=== PATIENT | male | born 1950 | race African-American/Black ===

== ENCOUNTER 2016-11-28 13:18 | Inpatient (IN) | payer MEDICARE, OTHER ==
[~2016-11-28] VITALS: Ht 182.9 cm; Wt 75.0 kg
[~2016-11-28 13:18] MED LIST: ALBU1AER INH; ASPI81TA82 PO; CARV3.125 PO; DABI150 PO; FE T325T PO; FLUT1INH INH; HYDR-3129 PO; LASI20TA PO; LEVO.1 PO; NOVOLOGSS SQ; RANI150 PO; SPIR25 PO
[2016-11-28 13:31] VITALS: BP 114/74; PULSE 87; RESP 16; TEMP 98.6; O2SAT 98
[2016-11-28 13:46] LABS: AUTOMATED NEUTROPHIL # 4.7 TH/MM3 (1.8-7.7); BASOPHIL % 0.4 % (0.0-2.0); EOSINOPHIL % 0.5 % (0.0-4.0); HEMATOCRIT 42.6 % (39.0-51.0); HEMO FLAGS DIFF FINAL; LYMPH % 27.4 % (9.0-44.0); LYMPHOCYTE # 2.2 TH/MM3 (1.0-4.8); MEAN CELL VOLUME 101.2 FL (80.0-100.0); MEAN CORPUSCULAR HEMOGLOBIN 34.3 PG (27.0-34.0); MEAN CORPUSCULAR HGB CONC 33.9 % (32.0-36.0); MONO % 12.1 % (0.0-8.0); NEUT % 59.6 % (16.0-70.0); PLATELET COUNT 138 TH/MM3 (150-450); RED BLOOD COUNT 4.21 MIL/MM3 (4.50-5.90); RED CELL DISTRIBUTION WIDTH 13.2 % (11.6-17.2); WHITE BLOOD COUNT 7.9 TH/MM3 (4.0-11.0)
[2016-11-28 13:50] LABS: APTT (PATIENT) 27.1 SEC (24.3-30.1); INTERNATIONAL NORMALIZED RATIO 1.1 RATIO; PROTHROMBIN TIME - PATIENT 12.1 SEC (9.8-11.6)
--- NOTE | 2016-11-28 13:51 | RADRPT ---
EXAM DATE/TIME: 11/28/2016 13:33 [facility] COMPARISON: CT BRAIN W/O CONTRAST, August 05, 2015, 17:03. INDICATIONS : Stroke alert, right upper extremity weakness. RADIATION DOSE: 56.35 CTDIvol (mGy) This report was called by Joseph to Novak at 1: 50 MEDICAL HISTORY : Non-responsive. SURGICAL HISTORY : Non-responsive. ENCOUNTER: Initial ACUITY: 1 day PAIN SCALE: Non-responsive LOCATION: Bilateral head TECHNIQUE: Multiple contiguous axial images were obtained of the head. Using automated exposure control and adj ustment of the mA and/or kV according to patient size, radiation dose was kept as low as reasonably a chievable to obtain optimal diagnostic quality images. FINDINGS: CEREBRUM: Remote occipital infarct on the right. Scattered areas of low attenuation throughout the white matter . The ventricles are normal for age. No evidence of midline shift, mass lesion, hemorrhage or acute infarction. No extra-axial fluid collections are seen. POSTERIOR FOSSA: The cerebellum and brainstem are intact. The 4th ventricle is midline. The cerebellopontine angle i s unremarkable. EXTRACRANIAL: The visualized portion of the orbits is intact. SKULL: The calvaria is intact. No evidence of skull fracture. CONCLUSION: 1. Remote right occipital infarct. 2. Chronic nonspecific white matter changes. Baudilio Ruiz MD on November 28, 2016 at 13:46 Board Certified Radiologist. This report was verified electronically.
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
[2016-11-28 14:07] LABS: BICARBONATE 24.8 MEQ/L (21.0-32.0); I-STAT POTASSIUM 4.2 MMOL/L (3.5-4.9); POTASSIUM 3.9 MEQ/L (3.5-5.1)
[2016-11-28 14:18] VITALS: BP 137/89; PULSE 89; RESP 18; O2SAT 99
[2016-11-28 14:46] LABS: BLOOD, URINE NEG (NEG); COMMENT (UR) CULT NOT INDICATED; CULTURE IF INDICATED CULT NOT INDICATED; GLUCOSE,URINE NEG (NEG); KETONE, URINE NEG (NEG); MUCUS URINE FEW /lpf (OCC); NITRITE,URINE NEG (NEG); PH, URINE 5.5 (5.0-8.5); SQUAMOUS EPITHELIAL CELL URINE <1 /hpf (0-5); URINE COLOR YELLOW (YELLW/STRAW)
[2016-11-28 14:58] LABS: AMPHETAMINE, URINE NEG (NEG); BARBITURATES, URINE NEG (NEG); COCAINE, URINE POS (NEG)
[2016-11-28] MEDS ORDERED: IOHEXOL 350 MG/ML 10 ML VIAL (for RAD DIAG) IV ONE (15:00)
[2016-11-28 15:39] VITALS: BP 147/88; PULSE 97; RESP 18; O2SAT 96
--- NOTE | 2016-11-28 15:55 | RADRPT ---
EXAM DATE/TIME: 11/28/2016 14:45 This report includes an Addendum and supersedes previous reports for this exam. [facility] COMPARISON: CT BRAIN W/O CONTRAST, November 28, 2016, 13:33. INDICATIONS : Stroke alert; right side weakness. IV CONTRAST: 75 cc Omnipaque 350 (iohexol) IV ; Cumulative dose for multiple exams. RADIATION DOSE: 15.85 CTDIvol (mGy) ; Combined studies MEDICAL HISTORY : Cardiovascular disease. Diabetes mellitus type 2. Lymphoma.Hypertension. SURGICAL HISTORY : CABG Coronary artery stent. ENCOUNTER: Initial ACUITY: 1 day PAIN SCALE: Non-responsive LOCATION: cranial TECHNIQUE: Volumetric scanning was performed using a multi-row detector CT scanner. The data was post processed with a variety of visualization algorithms including full volume maximum intensity projection, multi -planar sliding thin slab reformation, curved planar reformation, and surface rendering techniques. Using automated exposure control and adjustment of the mA and/or kV according to patient size, radiat ion dose was kept as low as reasonably achievable to obtain optimal diagnostic quality images. FINDINGS: There is truncation of the left proximal middle cerebral artery. This is likely related to acute thro mbosis. Clinical correlation is recommended. There is no filling of the distal branches of the left m iddle cerebral artery. The right middle cerebral artery is patent. The anterior cerebral arteries are patent bilaterally. The posterior cerebral arteries are patent bilaterally. Note is made of probable basilar tip aneurysm measuring 4 mm also. CONCLUSION: 1. Truncation of the left proximal middle cerebral artery with no filling of the distal branches kelsie cating probable acute thrombosis. Clinical correlation is recommended. 2. 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 Reggie Boykin MD on November 28, 2016 at 15:46 Board Certified Radiologist. This report was verified electronically. ADDENDUM: The finding were called to Dr. Sen at 3:55 PM on 11/28/16. Reggie Boykin MD on November 28, 2016 at 15:57 Board Certified Radiologist. This report was verified electronically.
--- NOTE | 2016-11-28 16:08 | RADRPT ---
EXAM DATE/TIME: 11/28/2016 14:45 [facility] COMPARISON: No previous studies available for comparison. INDICATIONS : Stroke alert; right side weakness. IV CONTRAST: 75 cc Omnipaque 350 (iohexol) IV ; Cumulative dose for multiple exams. RADIATION DOSE: 15.85 CTDIvol (mGy) ; Combined studies MEDICAL HISTORY : Cardiovascular disease. Hypertension. Diabetes mellitus type 2.Lymphoma. SURGICAL HISTORY : CABG Coronary artery stent. ENCOUNTER: Initial ACUITY: 1 day PAIN SCALE: Non-responsive LOCATION: neck Elevated flow velocities and ICA/CCA ratios have been found to correlate with increased degrees of vessel stenosis, calculated as percentage of diameter relative to a normal segment of distal ICA/CCA. TECHNIQUE: Volumetric scanning was performed using a multirow detector CT scanner. The data was post processed with a variety of visualization algorithms including full-volume maximum intensity projection, multip lanar sliding thin-slab reformation, curved-planar reformation, and surface-rendering techniques. Us ing automated exposure control and adjustment of the mA and/or kV according to patient size, radiatio n dose was kept as low as reasonably achievable to obtain optimal diagnostic quality images. FINDINGS: AORTIC ARCH: There is a bovine arch. No evidence of ostial narrowing. RIGHT CAROTID: The common carotid artery is intact. The carotid bulb has a normal configuration without ulceration o r narrowing. Mild calcified atherosclerotic plaque formation is noted within the right proximal inter nal carotid artery the results in no significant stenosis. The right external carotid artery is paten t. LEFT CAROTID: The common carotid artery is intact. The carotid bulb has a normal configuration without ulceration or narrowing. Moderate calcified atherosclerotic plaque formation is noted within the left proximal i nternal carotid artery resulting in approximately 50% stenosis. The left external carotid artery is p atent. VERTEBRALS: The vertebral arteries have a symmetric diameter. No stenotic lesions are seen. CONCLUSION: No significant stenosis of the internal carotid arteries. Approximately 50% stenosis of the left prox imal internal carotid artery. Calcified atherosclerotic plaque within the proximal internal carotid a rteries bilaterally slightly worse on the left. Reggie Boykin MD on November 28, 2016 at 16:00 Board Certified Radiologist. This report was verified electronically.
[2016-11-28 17:05] VITALS: BP 145/90; PULSE 92; RESP 18; O2SAT 95
[2016-11-28] MEDS ORDERED: ONDANSETRON HCL 4 MG/2 ML VIAL IVP PRN (17:30)
[2016-11-28] MEDS ORDERED: NALOXONE HCL 0.4 MG/ML AMP IV PRN (17:30)
[2016-11-28] MEDS ORDERED: SODIUM CHLORIDE 0.9% FLUSH 10 ML FLUSH IV FLUSH PRN ×2 (17:30→18:15)
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
[2016-11-28] MEDS ORDERED: DEXTROSE 50% IN WATER 50 ML VIAL(D50) IV PUSH PRN (18:15)
[2016-11-28] MEDS ORDERED: ENALAPRILAT 1.25 MG/ML VIAL IV PRN (18:15)
[2016-11-28] MEDS ORDERED: GLUCAGON 1 MG/ML VIAL IM/SQ PRN (18:15)
[2016-11-28 18:48] VITALS: BP 153/90; PULSE 78; RESP 20; TEMP 96.5; O2SAT 95
[2016-11-28 20:00] VITALS: BP 147/90; PULSE 97; RESP 22; TEMP 97.4; O2SAT 95
[2016-11-28] MEDS: ATORVASTATIN 10 MG TAB PO SCH (21:00)
[2016-11-28] MEDS: SODIUM CHLORIDE 0.9% FLUSH 10 ML FLUSH IV FLUSH SCH ×2 (21:00→22:53)
[2016-11-28] MEDS: INSULIN ASPART SUPPLEMENTAL SCALE SQ SCH (21:00)
[2016-11-29] VITALS (10 sets, daily range): BP systolic 126–164; BP diastolic 75–95; PULSE 94–101; RESP 18–28; TEMP 96.8–99; O2SAT 94–100
[2016-11-29] MEDS: INSULIN ASPART SUPPLEMENTAL SCALE SQ SCH ×4 (05:39→21:00)
[2016-11-29] MEDS: SODIUM CHLORIDE 0.9% FLUSH 10 ML FLUSH IV FLUSH SCH ×4 (08:03→21:59)
[2016-11-29] MEDS: ASPIRIN 81 MG CHEW TAB PO SCH ×2 (08:03→10:04)
[2016-11-29 08:23] LABS: HDL CHOLESTEROL 45.9 MG/DL (40.0-60.0)
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
--- NOTE | 2016-11-29 11:00 | RADRPT ---
EXAM DATE/TIME: 11/29/2016 10:43 [facility] COMPARISON: CT BRAIN W/O CONTRAST, November 28, 2016, 13:33. INDICATIONS : Follow up CVA RADIATION DOSE: 79.80 CTDIvol (mGy) MEDICAL HISTORY : Cardiovascular disease. Hypertension. Hepatitis C. SURGICAL HISTORY : NA ENCOUNTER: Subsequent ACUITY: 1 day PAIN SCALE: Non-responsive LOCATION: cranial TECHNIQUE: Multiple contiguous axial images were obtained of the head. Using automated exposure control and adj ustment of the mA and/or kV according to patient size, radiation dose was kept as low as reasonably a chievable to obtain optimal diagnostic quality images. FINDINGS: CEREBRUM: Remote infarct right occipital lobe. Scattered areas of low attenuation throughout the white matter. The ventricles are normal for age. No evidence of midline shift, mass lesion, hemorrhage or acute in farction. No extra-axial fluid collections are seen. POSTERIOR FOSSA: The cerebellum and brainstem are intact. The 4th ventricle is midline. The cerebellopontine angle i s unremarkable. EXTRACRANIAL: The visualized portion of the orbits is intact. SKULL: The calvaria is intact. No evidence of skull fracture. CONCLUSION: 1. Chronic ischemic small vessel vasculopathy. 2. Old right occipital infarct. 3. No acute intracranial abnormality. Baudilio Ruiz MD on November 29, 2016 at 10:56 Board Certified Radiologist. This report was verified electronically.
[2016-11-29 11:57] LABS: HEMOGLOBIN A1a 0.9 %; HEMOGLOBIN A1b 1.4 %; HEMOGLOBIN Ao 86.5 %; HEMOGLOBIN LA1C 1.7 %
--- NOTE | 2016-11-29 16:13 | EKG ---
Date Performed: 11/28/2016 Time Performed: 13:59:12 PTAGE: 65 years EKG: Sinus rhythm POSSIBLE LEFT ATRIAL ENLARGEMENT MODERATE INTRAVENTRICULAR CONDUCTION DELAY ST DEVIATION AND MODERAT E T-WAVE ABNORMALITY, CONSIDER LATERAL ISCHEMIA ST DEVIATION AND MODERATE T-WAVE ABNORMALITY, CONSIDE R INFERIOR ISCHEMIA Left vnricular hypertrophy. When compared to previous tracing, the frequent myrna ture Ventricular contractions have resolved. There may be a slight increase in the inferolatral ST Se gment Changes. Clinical corrolation is advised. ABNORMAL ECG PREVIOUS TRACING : 09/09/2015 10.12 DOCTOR: Trupti Mclean Interpretating Date/Time 11/29/2016 16:11:29
[2016-11-29] MEDS: RESP: ALBUTEROL 2.5 MG/IPRATROPIUM 0.5 MG NEB (PRN) NEB ×2 (16:16→21:43)
--- NOTE | 2016-11-29 17:13 | EC ---
Study Study Date:11/29/2016 STUDY CONCLUSIONS SUMMARY - Left ventricle: The cavity size was mildly to moderately dilated. Wall thickness was normal. Systolic function was normal. The estimated ejection fraction was in the range of 10% to 15%. Akinesis and scarring of the inferoposterior myocardium. - Aortic valve: Valve area: 1.64cm^2 (Vmax). - Mitral valve: Mild to moderate regurgitation. - Left atrium: The atrium was mildly to moderately dilated. - Tricuspid valve: Mild-moderate regurgitation. - Pulmonary arteries: PA peak pressure: 43mm Hg (S). If LV function is below 40, please consider prescribing an ACEI or ARB or document rationale for non-use. PROCEDURE DATA STUDY STATUS: Elective. Procedure: Transthoracic echocardiography. Image quality was good. Scanning was performed from the parasternal, apical, and subcostal acoustic windows. Study completion: The patient tolerated the procedure well. Transthoracic echocardiography. M-mode, complete 2D, complete spectral Doppler, and color Doppler. Height: Height: 72in. Weight: Weight: 169.6lb. Body mass index: BMI: 23.1kg/m^2. Body surface area: BSA: 1.99m^2. Patient status: Inpatient. CARDIAC ANATOMY LEFT VENTRICLE: The cavity size was mildly to moderately dilated. Wall thickness was normal. Systolic function was normal. The estimated ejection fraction was in the range of 10% to 15%. Regional wall motion abnormalities: Akinesis and scarring of the inferoposterior myocardium. AORTIC VALVE: Trileaflet; normal thickness leaflets. Doppler: Transvalvular velocity was within the normal range. There was no stenosis. No regurgitation. Valve area: 1.64cm^2 (Vmax). Indexed valve area: 0.82cm^2/m^2 (Vmax). AORTA: Aortic root: The aortic root was normal in size. MITRAL VALVE: Structurally normal valve. Doppler: Transvalvular velocity was within the normal range. There was no evidence for stenosis. Mild to moderate regurgitation. LEFT ATRIUM: The atrium was mildly to moderately dilated. RIGHT VENTRICLE: The cavity size was normal. Wall thickness was normal. PULMONIC VALVE: Doppler: Transvalvular velocity was within the normal range. There was no evidence for stenosis. No regurgitation. TRICUSPID VALVE: Structurally normal valve. Doppler: Transvalvular velocity was within the normal range. Mild-moderate regurgitation. PULMONARY ARTERY: The main pulmonary artery was normal-sized. Systolic pressure was within the normal range. RIGHT ATRIUM: The atrium was normal in size. PERICARDIUM: There was no pericardial effusion. SYSTEMIC VEINS: Inferior vena cava: The vessel was normal in size. Patient weight: 169.6lb _Ejection fraction:_ 65-75% _Fractional shortening:_ 32% up to 5Kg 5-11.5Kg 11.6-22.9Kg 23-45Kg 45-57Kg Aortic Root 7-13 <17 13-22 17-27 17-27 LA diam 6-13 <23 24-38 33-47 37-40 RVID 10-17 7-15 7-15 7-18 8-17 LVIDd 12-22 <32 24-38 33-47 37-40 LVPW 2-4 3-6 5-7 6-8 7-8 IVS 2-4 3-6 5-7 6-8 7-8 BASIC MEASUREMENTS ADULT NORMAL Left ventricle LV internal dimension, ED, chordal *60.4 mm 43-52 level, PLAX LV internal dimension, ES, chordal *58.7 mm 23-38 level, PLAX Fractional shortening, chordal level, *3 % >29 PLAX LV posterior wall thickness, ED 10.5 mm IVS/LVPW ratio, ED 1.01 <1.3 Volume, ED, MOD, 1-plane 135 ml Volume, ES, MOD, 1-plane 122 ml Ejection fraction, MOD, 1-plane 10 % Stroke volume, MOD, 1-plane 13 ml Volume index, ED, MOD, 1-plane 68 ml/m^2 Volume index, ES, MOD, 1-plane 61 ml/m^2 Stroke index, MOD, 1-plane 6.5 ml/m^2 Volume, ED, MOD, 2-plane 131 ml Volume, ES, MOD, 2-plane 120 ml Ejection fraction, MOD, 2-plane 8 % Stroke volume, MOD, 2-plane 11 ml Volume index, ED, MOD, 2-plane 66 ml/m^2 Volume index, ES, MOD, 2-plane 60 ml/m^2 Stroke index, MOD, 2-plane 5.5 ml/m^2 Ventricular septum Septal thickness, ED 10.6 mm Aortic valve Leaflet separation 19 mm 15-26 BASIC MEASUREMENTS ADULT NORMAL Aortic valve Leaflet separation 19 mm 15-26 Aorta Root diameter, ED 36 mm 20-37 Left atrium Anterior-posterior dimension, ES *47 mm 19-40 Anterior-posterior dimension index, ES *2.36 cm/m^2 <2.2 LA/aortic root ratio 1.31 DOPPLER MEASUREMENTS ADULT NORMAL Main pulmonary artery Pressure, S *43 mm Hg =30 Pressure, ED 25 mm Hg Aortic valve Peak velocity, S 90.9 cm/s Valve area, Vmax 1.64 cm^2 Valve area index, Vmax 0.82 cm^2/m^2 Mitral valve Maximal regurgitant velocity 431 cm/s Tricuspid valve Regurgitant peak velocity 282 cm/s Peak RV-RA gradient, S 32 mm Hg Maximal regurgitant velocity 282 cm/s Systemic veins Estimated CVP 10 mm Hg Right ventricle RV pressure, S *45 mm Hg <30 Pulmonic valve Peak velocity, S 69.2 cm/s Regurgitant velocity, ED 195 cm/s LEGEND: Mean values are shown as u=mean value. Asterisk (*) duarte values outside specified normal range. Prepared and signed by Rich Horne [id number]
[2016-11-29] MEDS: ATORVASTATIN 10 MG TAB PO SCH (21:59)
[2016-11-30] VITALS (12 sets, daily range): BP systolic 119–142; BP diastolic 72–92; PULSE 96–115; RESP 20–25; TEMP 97.7–99.7; O2SAT 96–100
[2016-11-30] MEDS: INSULIN ASPART SUPPLEMENTAL SCALE SQ SCH ×4 (05:10→21:49)
[2016-11-30] MEDS: SODIUM CHLORIDE 0.9% FLUSH 10 ML FLUSH IV FLUSH SCH ×4 (08:00→21:49)
[2016-11-30] MEDS: ASPIRIN 81 MG CHEW TAB PO SCH (08:36)
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
[2016-11-30] MEDS ORDERED: CARV3.125 PO (10:16)
[2016-11-30] MEDS ORDERED: TRAZ50TA12 PO (10:16)
[2016-11-30] MEDS ORDERED: RANI150C PO (10:16)
[2016-11-30] MEDS ORDERED: XANA1TAB2 PO (10:16)
[2016-11-30] MEDS ORDERED: FLUT1INH INH (10:16)
[2016-11-30] MEDS ORDERED: ASPI81CH CHEW (10:16)
[2016-11-30] MEDS ORDERED: FURO40TA PO (10:16)
[2016-11-30] MEDS ORDERED: ZOLO100T PO (10:16)
[2016-11-30] MEDS ORDERED: LISI-519 PO (10:16)
[2016-11-30] MEDS ORDERED: LEVO100T5 PO (10:16)
[2016-11-30] MEDS ORDERED: LYRI50CA PO (10:16)
[2016-11-30] MEDS ORDERED: LACT10SO PO (10:16)
[2016-11-30] MEDS ORDERED: POTA10TA8 PO (10:16)
[2016-11-30] MEDS ORDERED: HYDR-3535 PO (10:16)
[2016-11-30] MEDS ORDERED: SPIR25 PO (10:16)
[2016-11-30] MEDS: CARVEDILOL 3.125 MG TAB PO SCH ×2 (11:30→21:45)
--- NOTE | 2016-11-30 11:57 | HHI.PR ---
Subjective Remarks still aphasic Objective Vital Signs Date Time Temp Pulse Resp B/P Pulse Ox O2 Delivery O2 Flow Rate FiO2 11/30/16 08:39 98.4 101 20 140/85 100 11/30/16 08:35 Nasal Cannula 2.00 11/30/16 04:00 98.1 101 20 119/76 98 11/30/16 02:05 96 11/30/16 00:00 99.7 102 20 131/82 96 11/29/16 21:45 95 Nasal Cannula 2.00 11/29/16 20:00 96.8 101 20 126/79 99 11/29/16 16:00 99 Nasal Cannula 2.00 11/29/16 16:00 99.0 96 19 126/78 99 11/29/16 12:00 98.9 94 19 132/95 100 I/O 11/29/16 11/29/16 11/29/16 11/30/16 11/30/16 11/30/16 07:00 15:00 23:00 07:00 15:00 23:00 Intake Total 60 ml Balance 60 ml Intake Oral 60 ml # Voids 2 2 2 # Bowel Movements 0 0 0 Result Diagram: 11/28/16 1320 11/28/16 1320 Objective Remarks awake alert aphasic motor intact sits at edge of bed stilll mild righ side weakness gait defer to PT Medications and IVs a/p left mca stroke restart AC as high risk for more infarcts given his hx. f/u ct 11/29 neg. pt-ot st d/c -Padmini Cook MD November 30, 2016 11:57
[2016-11-30] MEDS: ATORVASTATIN 10 MG TAB PO SCH (21:45)
[2016-11-30] MEDS: FUROSEMIDE 40 MG TAB PO SCH (21:46)
[2016-12-01] VITALS (9 sets, daily range): BP systolic 110–140; BP diastolic 67–82; PULSE 89–107; RESP 18–24; TEMP 96–99.9; O2SAT 97–100
[2016-12-01] MEDS: INSULIN ASPART SUPPLEMENTAL SCALE SQ SCH ×4 (07:00→20:58)
[2016-12-01] MEDS: SODIUM CHLORIDE 0.9% FLUSH 10 ML FLUSH IV FLUSH SCH ×4 (09:00→20:59)
[2016-12-01] MEDS: FLUTICASONE 100 MCG/VILANTEROL 25 MCG INHALER INH SCH (09:00)
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
[2016-12-01] MEDS: LEVOTHYROXINE SODIUM 100 MCG TAB PO SCH (09:51)
[2016-12-01] MEDS: ASPIRIN 81 MG CHEW TAB PO SCH (09:51)
[2016-12-01] MEDS: POTASSIUM CHLORIDE 10 MEQ CONTROLLED RELEASE TAB PO SCH (09:51)
[2016-12-01] MEDS: LISINOPRIL 5 MG TAB PO SCH (09:51)
[2016-12-01] MEDS: CARVEDILOL 3.125 MG TAB PO SCH ×2 (09:51→20:56)
[2016-12-01] MEDS: SPIRONOLACTONE 25 MG TAB PO SCH (09:51)
[2016-12-01] MEDS: FUROSEMIDE 40 MG TAB PO SCH ×2 (09:51→20:56)
--- NOTE | 2016-12-01 14:38 | HM ---
Date Performed: 11/28/2016 Time Performed: 19:50:00 HOOKUP DATE: 11/28/16 07:50:00 PM Sat ANALYSIS START TIME: 11/28/2016 7:55:00 PM ANALYSIS END TIME: 11/29/2016 7:13:00 PM PATIENT AGE: 65 PATIENT HEIGHT PATIENT WEIGHT DRUG LIST PATIENT DIAGNOSIS: cva TEST NARRATIVE: The patient's average heart rate was 99 BPM. Heart rates greater than 120 B PM were noted 1% of the time. No episodes of bradycardia were noted. No pauses exceeding 2.0 sec onds were noted. 2725 ventricular ectopics, which represented 2% of the total beat count, were no [place]. The highest ventricular ectopic frequency occurred from 10:00 AM to 11:00 AM Sun. During this time 183 VE(s) occurred. Ventricular ectopics were observed as 1917 isolated beat(s), as 353 couplet (s) and as 30 run(s). Some of the ventricular beats occurred in bigeminal cycles. 5 supraventric ular ectopics, which represented < 1% of the total beat count, were noted. The highest supraventricu lar ectopic frequency occurred from 11:00 PM to 12:00 AM Sun. During this time 3 SVE(s) occurred. Multiple episodes of ST depression (defined as -1.0 mm or more) were noted in channel 1. The maxi mum depression of -3.8 mm occurred at 07:07:30 PM Sun. Multiple episodes of ST depression (defined a s -1.0 mm or more) were noted in channel 2. The maximum depression of -4.1 mm occurred at 07:54:04 AM Sun. Multiple episodes of ST depression (defined as -1.0 mm or more) were noted in channel 3. T he maximum depression of -3.9 mm occurred at 01:43:54 PM Sun. TEST INTERPRETATION: The patient is monitored for 24 hours 18 minutes. The average heart rate wa s 99, minimum heart rate 65, maximum heart rate of 128. A number of nonsustained ventricular tachycar tammy runs are seen up to 10 beats at about 169 bpm. CONCLUSIONS: 1. Abnormal Holter monitor most note able for multiple runs of nonsustained ventricular tachycardia up to about 10 beats generally in the range of 150-175 bpm. Clinical correlation is required. There is no sustained atrial fibrillation. Signed by : Sina Castellon
[2016-12-01] MEDS: ATORVASTATIN 10 MG TAB PO SCH (20:56)
[2016-12-02] VITALS (8 sets, daily range): BP systolic 105–133; BP diastolic 64–78; PULSE 76–90; RESP 18–22; TEMP 97.4–98.9; O2SAT 93–98
[2016-12-02] MEDS: INSULIN ASPART SUPPLEMENTAL SCALE SQ SCH ×4 (07:00→21:58)
[2016-12-02] MEDS: FLUTICASONE 100 MCG/VILANTEROL 25 MCG INHALER INH SCH (09:00)
[2016-12-02] MEDS: SODIUM CHLORIDE 0.9% FLUSH 10 ML FLUSH IV FLUSH SCH ×4 (09:00→22:37)
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
[2016-12-02] MEDS: ASPIRIN 81 MG CHEW TAB PO SCH (09:43)
[2016-12-02] MEDS: LEVOTHYROXINE SODIUM 100 MCG TAB PO SCH (09:43)
[2016-12-02] MEDS: SPIRONOLACTONE 25 MG TAB PO SCH (09:44)
[2016-12-02] MEDS: CARVEDILOL 3.125 MG TAB PO SCH ×2 (09:44→22:38)
[2016-12-02] MEDS: POTASSIUM CHLORIDE 10 MEQ CONTROLLED RELEASE TAB PO SCH (09:44)
[2016-12-02] MEDS: FUROSEMIDE 40 MG TAB PO SCH ×2 (09:44→22:38)
[2016-12-02] MEDS: LISINOPRIL 5 MG TAB PO SCH (09:44)
[2016-12-02] MEDS ORDERED: BISACODYL 10 MG SUPP RECTAL PRN (10:45)
[2016-12-02] MEDS ORDERED: MAGNESIUM CITRATE SOLN 300 ML BTL PO ONE (12:45)
[2016-12-02 17:31] LABS: BICARBONATE 23.3 MEQ/L (21.0-32.0)
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
[2016-12-02] MEDS: DABIGATRAN ETEXILATE 150 MG CAP PO SCH (22:38)
[2016-12-02] MEDS: ATORVASTATIN 10 MG TAB PO SCH (22:38)
[2016-12-03] VITALS (7 sets, daily range): BP systolic 125–140; BP diastolic 62–83; PULSE 72–92; RESP 18–20; TEMP 97–97.9; O2SAT 94–99
[2016-12-03] MEDS: INSULIN ASPART SUPPLEMENTAL SCALE SQ SCH ×2 (06:45→11:00)
[2016-12-03] MEDS: FLUTICASONE 100 MCG/VILANTEROL 25 MCG INHALER INH SCH (09:00)
[2016-12-03] MEDS: SODIUM CHLORIDE 0.9% FLUSH 10 ML FLUSH IV FLUSH SCH ×2 (09:00→09:18)
[2016-12-03] MEDS: DABIGATRAN ETEXILATE 150 MG CAP PO SCH (09:14)
[2016-12-03] MEDS: LEVOTHYROXINE SODIUM 100 MCG TAB PO SCH (09:14)
[2016-12-03] MEDS: SPIRONOLACTONE 25 MG TAB PO SCH (09:14)
[2016-12-03] MEDS: FUROSEMIDE 40 MG TAB PO SCH (09:14)
[2016-12-03] MEDS: ASPIRIN 81 MG CHEW TAB PO SCH (09:15)
[2016-12-03] MEDS: POTASSIUM CHLORIDE 10 MEQ CONTROLLED RELEASE TAB PO SCH (09:15)
[2016-12-03] MEDS: CARVEDILOL 3.125 MG TAB PO SCH (09:15)
[2016-12-03] MEDS: LISINOPRIL 5 MG TAB PO SCH (09:18)
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
[2016-12-03] MEDS ORDERED: PRAD150C PO (12:04)
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
== END 2016-12-03 18:35 | DRG 65 ==
LOC: NEPE 13:18 → NEDA 17:32 → N05B 18:22
PROVIDERS: ADMIT Hospitalist; ATTEND Hospitalist
DX: I63.312 Cerebral infarction due to thrombosis of left middle cerebral artery (principal); G81.91 Hemiplegia, unspecified affecting right dominant side; I47.2 Ventricular tachycardia; C85.90 Non-Hodgkin lymphoma, unspecified, unspecified site; I11.0 Hypertensive heart disease with heart failure; I50.9 Heart failure, unspecified; R47.01 Aphasia; R29.810 Facial weakness; E11.9 Type 2 diabetes mellitus without complications; R47.1 Dysarthria and anarthria; I65.22 Occlusion and stenosis of left carotid artery; E03.9 Hypothyroidism, unspecified; I25.10 Atherosclerotic heart disease of native coronary artery without angina pectoris; K21.9 Gastro-esophageal reflux disease without esophagitis; I25.2 Old myocardial infarction; F10.10 Alcohol abuse, uncomplicated; F12.10 Cannabis abuse, uncomplicated; F14.10 Cocaine abuse, uncomplicated; F17.210 Nicotine dependence, cigarettes, uncomplicated; Z79.01 Long term (current) use of anticoagulants; Z86.718 Personal history of other venous thrombosis and embolism; Z92.21 Personal history of antineoplastic chemotherapy; Z95.1 Presence of aortocoronary bypass graft; Z95.5 Presence of coronary angioplasty implant and graft
CPT/HCPCS: 70450; 70496; 70498; 76937; 80048; 80061; 80307; 81001; 82140; 82435; 82550; 82565; 82947; 82948; 83036; 83605; 83735; 84132; 84295; 84484; 84520; 85025; 85384; 85610; 85730; 86850; 86900; 86901; 93005; 93225; 93226; 93306; 94640; 94664; 99292; Q9967

== ENCOUNTER 2017-04-25 14:01 | Inpatient (IN) | payer MEDICARE, OTHER ==
[2017-04-25] VITALS (7 sets, daily range): BP systolic 99–114; BP diastolic 60–75; PULSE 70–142; RESP 19–32; TEMP 97.2–99.2; O2SAT 96–100
[~2017-04-25] VITALS: Ht 172.7 cm; Wt 67.0 kg
[~2017-04-25 14:01] MED LIST changes: -ALBU1AER INH; +ASPI81CH CHEW; -ASPI81TA82 PO; -DABI150 PO; -FE T325T PO; +FURO40TA PO; -HYDR-3129 PO; -LASI20TA PO; -LEVO.1 PO; +LEVO100T5 PO; +LISI-519 PO; +LYRI50CA PO; -NOVOLOGSS SQ; +POTA10TA8 PO; +PRAD150C PO; -RANI150 PO; +RANI150C PO; +ZOLO100T PO
[2017-04-25 14:50] LABS: BLOOD GAS BASE EXCESS -1.5 mmol/L (-2-2); BLOOD GAS CARBOXYHEMOGLOBIN 1.1 % (0-4); BLOOD GAS HCO3 22 mmol/L (22-26); BLOOD GAS METHEMOGLOBIN 0.5 % (0-2); BLOOD GAS O2 HGB SATURATION 93 % (90-100); BLOOD GAS OXYGEN CONTENT 21.1 Vol % (12.0-20.0); BLOOD GAS PCO2 30 mmHg (38-42); BLOOD GAS PO2 79 mmHG (61-120); BLOOD GAS TOTAL HGB 16.1 G/DL (12.0-16.0); CRITICAL VALUE NO; DRAW SITE RT FEMORAL; LITER FLOW 4 L/M; NUMBER OF ARTERIAL PUNCTURES 1; OXYGEN DEVICE NASAL CANNULA; STAT YES; TEMP CORR TO 98.6
[2017-04-25 14:50] LABS: AUTOMATED NEUTROPHIL # 6.3 TH/MM3 (1.8-7.7); BASOPHIL % 0.2 % (0.0-2.0); EOSINOPHIL % 0.1 % (0.0-4.0); HEMATOCRIT 53.6 % (39.0-51.0); HEMO FLAGS DIFF FINAL; LYMPH % 13.3 % (9.0-44.0); LYMPHOCYTE # 1.1 TH/MM3 (1.0-4.8); MEAN CELL VOLUME 99.6 FL (80.0-100.0); MEAN CORPUSCULAR HEMOGLOBIN 33.4 PG (27.0-34.0); MEAN CORPUSCULAR HGB CONC 33.6 % (32.0-36.0); MONO % 13.4 % (0.0-8.0); PLATELET COUNT 166 TH/MM3 (150-450); RED BLOOD COUNT 5.38 MIL/MM3 (4.50-5.90); RED CELL DISTRIBUTION WIDTH 14.7 % (11.6-17.2); WHITE BLOOD COUNT 8.6 TH/MM3 (4.0-11.0)
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
[2017-04-25 14:58] LABS: APTT (PATIENT) 34.8 SEC (24.3-30.1); INTERNATIONAL NORMALIZED RATIO 1.8 RATIO; PROTHROMBIN TIME - PATIENT 20.1 SEC (9.8-11.6)
[2017-04-25 15:03] LABS: ANION GAP 14 MEQ/L (5-15); BICARBONATE 20.8 MEQ/L (21.0-32.0); BLOOD UREA NITROGEN 105 MG/DL (7-18); CHLORIDE 106 MEQ/L (98-107); GLOMERULAR FILTRATION RATE 46 ML/MIN (>89); POTASSIUM 3.6 MEQ/L (3.5-5.1); SODIUM (NA) 141 MEQ/L (136-145)
[2017-04-25 15:03] LABS: BLOOD, URINE MOD (NEG); COMMENT (UR) CULT NOT INDICATED; CULTURE IF INDICATED CULT NOT INDICATED; GLUCOSE,URINE NEG (NEG); KETONE, URINE NEG (NEG); NITRITE,URINE NEG (NEG); PH, URINE 5.5 (5.0-8.5); SQUAMOUS EPITHELIAL CELL URINE 1 /hpf (0-5); URINE COLOR YELLOW (YELLW/STRAW)
--- NOTE | 2017-04-25 15:09 | RADRPT ---
EXAM DATE/TIME: 04/25/2017 14:43 [facility] COMPARISON: CHEST SINGLE AP, September 09, 2015, 10:38. INDICATIONS : Short of Breath MEDICAL HISTORY : Cardiovascular disease. Hypertension. Hepatitis C. SURGICAL HISTORY : CABG. ENCOUNTER: Initial ACUITY: 1 day PAIN SCORE: Non-responsive. LOCATION: Bilateral chest FINDINGS: There is advanced cardiomegaly. There is no overt congestive failure. The lungs are clear. The patient is post median sternotomy. The osseous structures are intact. CONCLUSION: 1. Cardiomegaly without overt congestive failure. 2. Stable compared to previous study dated 09/09/15. Get Desir MD on April 25, 2017 at 15:07 Board Certified Radiologist. This report was verified electronically.
[2017-04-25] MEDS ORDERED: SODIUM CHLOR 0.9% 1000 ML INJ 1,000 ML IV ONE (15:15)
[2017-04-25 15:17] LABS: ALKALINE PHOSPHATASE 93 U/L (45-117); ALT (GPT) 1153 U/L (12-78); AST (GOT) 1285 U/L (15-37); CREATINE KINASE 2242 U/L (39-308)
--- NOTE | 2017-04-25 15:44 | RADRPT ---
EXAM DATE/TIME: 04/25/2017 15:26 [facility] COMPARISON: CT BRAIN W/O CONTRAST, November 29, 2016, 10:43. INDICATIONS : Altered mental status. RADIATION DOSE: 29.15 CTDIvol (mGy) MEDICAL HISTORY : Cardiovascular disease. Stroke Hepatitis C. SURGICAL HISTORY : CABG ENCOUNTER: Initial ACUITY: 1 day PAIN SCALE: Non-responsive LOCATION: cranial TECHNIQUE: Multiple contiguous axial images were obtained of the head. Using automated exposure control and adj ustment of the mA and/or kV according to patient size, radiation dose was kept as low as reasonably a chievable to obtain optimal diagnostic quality images. DICOM format image data is available electro nically for review and comparison. FINDINGS: There are stable areas of encephalomalacia in the left basal ganglia in the low convexity right parie darrin region. A small area of encephalomalacia in the anterior left temporal region was likely acute or subacute at the time of the prior scan and now appears remote. There is patchy moderate diminished a ttenuation in deep white matter structures elsewhere consistent with microvascular ischemic change. T here is no evidence of intracranial hemorrhage or mass. There is nothing to specifically suggest acut e infarction. The extracranial structures are benign and intact. CONCLUSION: Old strokes and chronic white matter changes. Martir Gauthier MD on April 25, 2017 at 15:40 Board Certified Radiologist. This report was verified electronically.
[2017-04-25 15:55] LABS: CKMB 12.4 NG/ML (0.5-3.6)
--- NOTE | 2017-04-25 16:10 | RADRPT ---
EXAM DATE/TIME: 04/25/2017 15:34 [facility] COMPARISON: No previous studies available for comparison. INDICATIONS : Abdominal pain. ORAL CONTRAST: No oral contrast ingested. RADIATION DOSE: 9.96 CTDIvol (mGy) MEDICAL HISTORY : Stroke. Hepatitis C. Congestive heart failure. SURGICAL HISTORY : CABG ENCOUNTER: Initial ACUITY: 1 day PAIN SCALE: Non-responsive LOCATION: Bilateral abdomen TECHNIQUE: Volumetric scanning of the abdomen and pelvis was performed. Using automated exposure control and ad justment of the mA and/or kV according to patient size, radiation dose was kept as low as reasonably achievable to obtain optimal diagnostic quality images. DICOM format image data is available electro nically for review and comparison. FINDINGS: Cardiomegaly. Median sternotomy. Coronary calcification. Lung bases are clear. There are degenerative changes of the spine noted. Metallic foreign body is noted to the left of L5-S1 and L4 vertebral bod ies. Liver, spleen, left kidney, pancreas, adrenal glands unremarkable. There is high attenuation wit hin the gallbladder possibly representing sludge or vicarious excretion of contrast from previous con trasted study. There is a cyst at the midpole of the right kidney, simple in appearance measuring 5.8 cm. There is a 2 mm nonobstructing right lower pole calculus. Atherosclerotic calcification of the a leesa and iliac vessels. Dasilva catheter is noted within the urinary bladder which contains a small monty unt of air. No evidence of bowel obstruction. No adenopathy or aneurysm.. CONCLUSION: 1. Atherosclerosis. 2. Right renal cyst and right lower pole nonobstructing renal calculus. 3. No inflammatory changes are seen. Archie Oshea MD on April 25, 2017 at 16:06 Board Certified Radiologist. This report was verified electronically.
[2017-04-25] MEDS ORDERED: SODIUM CHLORID 0.9% 500 ML INJ 500 ML IV ONE (16:15)
[2017-04-25] MEDS ORDERED: metroNIDAZOLE 500 MG INJ 100 ML IV ONE (16:15)
[2017-04-25] MEDS ORDERED: PIPERACIL-TAZO 2.25 GM PREMIX 50 ML IV ONE (16:15)
[2017-04-25] MEDS ORDERED: DILTIAZEM HCL 25 MG/5 ML VIAL IV ONE ×2 (16:30→17:45)
[2017-04-25 16:41] LABS: LACTIC ACID GHOST NOT REPORTABLE
[2017-04-25 17:21] LABS: ACETAMINOPHEN LESS THAN 2.0 MCG/ML (10.0-30.0); ALCOHOL LESS THAN 3 MG/DL (0-5)
[2017-04-25] MEDS ORDERED: POTA10TA15 PO (18:40)
[2017-04-25] MEDS ORDERED: NITR0.4S SL (18:40)
[2017-04-25] MEDS ORDERED: PRAD150C PO (18:40)
[2017-04-25] MEDS ORDERED: LEVO125T4 PO (18:40)
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
[2017-04-25] MEDS ORDERED: CHLORHEXIDINE GLUCONATE 2 % 1 PACK (2 CLOTHS)(extra cloths) TOPICAL PRN (22:30)
[2017-04-25] MEDS ORDERED: MISCELLANEOUS NURSING INFORMATION XX SCH (22:45)
[2017-04-25] MEDS ORDERED: ONDANSETRON HCL 4 MG/2 ML VIAL IV PUSH PRN (22:45)
[2017-04-25] MEDS ORDERED: SODIUM CHLORIDE 0.9% FLUSH 10 ML FLUSH IV FLUSH PRN (22:45)
[2017-04-25] MEDS ORDERED: MAGNESIUM HYDROXIDE SUSP 30 ML CUP PO PRN (22:45)
[2017-04-25] MEDS ORDERED: DILTIAZEM HCL 25 MG/5 ML VIAL IV PUSH ONE (22:45)
[2017-04-25] MEDS ORDERED: RESP: ALBUTEROL 2.5 MG/3 ML NEB (PRN) INH (22:45)
[2017-04-25] MEDS ORDERED: SENNOSIDES 8.6 MG TAB PO PRN (22:45)
[2017-04-25] MEDS ORDERED: CHLORHEXIDINE GLUCONATE 2 % 1 PACK (2 CLOTHS) TOP PRN (22:45)
[2017-04-25] MEDS ORDERED: LACTULOSE SYRUP 20 GM/30 ML CUP PO PRN (22:45)
[2017-04-25] MEDS ORDERED: DILTIAZEM INJ 125 MG in SODIUM CHLORIDE 0.9% INJ 100 ML IV PRN (22:45)
[2017-04-25] MEDS ORDERED: BISACODYL 10 MG SUPP RECTAL PRN (22:45)
[2017-04-25] MEDS ORDERED: ASPIRIN 81 MG CHEW TAB CHEW ONE (23:30)
[2017-04-26] VITALS (13 sets, daily range): BP systolic 84–107; BP diastolic 59–67; PULSE 67–122; RESP 22–32; TEMP 97.2–97.8; O2SAT 96–100
[2017-04-26] MEDS: CEFEPIME INJ 2,000 MG in SODIUM CHLORIDE 0.9% INJ 100 ML IV SCH ×2 (00:29→14:29)
[2017-04-26] MEDS: DABIGATRAN ETEXILATE 150 MG CAP PO SCH ×3 (00:30→21:30)
[2017-04-26] MEDS ORDERED: DIGOXIN 0.5 MG/2 ML VIAL IV PUSH ONE (03:00)
[2017-04-26] MEDS: CHLORHEXIDINE GLUCONATE 2 % 1 PACK (2 CLOTHS) TOP SCH (03:12)
[2017-04-26] MEDS: CHLORHEXIDINE GLUCONATE 2 % 1 PACK (2 CLOTHS)(taper/protocol) TOPICAL SCH (03:12)
[2017-04-26] MEDS: RESP: ALBUTEROL 2.5 MG/IPRATROPIUM 0.5 MG NEB (SCH) INH ×4 (04:17→20:27)
[2017-04-26 05:01] LABS: AUTOMATED NEUTROPHIL # 5.1 TH/MM3 (1.8-7.7); BASOPHIL % 0.1 % (0.0-2.0); EOSINOPHIL % 0.3 % (0.0-4.0); HEMATOCRIT 52.5 % (39.0-51.0); HEMO FLAGS DIFF FINAL; LYMPH % 12.4 % (9.0-44.0); LYMPHOCYTE # 0.9 TH/MM3 (1.0-4.8); MEAN CELL VOLUME 100.9 FL (80.0-100.0); MEAN CORPUSCULAR HEMOGLOBIN 32.9 PG (27.0-34.0); MEAN CORPUSCULAR HGB CONC 32.6 % (32.0-36.0); MONO % 14.4 % (0.0-8.0); NEUT % 72.8 % (16.0-70.0); PLATELET COUNT 149 TH/MM3 (150-450); RED CELL DISTRIBUTION WIDTH 14.9 % (11.6-17.2)
[2017-04-26 05:06] LABS: ANION GAP 11 MEQ/L (5-15); AST (GOT) 937 U/L (15-37); BICARBONATE 21.6 MEQ/L (21.0-32.0); BLOOD UREA NITROGEN 98 MG/DL (7-18); CHLORIDE 112 MEQ/L (98-107); GLOMERULAR FILTRATION RATE 47 ML/MIN (>89); MAGNESIUM 3.6 MG/DL (1.5-2.5); POTASSIUM 3.9 MEQ/L (3.5-5.1); SODIUM (NA) 145 MEQ/L (136-145)
[2017-04-26 05:17] LABS: ALKALINE PHOSPHATASE 87 U/L (45-117); ALT (GPT) 1011 U/L (12-78); TOTAL BILIRUBIN ADULT 5.1 MG/DL (0.2-1.0)
--- NOTE | 2017-04-26 05:52 | RADRPT ---
EXAM DATE/TIME: 04/26/2017 03:43 [facility] COMPARISON: CHEST SINGLE AP, April 25, 2017, 14:43. INDICATIONS : Shortness of breath, possible pulmonary disease. MEDICAL HISTORY : Cardiovascular disease. Hepatitis C. Hypertension. SURGICAL HISTORY : CABG. ENCOUNTER: Subsequent ACUITY: 2 days PAIN SCORE: Non-responsive. LOCATION: Bilateral chest FINDINGS: Lungs are focally clear. No pleural effusion evident. Cardiac contours are stable with mild cardiac e nlargement. Sternotomy wires noted.. CONCLUSION: Stable chest Martir Gauthier MD on April 26, 2017 at 5:51 Board Certified Radiologist. This report was verified electronically.
[2017-04-26] MEDS: LEVOTHYROXINE SODIUM 125 MCG TAB PO SCH (06:00)
[2017-04-26] MEDS: PANTOPRAZOLE SODIUM 40 MG VIAL IV PUSH SCH (09:00)
[2017-04-26] MEDS: DOCUSATE SODIUM 50 MG/SENNA 8.6 MG TAB PO SCH ×2 (09:00→21:30)
[2017-04-26] MEDS: ASPIRIN 81 MG CHEW TAB CHEW SCH (09:00)
[2017-04-26] MEDS: SODIUM CHLORIDE 0.9% FLUSH 10 ML FLUSH IV FLUSH SCH ×2 (09:00→21:30)
[2017-04-26] MEDS: FLUTICASONE 100 MCG/VILANTEROL 25 MCG INHALER INH SCH (09:00)
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
[2017-04-26] MEDS ORDERED: DIGOXIN 0.5 MG/2 ML VIAL IV PUSH SCH (11:00)
--- NOTE | 2017-04-26 12:08 | EKG ---
Date Performed: 04/26/2017 Time Performed: 04:56:46 PTAGE: 66 years EKG: Atrial flutter with 4:1 A-V block Right bundle branch block Possible anteroseptal infarct - age undetermined LVH with secondary repolarization abnormality Inferior/lateral ST-T changes may be due to hypertrophy and/or ischemia Compared to previous tracing rate has slowed significantly Abnorma l ECG PREVIOUS TRACING : 04/25/2017 23.38 DOCTOR: Gene Lima Interpretating Date/Time 04/26/2017 12:07:40
--- NOTE | 2017-04-26 12:48 | EKG ---
Date Performed: 04/25/2017 Time Performed: 23:38:10 PTAGE: 66 years EKG: Atrial flutter with rapid ventricular response Cannot rule out anteroseptal infarct - age u ndetermined LVH with secondary repolarization abnormality Inferior/lateral ST-T changes may be due to hypertrophy and/or ischemia Abnormal ECG Compared to prior tracing no significant change PREVIOUS TRACING : 04/25/2017 14.07 DOCTOR: Gene Lima Interpretating Date/Time 04/26/2017 12:46:47
--- NOTE | 2017-04-26 13:44 | PD.WCN.NOT ---
Wound Consult Description: Received consult from Doctor Topete for wound management of R buttock wound Communicated with: MINOO Patel 5th floor [facility] and Doctor Isidra Davis Recommendation: Please cleanse buttock wound with normal saline or wound cleanser and pat dry. [place] periwound with skin prep and cover with ABD pad and paper tape. Change dressing as needed. Additional Information: Patient seen earlier around 1230 on the 5th floor [facility], for evaluation of wound to R buttock. Patient had been laying in recliner chair for 30 hours per history and physical, before coming to the hospital. Patient noted laying on [facility] Aparna low airloss bed. Turned patient to L side with moderate assistance of proposal manager writer for wound assessment. Patient noted with large open wound to R buttock . Wound measures 15cm x 10cm. Wound appears to have been a deep tissue injury which is still opening at 12 o'clock. Wound has minimal sanguinous drainage without odor. Wound bed presents with ~70% red non granulation tissue, ~20% soft thin black tissue, and ~10% yellow tissue at edges.Wound has large oval shape with defined wound margins.Cleansed wound with normal saline and sprayed periwound with skin prep before applying two ABD pads over wound bed in a staggered fashion. Secured dressing with ABD pad and tape. [employer] emergency department manager was turned on and bed was set for the correct weight.Removed thick cloth under pad and soiled ultra sorb pad under patient. Also removed saturated towel placed over patient's catheter. Applied new ultra sorb pad under patient.Pillow placed under R buttock to Offload pressure. Leona Sinclair [facility] Apr 26, 2017 13:44
--- NOTE | 2017-04-26 15:00 | PD.CONS ---
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 staff as well as the review of records all occurred today. I also attest that the listed assessment and stated plan reflect my best clinical judgment today based on the combination of historical information, prior notes, and today's exam/ interactions. When time spent is documented, it refers only to time spent today by the signer, or if indicated, combined time spent today by collaborating physician/nurse practitioner. Soheila Brewer Apr 26, 2017 15:00
--- NOTE | 2017-04-26 16:11 | EKG ---
Date Performed: 04/25/2017 Time Performed: 14:07:44 PTAGE: 66 years EKG: Atrial flutter with 2:1 block MODERATE INTRAVENTRICULAR CONDUCTION DELAY ST DEVIATION AND M ODERATE T-WAVE ABNORMALITY, CONSIDER ANTEROLATERAL ISCHEMIA ST DEVIATION AND MODERATE T-WAVE ABNORMAL ITY, CONSIDER INFERIOR ISCHEMIA Compared to previous tracing, atrial flutter has replaced Sinus rhyth m . ABNORMAL ECG PREVIOUS TRACING : 11/28/2016 13.59 DOCTOR: Gene Lima Interpretating Date/Time 04/26/2017 16:09:21
[2017-04-26] MEDS: DIGOXIN 0.5 MG/2 ML VIAL IV PUSH SCH (21:29)
[2017-04-27] VITALS (18 sets, daily range): BP systolic 96–144; BP diastolic 64–83; PULSE 82–132; RESP 19–31; TEMP 97.5–98; O2SAT 78–100
[2017-04-27] MEDS: CHLORHEXIDINE GLUCONATE 2 % 1 PACK (2 CLOTHS) TOP SCH (00:40)
[2017-04-27] MEDS: CHLORHEXIDINE GLUCONATE 2 % 1 PACK (2 CLOTHS)(taper/protocol) TOPICAL SCH (00:40)
[2017-04-27] MEDS: CEFEPIME INJ 2,000 MG in SODIUM CHLORIDE 0.9% INJ 100 ML IV SCH ×2 (00:40→15:18)
[2017-04-27] MEDS: RESP: ALBUTEROL 2.5 MG/IPRATROPIUM 0.5 MG NEB (SCH) INH ×4 (04:08→19:38)
[2017-04-27] MEDS: LEVOTHYROXINE SODIUM 125 MCG TAB PO SCH (05:24)
[2017-04-27 05:54] LABS: AUTOMATED NEUTROPHIL # 4.7 TH/MM3 (1.8-7.7); BASOPHIL % 0.2 % (0.0-2.0); EOSINOPHIL # 0.1 TH/MM3 (0-0.4); EOSINOPHIL % 0.9 % (0.0-4.0); HEMATOCRIT 51.6 % (39.0-51.0); HEMO FLAGS DIFF FINAL; LYMPHOCYTE # 0.9 TH/MM3 (1.0-4.8); MEAN CELL VOLUME 101.3 FL (80.0-100.0); MEAN CORPUSCULAR HEMOGLOBIN 33.3 PG (27.0-34.0); MEAN CORPUSCULAR HGB CONC 32.9 % (32.0-36.0); MONO % 13.2 % (0.0-8.0); NEUT % 71.7 % (16.0-70.0); PLATELET COUNT 134 TH/MM3 (150-450); RED BLOOD COUNT 5.09 MIL/MM3 (4.50-5.90); RED CELL DISTRIBUTION WIDTH 15.1 % (11.6-17.2); WHITE BLOOD COUNT 6.5 TH/MM3 (4.0-11.0)
[2017-04-27 06:23] LABS: ALKALINE PHOSPHATASE 73 U/L (45-117); ALT (GPT) 694 U/L (12-78); ANION GAP 9 MEQ/L (5-15); AST (GOT) 494 U/L (15-37); BICARBONATE 26.4 MEQ/L (21.0-32.0); BLOOD UREA NITROGEN 85 MG/DL (7-18); CHLORIDE 117 MEQ/L (98-107); DIGOXIN 1.5 NG/ML (0.8-2.0); GLOMERULAR FILTRATION RATE 62 ML/MIN (>89); POTASSIUM 3.8 MEQ/L (3.5-5.1); SODIUM (NA) 152 MEQ/L (136-145); TOTAL BILIRUBIN ADULT 3.6 MG/DL (0.2-1.0)
[2017-04-27] MEDS: DOCUSATE SODIUM 50 MG/SENNA 8.6 MG TAB PO SCH ×2 (09:00→20:25)
[2017-04-27] MEDS: PANTOPRAZOLE SODIUM 40 MG VIAL IV PUSH SCH (09:00)
[2017-04-27] MEDS: ASPIRIN 81 MG CHEW TAB CHEW SCH (09:00)
[2017-04-27] MEDS: DABIGATRAN ETEXILATE 150 MG CAP PO SCH ×2 (09:00→20:25)
[2017-04-27] MEDS: FLUTICASONE 100 MCG/VILANTEROL 25 MCG INHALER INH SCH (09:00)
[2017-04-27] MEDS: SODIUM CHLORIDE 0.9% FLUSH 10 ML FLUSH IV FLUSH SCH ×2 (09:00→20:25)
[2017-04-27] MEDS: DIGOXIN 0.5 MG/2 ML VIAL IV PUSH SCH (09:23)
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
--- NOTE | 2017-04-27 11:42 | HHI.HCPN ---
Reason for visit a. To assist with evaluation and management of symptoms including:chest pain , dyspnea, weakness, malnutrition b. To assist medical decision maker(s) with: better understanding of current medical conditions; weighing benefits/burdens of medical treatment options; making medical treatment decisions. Subjective/Interval History Pt seen today to follow up on comfort, goals. Pt stable in ICU, transfer to med/surg unit pending. Platelets downtrending 16- -> 149--> 134 today. BUN and creatinine 85/1.39 slightly improved. Total bilirubin trending down 3.6. Urine output adequate. LFTs trending down. Blood cultures from 04/25 no growth to date. Patient seen in room no visitors present. He is sleeping though arouses to my exam. Voice is still very hoarse, weak. Difficult to understand. He is oriented to self, hospital. Names the month as the 12th. When exploring why he is in the hospital he indicates because of his heart. He indicates that he wants to get out of here, and that he wants food. He endorses he continues to have intermittent chest pain, he feels like he is "going to ". When asked about dyspnea he neither denies nor endorses. Gently explore that he does have end-stage heart disease of which there are no further interventions available and that we are currently treating his cardiac condition with medications; that there are limitations in his advanced disease state. Other explore that he is expected to from his conditions he acknowledges this. Gently explore CPR and life support and that there is a possibility he could end up requiring those things--he indicates that if that happened he would want to "let me pass" . I explore that we would have the option in his condition to allow him to be comfortable and go home with his disease process and hospice services and to not continue to have hospitalizations, and that as his condition progressed he would be allowed to out of the hospital setting with comfort care in place. He tells me he wants some food and to go home. When I explore where home is he is not able to tell me where he was recently living but indicates it was not with his sister. Given his fluctuating mental status and not completely oriented and difficult to fully assess insight I would want to verify these/ any wishes with his designated healthcare surrogate sister whom I could not reach yesterday. --following exam attempted to reach sister Ms Givens unable to leave VM. Also tried to reach listed daughter, unable to leave voicemail on her cell number, otherwise her number is the same as Ms. Givens's number. Also attempted to reach listed son Karel no answer, voicemail left. Of note this patient was previously seen by palliative care July 2015-- during his third acute care hospitalization and a one-month time at that time. He was noted then to have significant ischemic cardiomyopathy with EF of 10%, and had a CODE BLUE event during that hospitalization he was eventually discharged to [facility] for further evaluation for LVAD and/or transplant however he was deemed not a candidate. He was then returned to [facility] at which point palliative care was consulted. At that time palliative provider notes he seemed to understand he had end-stage cardiac disease however was hopeful that he still had time remaining and was not interested in hospice services at that time. Advance Directives Living Will: Never completed Health Care Surrogate: Copy in medical record Advance Directive Specifics Date completed: July 2014 Health Care Surrogate(s): Sister Lashay Givens Objective Vital Signs Date Time Temp Pulse Resp B/P (MAP) Pulse Ox O2 Delivery O2 Flow Rate FiO2 04/27/17 10:30 123 24 99 04/27/17 10:00 116 04/27/17 10:00 127 26 104/70 (81) 99 04/27/17 09:30 132 29 04/27/17 09:00 132 31 99/73 (82) 100 04/27/17 08:30 132 28 78 04/27/17 08:20 98 Nasal Cannula 2.00 04/27/17 08:00 116 04/27/17 08:00 97.3 127 29 105/81 (89) 100 04/27/17 08:00 97.8 122 20 97 04/27/17 06:00 116 04/27/17 04:00 86 04/27/17 04:00 97.0 86 21 96/64 (75) 100 04/27/17 02:00 125 04/27/17 00:00 97.3 112 23 144/77 (99) 97 04/27/17 00:00 112 04/26/17 22:00 118 04/26/17 20:26 98 Nasal Cannula 2.00 04/26/17 20:00 96.6 70 22 101/65 (77) 100 04/26/17 20:00 70 04/26/17 16:00 97.8 68 24 107/63 (78) 98 04/26/17 16:00 69 04/26/17 14:00 69 04/26/17 12:00 68 04/26/17 12:00 97.5 67 24 97/67 (77) 98 Intake & Output 04/27/17 04/27/17 07:00 19:00 Intake Total 580 ml Output Total 300 ml Balance 280 ml Intake Oral 480 ml IV Total 100 ml Output Urine Total 300 ml # Bowel Movements 0 Physical Exam CONSTITUTIONAL/GENERAL: This is a frail, chronically ill appearing pt TUBES/LINES/DRAINS:PIV bilateral hands, NC O2, quezada catheter CARDIOVASCULAR:regular, atrial flutter observed on bedside monitor. Rate 120s No JVD. Peripheral pulses symmetric- pedal faint, feet cool RESPIRATORY/CHEST: Symmetric, unlabored respirations. ON 2 L NC . Clear to auscultation. Breath sounds equal bilaterally. GASTROINTESTINAL: Abdomen soft,flat , mildly tender mid upper, nondistended. No palpable masses. No guarding. Bowel sounds present. GENITOURINARY: Without palpable bladder distension. Quezada catheter in place. clear light yellow urine, some pink tinging today MUSCULOSKELETAL: Extremities without clubbing, cyanosis, or edema. No joint effusion noted. No calf tenderness. No mottling or clubbing. extremities very thin LYMPHATICS: No palpable cervical or supraclavicular adenopathy. NEUROLOGICAL: Awake and alert. oriented x2. Speech soft, very difficult to understand . Limited insight. Moves all 4 extremities-- follows commands. PSYCHIATRIC: No obvious anxiety/depression. . Diagnostic Tests Laboratory Laboratory Tests Test 04/25/17 14:20 04/25/17 14:25 04/25/17 14:35 04/25/17 18:55 White Blood Count 8.6 TH/MM3 (4.0-11.0) Red Blood Count 5.38 MIL/MM3 (4.50-5.90) Hemoglobin 18.0 GM/DL (13.0-17.0) Hematocrit 53.6 % (39.0-51.0) Mean Corpuscular Volume 99.6 FL (80.0-100.0) Mean Corpuscular Hemoglobin 33.4 PG (27.0-34.0) Mean Corpuscular Hemoglobin Concent 33.6 % (32.0-36.0) Red Cell Distribution Width 14.7 % (11.6-17.2) Platelet Count 166 TH/MM3 (150-450) Mean Platelet Volume 8.7 FL (7.0-11.0) Neutrophils (%) (Auto) 73.0 % (16.0-70.0) Lymphocytes (%) (Auto) 13.3 % (9.0-44.0) Monocytes (%) (Auto) 13.4 % (0.0-8.0) Eosinophils (%) (Auto) 0.1 % (0.0-4.0) Basophils (%) (Auto) 0.2 % (0.0-2.0) Neutrophils # (Auto) 6.3 TH/MM3 (1.8-7.7) Lymphocytes # (Auto) 1.1 TH/MM3 (1.0-4.8) Monocytes # (Auto) 1.2 TH/MM3 (0-0.9) Eosinophils # (Auto) 0.0 TH/MM3 (0-0.4) Basophils # (Auto) 0.0 TH/MM3 (0-0.2) CBC Comment DIFF FINAL Differential Comment Prothrombin Time 20.1 SEC (9.8-11.6) Prothromb Time International Ratio 1.8 RATIO Activated Partial Thromboplast Time 34.8 SEC (24.3-30.1) Blood Urea Nitrogen 105 MG/DL (7-18) Creatinine 1.81 MG/DL (0.60-1.30) Random Glucose 126 MG/DL (74-106) Total Protein 8.3 GM/DL (6.4-8.2) Albumin 3.4 GM/DL (3.4-5.0) Calcium Level 9.2 MG/DL (8.5-10.1) Alkaline Phosphatase 93 U/L (45-117) Aspartate Amino Transf (AST/SGOT) 1285 U/L (15-37) Alanine Aminotransferase (ALT/SGPT) 1153 U/L (12-78) Total Bilirubin 5.0 MG/DL (0.2-1.0) Sodium Level 141 MEQ/L (136-145) Potassium Level 3.6 MEQ/L (3.5-5.1) Chloride Level 106 MEQ/L (98-107) Carbon Dioxide Level 20.8 MEQ/L (21.0-32.0) Anion Gap 14 MEQ/L (5-15) Estimat Glomerular Filtration Rate 46 ML/MIN (>89) Serum Osmolality 324 MOSM/KG (275-295) Lactic Acid Level 2.3 mmol/L (0.4-2.0) 3.0 mmol/L (0.4-2.0) Total Creatine Kinase 2242 U/L (39-308) Creatine Kinase MB 12.4 NG/ML (0.5-3.6) Creatine Kinase MB % 0.6 % (0.0-4.0) Troponin I 0.72 NG/ML (0.02-0.05) B-Type Natriuretic Peptide GREATER THAN 5000 PG/ML Lipase 974 U/L (73-393) Salicylates Level LESS THAN 1.7 MG/DL Urine Opiates Screen NEG (NEG) Acetaminophen Level LESS THAN 2.0 MCG/ML Urine Barbiturates Screen NEG (NEG) Urine Amphetamines Screen NEG (NEG) Urine Benzodiazepines Screen NEG (NEG) Urine Cocaine Screen POS (NEG) Urine Cannabinoids Screen NEG (NEG) Ethyl Alcohol Level LESS THAN 3 MG/DL (0-5) Urine Color YELLOW (YELLW/STRAW) Urine Turbidity HAZY (CLEAR) Urine pH 5.5 (5.0-8.5) Urine Specific [place] 1.017 (1.002-1.035) Urine Protein 30 mg/dL (NEG-TRACE) Urine Glucose (UA) NEG mg/dL (NEG) Urine Ketones NEG mg/dL (NEG) Urine Occult Blood MOD (NEG) Urine Nitrite NEG (NEG) Urine Bilirubin NEG (NEG) Urine Urobilinogen LESS THAN 2.0 MG/DL (LESS Urine Leukocyte Esterase NEG (NEG) Urine RBC 1 /hpf (0-3) Urine WBC 2 /hpf (0-5) Urine Squamous Epithelial Cells 1 /hpf (0-5) Microscopic Urinalysis Comment CULT NOT INDICATED Blood Gas Puncture Site RT FEMORAL Blood Gas Patient Temperature 98.6 Blood Gas HCO3 22 mmol/L (22-26) Blood Gas Base Excess -1.5 mmol/L (-2-2) Blood Gas Oxygen Saturation 93 % (90-100) Arterial Blood pH 7.47 (7.380-7.420) Arterial Blood Partial Pressure CO2 30 mmHg (38-42) Arterial Blood Partial Pressure O2 79 mmHG (61-120) Arterial Blood Oxygen Content 21.1 Vol % (12.0-20.0) Arterial Blood Carboxyhemoglobin 1.1 % (0-4) Arterial Blood Methemoglobin 0.5 % (0-2) Blood Gas Hemoglobin 16.1 G/DL (12.0-16.0) Oxygen Delivery Device NASAL CANNULA Blood Gas Liter Flow 4 L/M Test 04/25/17 22:00 04/26/17 04:27 04/26/17 04:28 04/26/17 04:55 Nasal Screen MRSA (PCR) MRSA NOT DETECTED (NOT Ammonia LESS THAN 10 MCMOL/L Blood Urea Nitrogen 98 MG/DL (7-18) Creatinine 1.76 MG/DL (0.60-1.30) Random Glucose 118 MG/DL (74-106) Total Protein 8.4 GM/DL (6.4-8.2) Albumin 3.1 GM/DL (3.4-5.0) Calcium Level 8.2 MG/DL (8.5-10.1) Phosphorus Level 2.9 MG/DL (2.5-4.9) Magnesium Level 3.6 MG/DL (1.5-2.5) Alkaline Phosphatase 87 U/L (45-117) Aspartate Amino Transf (AST/SGOT) 937 U/L (15-37) Alanine Aminotransferase (ALT/SGPT) 1011 U/L (12-78) Total Bilirubin 5.1 MG/DL (0.2-1.0) Sodium Level 145 MEQ/L (136-145) Potassium Level 3.9 MEQ/L (3.5-5.1) Chloride Level 112 MEQ/L (98-107) Carbon Dioxide Level 21.6 MEQ/L (21.0-32.0) Anion Gap 11 MEQ/L (5-15) Estimat Glomerular Filtration Rate 47 ML/MIN (>89) Troponin I 0.66 NG/ML (0.02-0.05) Lipase 1398 U/L (73-393) Thyroid Stimulating Hormone 3rd Gen 6.450 uIU/ML (0.358-3.740) Hepatitis A IgM Antibody NEGATIVE (NEGATIVE) Hepatitis B Surface Antigen NEGATIVE (NEGATIVE) Hepatitis B Core IgM Antibody NEGATIVE (NEGATIVE) Hepatitis C Antibody REACTIVE (NEGATIVE) White Blood Count 7.0 TH/MM3 (4.0-11.0) Red Blood Count 5.20 MIL/MM3 (4.50-5.90) Hemoglobin 17.1 GM/DL (13.0-17.0) Hematocrit 52.5 % (39.0-51.0) Mean Corpuscular Volume 100.9 FL (80.0-100.0) Mean Corpuscular Hemoglobin 32.9 PG (27.0-34.0) Mean Corpuscular Hemoglobin Concent 32.6 % (32.0-36.0) Red Cell Distribution Width 14.9 % (11.6-17.2) Platelet Count 149 TH/MM3 (150-450) Mean Platelet Volume 8.6 FL (7.0-11.0) Neutrophils (%) (Auto) 72.8 % (16.0-70.0) Lymphocytes (%) (Auto) 12.4 % (9.0-44.0) Monocytes (%) (Auto) 14.4 % (0.0-8.0) Eosinophils (%) (Auto) 0.3 % (0.0-4.0) Basophils (%) (Auto) 0.1 % (0.0-2.0) Neutrophils # (Auto) 5.1 TH/MM3 (1.8-7.7) Lymphocytes # (Auto) 0.9 TH/MM3 (1.0-4.8) Monocytes # (Auto) 1.0 TH/MM3 (0-0.9) Eosinophils # (Auto) 0.0 TH/MM3 (0-0.4) Basophils # (Auto) 0.0 TH/MM3 (0-0.2) CBC Comment DIFF FINAL Differential Comment Lactic Acid Level 2.2 mmol/L (0.4-2.0) Test 04/27/17 04:22 White Blood Count 6.5 TH/MM3 (4.0-11.0) Red Blood Count 5.09 MIL/MM3 (4.50-5.90) Hemoglobin 17.0 GM/DL (13.0-17.0) Hematocrit 51.6 % (39.0-51.0) Mean Corpuscular Volume 101.3 FL (80.0-100.0) Mean Corpuscular Hemoglobin 33.3 PG (27.0-34.0) Mean Corpuscular Hemoglobin Concent 32.9 % (32.0-36.0) Red Cell Distribution Width 15.1 % (11.6-17.2) Platelet Count 134 TH/MM3 (150-450) Mean Platelet Volume 8.7 FL (7.0-11.0) Neutrophils (%) (Auto) 71.7 % (16.0-70.0) Lymphocytes (%) (Auto) 14.0 % (9.0-44.0) Monocytes (%) (Auto) 13.2 % (0.0-8.0) Eosinophils (%) (Auto) 0.9 % (0.0-4.0) Basophils (%) (Auto) 0.2 % (0.0-2.0) Neutrophils # (Auto) 4.7 TH/MM3 (1.8-7.7) Lymphocytes # (Auto) 0.9 TH/MM3 (1.0-4.8) Monocytes # (Auto) 0.9 TH/MM3 (0-0.9) Eosinophils # (Auto) 0.1 TH/MM3 (0-0.4) Basophils # (Auto) 0.0 TH/MM3 (0-0.2) CBC Comment DIFF FINAL Differential Comment Blood Urea Nitrogen 85 MG/DL (7-18) Creatinine 1.39 MG/DL (0.60-1.30) Random Glucose 83 MG/DL (74-106) Total Protein 7.2 GM/DL (6.4-8.2) Albumin 2.7 GM/DL (3.4-5.0) Calcium Level 8.6 MG/DL (8.5-10.1) Alkaline Phosphatase 73 U/L (45-117) Aspartate Amino Transf (AST/SGOT) 494 U/L (15-37) Alanine Aminotransferase (ALT/SGPT) 694 U/L (12-78) Total Bilirubin 3.6 MG/DL (0.2-1.0) Sodium Level 152 MEQ/L (136-145) Potassium Level 3.8 MEQ/L (3.5-5.1) Chloride Level 117 MEQ/L (98-107) Carbon Dioxide Level 26.4 MEQ/L (21.0-32.0) Anion Gap 9 MEQ/L (5-15) Estimat Glomerular Filtration Rate 62 ML/MIN (>89) Lipase 1331 U/L (73-393) Digoxin Level 1.5 NG/ML (0.8-2.0) Result Diagram: 04/27/1742104/27/17421 Microbiology Microbiology Date/Time Source Procedure Growth Status 04/25/17 14:25 Blood Peripheral Aerobic Blood Culture - Preliminary NO GROWTH IN 2 DAYS Resulted 04/25/17 14:25 Blood Peripheral Anaerobic Blood Culture - Preliminary NO GROWTH IN 2 DAYS Resulted 04/25/17 14:20 Blood Peripheral Aerobic Blood Culture - Preliminary NO GROWTH IN 2 DAYS Resulted 04/25/17 14:20 Blood Peripheral Anaerobic Blood Culture - Preliminary NO GROWTH IN 2 DAYS Resulted Imaging Last Impressions Lower Extremity Ultrasound 04/26/17 Signed Impressions: Service Date/Time: Wednesday, April 26, 2017 08:27 - CONCLUSION: Venous Doppler positive both legs. Frank Desir MD FACR Liver Ultrasound 04/26/17 Signed Impressions: Service Date/Time: Wednesday, April 26, 2017 08:07 - CONCLUSION: 1. Minimally enlarged mildly hyperechoic liver consistent with hepatic steatosis or medical liver disease. 2. Trace gallbladder sludge. Otherwise, no sonographic evidence for acute cholecystitis. 3. Stable 6.5 cm simple appearing cyst in the inferior pole of the right kidney. However, there is a 1.2 cm hyperechoic lesion adjacent to this cyst which is disparate in size in comparison to 2 mm calcified calculus noted on recent CT exam. Suspect this reflects a portion of the renal sinus fat. However, differential considerations include small cyst wall nodule versus small angiomyolipoma. Further characterization may be performed on an outpatient basis with renal mass CT or MRI examination if there is continued clinical concern. Afshin Freeman MD Chest X-Ray 04/26/17 Signed Impressions: Service Date/Time: Wednesday, April 26, 2017 03:43 - CONCLUSION: Stable chest Martir Gauthier MD Head CT 04/25/17 1415 Signed Impressions: Service Date/Time: Tuesday, April 25, 2017 15:26 - CONCLUSION: Old strokes and chronic white matter changes. Martir Gauthier MD Abdomen/Pelvis CT 04/25/17 Signed Impressions: Service Date/Time: Tuesday, April 25, 2017 15:34 - CONCLUSION: 1. Atherosclerosis. 2. Right renal cyst and right lower pole nonobstructing renal calculus. 3. No inflammatory changes are seen. Archie Oshea MD Assessment and Plan Disease Oriented Problem List: (1) CHF (congestive heart failure) Comment: Chronic systolic, EF 10-15 % (2) Atrial flutter with rapid ventricular response (3) CVA (cerebrovascular accident) (4) S/P CABG x 3 (5) MATTHEW (acute kidney injury) (6) Transaminitis (7) CAD (coronary artery disease) (8) History of cocaine abuse (9) Ischemic cardiomyopathy (10) Seizure disorder (11) Hypertension (12) Hypothyroidism (13) GERD (gastroesophageal reflux disease) (14) Hepatitis C (15) Non-Hodgkin lymphoma Symptom Scale: (1) Dyspnea (2) Chest pain (3) Weakness (4) Malnutrition Pertinent Non-Medical Issues Psychosocial:Per prior palliative care H&P: Is originally from [place]. Moved to [facility] around the age of 12. 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 On disability as of 2016 palliative consult. . Previously was living with a girlfriend who assisted to care for him. Has 1 son , 1 daughter. His sister is healthcare surrogate. Spiritual:Member of [employer] Legal:Patient does not currently appear capacitated to make his medical decisions. He may possibly regain capacity. He does have healthcare surrogate designating his sister. Ethical issues impacting care: no ethical issues identified at this time Important Contacts Lashay Givens (sister and health care surrogate) [phone] Alisha Cruz, daughter: [phone] Karel, son: [phone] . Prognosis This patient has end-stage ischemic cardiomyopathy. He has had multiple hospitalizations secondary to this. He is not a candidate for LVAD or transplant, has been previously evaluated at [facility]. Cardiology has previously recommended hospice. He will continue to experience complications secondary to his disease process, and recurrent hospitalizations. He is appropriate for hospice if goals compatible . Code Status: Full Code Plan * Legal decision maker:Patient does not currently appear capacitated to make his medical decisions. He may possibly regain capacity. He does have healthcare surrogate designating his sister. * Goals: limited discussion w / pt, he has limited/poor insight, partially oriented. Voice is weak/hoarse and is difficult to understand. He mainly c/o wanting to eat. He does today verbalize that he would not want CPR and would want us to "let me pass"; however given his fluctuating mental status/limited insight I would want to verify this and any other decisions with appropriate designated surrogate. Attempted to reach his sister Lashay, the VM was full I was unable to leave message. Attempted to reach daughter I was unable to leave message. Attempted to reach a listed son I did leave a voicemail. * CODE STATUS: full * SYMPTOMS: --dyspnea- h/o COPD, tachypnea during current admission- subjectively denies dyspnea today. risk for 2/2 ES heart failure . breathing comfortably on NC. on scheduled albuterol nebulizers --chest pain - intermittent CP. Hx ES systolic heart failure, + cocaine use . has morphine 2mg IV prn, has not required, will cont to evaluate -- weakness - very weak, deconditioned. 2/2 ES heart disease, deconditioning. -- malnutrition- albumin 3.1. current weight 64.5kg . prior admissions in the past few years weights 72-75kg. +/- 10 kg weight loss in couple years. unable to describe his appetite or intake. may benefit from nutritional supplement. He primarily complains of being hungry; he is ordered for a heart healthy diet. * Palliative care will continue to follow during hospital course as condition evolves, to assist patient/decision-maker with understanding of medical conditions, weighing benefits/burdens of treatment options, for clarification of goals of treatment. Additionally will assist with any symptoms of palliative concern . Attestation To help prompt me to consider important information that might be impacting today's encounter and assessment, information from prior notes written by myself or my colleagues may have been "brought forward" into today's note. My signature on this note, however, is an attestation that I personally performed the exam, history, and/or decision-making noted today, and, unless otherwise indicated, the interactions with patient, family, and staff as well as the review of records all occurred today. I also attest that the listed assessment and stated plan reflect my best clinical judgment today based on the combination of historical information, prior notes, and today's exam/ interactions. When time spent is documented, it refers only to time spent today by the signer, or if indicated, combined time spent today by collaborating physician/nurse practitioner. Soheila Brewer Apr 27, 2017 11:42
[2017-04-27] MEDS: CARVEDILOL 3.125 MG TAB PO SCH ×2 (14:00→20:25)
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
[2017-04-28] VITALS (16 sets, daily range): BP systolic 89–105; BP diastolic 55–66; PULSE 66–111; RESP 9–31; TEMP 97.5–98; O2SAT 94–100
[2017-04-28] MEDS: CEFEPIME INJ 2,000 MG in SODIUM CHLORIDE 0.9% INJ 100 ML IV SCH (01:03)
[2017-04-28] MEDS: CHLORHEXIDINE GLUCONATE 2 % 1 PACK (2 CLOTHS) TOP SCH (01:03)
[2017-04-28] MEDS: CHLORHEXIDINE GLUCONATE 2 % 1 PACK (2 CLOTHS)(taper/protocol) TOPICAL SCH (02:43)
[2017-04-28] MEDS: RESP: ALBUTEROL 2.5 MG/IPRATROPIUM 0.5 MG NEB (SCH) INH ×4 (03:22→21:04)
[2017-04-28] MEDS: LEVOTHYROXINE SODIUM 125 MCG TAB PO SCH (05:02)
[2017-04-28] MEDS: FLUTICASONE 100 MCG/VILANTEROL 25 MCG INHALER INH SCH (09:00)
[2017-04-28] MEDS: ASPIRIN 81 MG CHEW TAB CHEW SCH (09:09)
[2017-04-28] MEDS: SODIUM CHLORIDE 0.9% FLUSH 10 ML FLUSH IV FLUSH SCH ×2 (09:10→20:30)
[2017-04-28] MEDS: CARVEDILOL 3.125 MG TAB PO SCH ×2 (09:10→21:22)
[2017-04-28] MEDS: DOCUSATE SODIUM 50 MG/SENNA 8.6 MG TAB PO SCH ×2 (09:10→20:32)
[2017-04-28] MEDS: PANTOPRAZOLE SODIUM 40 MG VIAL IV PUSH SCH (09:10)
[2017-04-28] MEDS: DABIGATRAN ETEXILATE 150 MG CAP PO SCH ×2 (09:10→20:30)
[2017-04-28] MEDS: DIGOXIN 0.5 MG/2 ML VIAL IV PUSH SCH (09:10)
[2017-04-28] MEDS: MORPHINE SULFATE 4 MG/ML INJ IV PUSH PRN (09:15)
--- NOTE | 2017-04-28 10:37 | HHI.HCPN ---
Reason for visit a. To assist with evaluation and management of symptoms including:chest pain , dyspnea, weakness, malnutrition b. To assist medical decision maker(s) with: better understanding of current medical conditions; weighing benefits/burdens of medical treatment options; making medical treatment decisions. Subjective/Interval History Patient seen today for follow up regarding goals of care. Patient was stable to transfer out of the ICU yesterday morning, however he experienced 2 episodes of wide complex tachycardia, cardiology was consulted to evaluate the patient, medications were reviewed and adjusted. Due to the complex nature of Mr. Walker's comorbidities as well as his long standing crack cocaine use there are limited treatment options available. Patient evaluated in room, no family or visitors at bedside. Patient is drowsy, oriented to person and to place, he is unable to recount the reason for this hospitalization. He is able to confirm that he is aware of his heart failure, his evaluation at [facility] in the previous year, and that there are limited treatment options available. Discussed with patient the risks, benefits and limitations of CPR, when discussing his code status patient became guarded, closed his eyes, and minimally engaged in conversation, he did endorse that he would like to remain a full code, and he would want CPR if necessary as well as mechanical ventilation. The patient has a delay in his response to questions and seems slow to process information. He appears to lack insight into the severity of his end stage heart disease. He does not appear to be fully capable of making independent decisions informatively/safely on his own at this time. Ongoing efforts to contact his sister Lashay (ALPHONSO) are underway, suggest supported decision making at this time. Of note this patient was previously seen by palliative care July 2015-- during his third acute care hospitalization and a one-month time at that time. He was noted then to have significant ischemic cardiomyopathy with EF of 10%, and had a CODE BLUE event during that hospitalization he was eventually discharged to [facility] for further evaluation for LVAD and/or transplant however he was deemed not a candidate. He was then returned to [place] at which point palliative care was consulted. At that time palliative provider notes he seemed to understand he had end-stage cardiac disease however was hopeful that he still had time remaining and was not interested in hospice services at that time. Family/friend interactions Called patient's sister Lashay Givens, phone went straight to voicemail and voicemail is full, unable to leave message. Phone number for patient's daughter Alisha Cruz rings and does not have the availability to leave a message. Phone number for patient's son Karel [phone], is no longer his number and he can not be reached via this number. 04/28 @ 1106: Located contact information for patient's sister Cortney Travis, updated on patient's current clinical status. Awaiting return phone call to confirm meeting face to face with her and patient's fiance present. Advance Directives Living Will: Never completed Health Care Surrogate: Copy in medical record Advance Directive Specifics Date completed: July 2014 Health Care Surrogate(s): Sister Lashay Givens Objective Vital Signs Date Time Temp Pulse Resp B/P (MAP) Pulse Ox O2 Delivery O2 Flow Rate FiO2 04/28/17 09:20 18 04/28/17 07:38 100 Nasal Cannula 2.00 04/28/17 06:00 67 04/28/17 04:00 97.5 83 22 104/66 (79) 100 04/28/17 04:00 83 04/28/17 02:00 76 04/28/17 00:00 97.7 85 28 90/57 (68) 100 04/28/17 00:00 85 04/27/17 22:00 82 04/27/17 20:00 131 04/27/17 20:00 97.5 131 19 108/83 (91) 100 04/27/17 19:36 100 Nasal Cannula 2.00 04/27/17 18:00 116 04/27/17 16:00 98.0 118 24 115/64 (81) 99 04/27/17 16:00 116 04/27/17 14:00 116 04/27/17 12:00 97.8 112 24 130/78 (95) 99 04/27/17 12:00 116 04/27/17 10:30 123 24 99 Intake & Output 04/28/17 04/28/17 06:59 18:59 Intake Total 920 ml Output Total 325 ml Balance 595 ml Intake Oral 720 ml IV Total 200 ml Output Urine Total 325 ml # Bowel Movements 0 . Physical Exam CONSTITUTIONAL/GENERAL: This is a frail, chronically ill appearing patient TUBES/LINES/DRAINS:PIV bilateral hands, NC O2, quezada catheter CARDIOVASCULAR: Regular, atrial flutter observed on bedside monitor. No JVD. Peripheral pulses symmetric- pedal faint, feet cool RESPIRATORY/CHEST: Symmetric, unlabored respirations. ON 2 L NC . Clear to auscultation. Breath sounds equal bilaterally. GASTROINTESTINAL: Abdomen soft, flat, mildly tender mid upper, nondistended. No palpable masses. No guarding. Bowel sounds present. GENITOURINARY: Without palpable bladder distension. Quezada catheter in place. MUSCULOSKELETAL: Extremities without clubbing, cyanosis, or edema. No mottling or clubbing. extremities very thin NEUROLOGICAL: Awake and alert. oriented x2. Speech soft, very difficult to understand, slow to find words/respond. Limited insight. Moves all 4 extremities-- follows commands. PSYCHIATRIC: No obvious anxiety/depression. . Diagnostic Tests Laboratory Laboratory Tests Test 04/25/17 14:20 04/25/17 14:25 04/25/17 14:35 04/25/17 18:55 White Blood Count 8.6 TH/MM3 (4.0-11.0) Red Blood Count 5.38 MIL/MM3 (4.50-5.90) Hemoglobin 18.0 GM/DL (13.0-17.0) Hematocrit 53.6 % (39.0-51.0) Mean Corpuscular Volume 99.6 FL (80.0-100.0) Mean Corpuscular Hemoglobin 33.4 PG (27.0-34.0) Mean Corpuscular Hemoglobin Concent 33.6 % (32.0-36.0) Red Cell Distribution Width 14.7 % (11.6-17.2) Platelet Count 166 TH/MM3 (150-450) Mean Platelet Volume 8.7 FL (7.0-11.0) Neutrophils (%) (Auto) 73.0 % (16.0-70.0) Lymphocytes (%) (Auto) 13.3 % (9.0-44.0) Monocytes (%) (Auto) 13.4 % (0.0-8.0) Eosinophils (%) (Auto) 0.1 % (0.0-4.0) Basophils (%) (Auto) 0.2 % (0.0-2.0) Neutrophils # (Auto) 6.3 TH/MM3 (1.8-7.7) Lymphocytes # (Auto) 1.1 TH/MM3 (1.0-4.8) Monocytes # (Auto) 1.2 TH/MM3 (0-0.9) Eosinophils # (Auto) 0.0 TH/MM3 (0-0.4) Basophils # (Auto) 0.0 TH/MM3 (0-0.2) CBC Comment DIFF FINAL Differential Comment Prothrombin Time 20.1 SEC (9.8-11.6) Prothromb Time International Ratio 1.8 RATIO Activated Partial Thromboplast Time 34.8 SEC (24.3-30.1) Blood Urea Nitrogen 105 MG/DL (7-18) Creatinine 1.81 MG/DL (0.60-1.30) Random Glucose 126 MG/DL (74-106) Total Protein 8.3 GM/DL (6.4-8.2) Albumin 3.4 GM/DL (3.4-5.0) Calcium Level 9.2 MG/DL (8.5-10.1) Alkaline Phosphatase 93 U/L (45-117) Aspartate Amino Transf (AST/SGOT) 1285 U/L (15-37) Alanine Aminotransferase (ALT/SGPT) 1153 U/L (12-78) Total Bilirubin 5.0 MG/DL (0.2-1.0) Sodium Level 141 MEQ/L (136-145) Potassium Level 3.6 MEQ/L (3.5-5.1) Chloride Level 106 MEQ/L (98-107) Carbon Dioxide Level 20.8 MEQ/L (21.0-32.0) Anion Gap 14 MEQ/L (5-15) Estimat Glomerular Filtration Rate 46 ML/MIN (>89) Serum Osmolality 324 MOSM/KG (275-295) Lactic Acid Level 2.3 mmol/L (0.4-2.0) 3.0 mmol/L (0.4-2.0) Total Creatine Kinase 2242 U/L (39-308) Creatine Kinase MB 12.4 NG/ML (0.5-3.6) Creatine Kinase MB % 0.6 % (0.0-4.0) Troponin I 0.72 NG/ML (0.02-0.05) B-Type Natriuretic Peptide GREATER THAN 5000 PG/ML Lipase 974 U/L (73-393) Salicylates Level LESS THAN 1.7 MG/DL Urine Opiates Screen NEG (NEG) Acetaminophen Level LESS THAN 2.0 MCG/ML Urine Barbiturates Screen NEG (NEG) Urine Amphetamines Screen NEG (NEG) Urine Benzodiazepines Screen NEG (NEG) Urine Cocaine Screen POS (NEG) Urine Cannabinoids Screen NEG (NEG) Ethyl Alcohol Level LESS THAN 3 MG/DL (0-5) Urine Color YELLOW (YELLW/STRAW) Urine Turbidity HAZY (CLEAR) Urine pH 5.5 (5.0-8.5) Urine Specific [place] 1.017 (1.002-1.035) Urine Protein 30 mg/dL (NEG-TRACE) Urine Glucose (UA) NEG mg/dL (NEG) Urine Ketones NEG mg/dL (NEG) Urine Occult Blood MOD (NEG) Urine Nitrite NEG (NEG) Urine Bilirubin NEG (NEG) Urine Urobilinogen LESS THAN 2.0 MG/DL (LESS Urine Leukocyte Esterase NEG (NEG) Urine RBC 1 /hpf (0-3) Urine WBC 2 /hpf (0-5) Urine Squamous Epithelial Cells 1 /hpf (0-5) Microscopic Urinalysis Comment CULT NOT INDICATED Blood Gas Puncture Site RT FEMORAL Blood Gas Patient Temperature 98.6 Blood Gas HCO3 22 mmol/L (22-26) Blood Gas Base Excess -1.5 mmol/L (-2-2) Blood Gas Oxygen Saturation 93 % (90-100) Arterial Blood pH 7.47 (7.380-7.420) Arterial Blood Partial Pressure CO2 30 mmHg (38-42) Arterial Blood Partial Pressure O2 79 mmHG (61-120) Arterial Blood Oxygen Content 21.1 Vol % (12.0-20.0) Arterial Blood Carboxyhemoglobin 1.1 % (0-4) Arterial Blood Methemoglobin 0.5 % (0-2) Blood Gas Hemoglobin 16.1 G/DL (12.0-16.0) Oxygen Delivery Device NASAL CANNULA Blood Gas Liter Flow 4 L/M Test 04/25/17 22:00 04/26/17 04:27 04/26/17 04:28 04/26/17 04:55 Nasal Screen MRSA (PCR) MRSA NOT DETECTED (NOT Ammonia LESS THAN 10 MCMOL/L Blood Urea Nitrogen 98 MG/DL (7-18) Creatinine 1.76 MG/DL (0.60-1.30) Random Glucose 118 MG/DL (74-106) Total Protein 8.4 GM/DL (6.4-8.2) Albumin 3.1 GM/DL (3.4-5.0) Calcium Level 8.2 MG/DL (8.5-10.1) Phosphorus Level 2.9 MG/DL (2.5-4.9) Magnesium Level 3.6 MG/DL (1.5-2.5) Alkaline Phosphatase 87 U/L (45-117) Aspartate Amino Transf (AST/SGOT) 937 U/L (15-37) Alanine Aminotransferase (ALT/SGPT) 1011 U/L (12-78) Total Bilirubin 5.1 MG/DL (0.2-1.0) Sodium Level 145 MEQ/L (136-145) Potassium Level 3.9 MEQ/L (3.5-5.1) Chloride Level 112 MEQ/L (98-107) Carbon Dioxide Level 21.6 MEQ/L (21.0-32.0) Anion Gap 11 MEQ/L (5-15) Estimat Glomerular Filtration Rate 47 ML/MIN (>89) Troponin I 0.66 NG/ML (0.02-0.05) Lipase 1398 U/L (73-393) Thyroid Stimulating Hormone 3rd Gen 6.450 uIU/ML (0.358-3.740) Hepatitis A IgM Antibody NEGATIVE (NEGATIVE) Hepatitis B Surface Antigen NEGATIVE (NEGATIVE) Hepatitis B Core IgM Antibody NEGATIVE (NEGATIVE) Hepatitis C Antibody REACTIVE (NEGATIVE) White Blood Count 7.0 TH/MM3 (4.0-11.0) Red Blood Count 5.20 MIL/MM3 (4.50-5.90) Hemoglobin 17.1 GM/DL (13.0-17.0) Hematocrit 52.5 % (39.0-51.0) Mean Corpuscular Volume 100.9 FL (80.0-100.0) Mean Corpuscular Hemoglobin 32.9 PG (27.0-34.0) Mean Corpuscular Hemoglobin Concent 32.6 % (32.0-36.0) Red Cell Distribution Width 14.9 % (11.6-17.2) Platelet Count 149 TH/MM3 (150-450) Mean Platelet Volume 8.6 FL (7.0-11.0) Neutrophils (%) (Auto) 72.8 % (16.0-70.0) Lymphocytes (%) (Auto) 12.4 % (9.0-44.0) Monocytes (%) (Auto) 14.4 % (0.0-8.0) Eosinophils (%) (Auto) 0.3 % (0.0-4.0) Basophils (%) (Auto) 0.1 % (0.0-2.0) Neutrophils # (Auto) 5.1 TH/MM3 (1.8-7.7) Lymphocytes # (Auto) 0.9 TH/MM3 (1.0-4.8) Monocytes # (Auto) 1.0 TH/MM3 (0-0.9) Eosinophils # (Auto) 0.0 TH/MM3 (0-0.4) Basophils # (Auto) 0.0 TH/MM3 (0-0.2) CBC Comment DIFF FINAL Differential Comment Lactic Acid Level 2.2 mmol/L (0.4-2.0) Test 04/27/17 04:22 White Blood Count 6.5 TH/MM3 (4.0-11.0) Red Blood Count 5.09 MIL/MM3 (4.50-5.90) Hemoglobin 17.0 GM/DL (13.0-17.0) Hematocrit 51.6 % (39.0-51.0) Mean Corpuscular Volume 101.3 FL (80.0-100.0) Mean Corpuscular Hemoglobin 33.3 PG (27.0-34.0) Mean Corpuscular Hemoglobin Concent 32.9 % (32.0-36.0) Red Cell Distribution Width 15.1 % (11.6-17.2) Platelet Count 134 TH/MM3 (150-450) Mean Platelet Volume 8.7 FL (7.0-11.0) Neutrophils (%) (Auto) 71.7 % (16.0-70.0) Lymphocytes (%) (Auto) 14.0 % (9.0-44.0) Monocytes (%) (Auto) 13.2 % (0.0-8.0) Eosinophils (%) (Auto) 0.9 % (0.0-4.0) Basophils (%) (Auto) 0.2 % (0.0-2.0) Neutrophils # (Auto) 4.7 TH/MM3 (1.8-7.7) Lymphocytes # (Auto) 0.9 TH/MM3 (1.0-4.8) Monocytes # (Auto) 0.9 TH/MM3 (0-0.9) Eosinophils # (Auto) 0.1 TH/MM3 (0-0.4) Basophils # (Auto) 0.0 TH/MM3 (0-0.2) CBC Comment DIFF FINAL Differential Comment Blood Urea Nitrogen 85 MG/DL (7-18) Creatinine 1.39 MG/DL (0.60-1.30) Random Glucose 83 MG/DL (74-106) Total Protein 7.2 GM/DL (6.4-8.2) Albumin 2.7 GM/DL (3.4-5.0) Calcium Level 8.6 MG/DL (8.5-10.1) Alkaline Phosphatase 73 U/L (45-117) Aspartate Amino Transf (AST/SGOT) 494 U/L (15-37) Alanine Aminotransferase (ALT/SGPT) 694 U/L (12-78) Total Bilirubin 3.6 MG/DL (0.2-1.0) Sodium Level 152 MEQ/L (136-145) Potassium Level 3.8 MEQ/L (3.5-5.1) Chloride Level 117 MEQ/L (98-107) Carbon Dioxide Level 26.4 MEQ/L (21.0-32.0) Anion Gap 9 MEQ/L (5-15) Estimat Glomerular Filtration Rate 62 ML/MIN (>89) Lipase 1331 U/L (73-393) Digoxin Level 1.5 NG/ML (0.8-2.0) . Result Diagram: 04/27/1742104/27/17421 Microbiology Microbiology Date/Time Source Procedure Growth Status 04/25/17 14:25 Blood Peripheral Aerobic Blood Culture - Preliminary NO GROWTH IN 2 DAYS Resulted 04/25/17 14:25 Blood Peripheral Anaerobic Blood Culture - Preliminary NO GROWTH IN 2 DAYS Resulted 04/25/17 14:20 Blood Peripheral Aerobic Blood Culture - Preliminary NO GROWTH IN 2 DAYS Resulted 04/25/17 14:20 Blood Peripheral Anaerobic Blood Culture - Preliminary NO GROWTH IN 2 DAYS Resulted Imaging Last 72 hours Impressions Lower Extremity Ultrasound 04/26/17 Signed Impressions: Service Date/Time: Wednesday, April 26, 2017 08:27 - CONCLUSION: Venous Doppler positive both legs. Frank Desir MD FACR Liver Ultrasound 04/26/17 Signed Impressions: Service Date/Time: Wednesday, April 26, 2017 08:07 - CONCLUSION: 1. Minimally enlarged mildly hyperechoic liver consistent with hepatic steatosis or medical liver disease. 2. Trace gallbladder sludge. Otherwise, no sonographic evidence for acute cholecystitis. 3. Stable 6.5 cm simple appearing cyst in the inferior pole of the right kidney. However, there is a 1.2 cm hyperechoic lesion adjacent to this cyst which is disparate in size in comparison to 2 mm calcified calculus noted on recent CT exam. Suspect this reflects a portion of the renal sinus fat. However, differential considerations include small cyst wall nodule versus small angiomyolipoma. Further characterization may be performed on an outpatient basis with renal mass CT or MRI examination if there is continued clinical concern. Afshin Freeman MD Chest X-Ray 04/26/17 0000 Signed Impressions: Service Date/Time: Wednesday, April 26, 2017 03:43 - CONCLUSION: Stable chest Martir Gauthier MD Head CT 04/25/17 1415 Signed Impressions: Service Date/Time: Tuesday, April 25, 2017 15:26 - CONCLUSION: Old strokes and chronic white matter changes. Martir Gauthier MD Chest X-Ray 04/25/17 1415 Signed Impressions: Service Date/Time: Tuesday, April 25, 2017 14:43 - CONCLUSION: 1. Cardiomegaly without overt congestive failure. 2. Stable compared to previous study dated 09/09/15. Get Desir MD Assessment and Plan Disease Oriented Problem List: (1) CHF (congestive heart failure) Comment: Chronic systolic, EF 10-15 % (2) Atrial flutter with rapid ventricular response (3) CVA (cerebrovascular accident) (4) S/P CABG x 3 (5) MATTHEW (acute kidney injury) (6) Transaminitis (7) History of cocaine abuse (8) Ischemic cardiomyopathy (9) Seizure disorder (10) Hypertension (11) Hypothyroidism (12) GERD (gastroesophageal reflux disease) (13) Hepatitis C (14) Non-Hodgkin lymphoma Symptom Scale: (1) Dyspnea (2) Chest pain (3) Weakness (4) Malnutrition Pertinent Non-Medical Issues Psychosocial:Per prior palliative care H&P: Is originally from [place]. Moved to [facility] around the age of 12. 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 On disability as of 2016 palliative consult. . Previously was living with a girlfriend who assisted to care for him. Has 1 son , 1 daughter. His sister is healthcare surrogate. Spiritual:Member of [employer] Legal:Patient does not currently appear capacitated to make his medical decisions. He may possibly regain capacity. He does have healthcare surrogate designating his sister. Ethical issues impacting care: no ethical issues identified at this time Important Contacts Lashay Givens (sister and health care surrogate): [phone] (non- working number) :[phone] Cortney Travis (sister): [phone] Alisha Cruz, daughter: [phone] Karel, son: [phone] (not a working number, no longer his number) . Prognosis This patient has end-stage ischemic cardiomyopathy. He has had multiple hospitalizations secondary to this. He is not a candidate for LVAD or transplant, has been previously evaluated at [facility]. Cardiology has previously recommended hospice. He will continue to experience complications secondary to his disease process, and recurrent hospitalizations. He is appropriate for hospice if goals compatible . Code Status: Full Code Plan * Legal decision maker:Patient does not currently appear capacitated to make his medical decisions. He may possibly regain capacity. He does have healthcare surrogate designating his sister. * Goals: Again today discussion with patient was limited due to limited/poor insight, partially oriented. * Palliative care team is ensuring ongoing efforts are in place to speak with patient's sister Lashay who is also his health surrogate. Called patient's sister Lashay Givens, phone went straight to voicemail and voicemail is full, unable to leave message. Phone number for patient's daughter Alisha Cruz rings and does not have the availability to leave a message. Phone number for patient' s son Karel [phone], is no longer his number and he can not be reached via this number. * 04/28 @ 1106: Located contact information for patient's sister Cortney Travis, discussed and updated on patient's current clinical status. Cortney Travis indicates an understanding of Mr. Walker's end stage heart disease and is amenable to Hospice. Cortney Travis reported patient's other sister Lashay (his designated HCS) recently suffered from a fall, was recently hospitalized, and is unable to physically come to the hospital to meet. Attempted to call updated phone number provided for dalia Metz and palliative contact information provided. * Meeting set for Wednesday05/03/17 @ 1000 to discuss GOC and possible transition to comfort focused goals/Hospice. * CODE STATUS: FULL CODE. Discussed with patient the risks, benefits and limitations of CPR, when discussing his code status patient became guarded, closed his eyes, and minimally engaged in conversation, he did endorse that he would like to remain a full code, and he would want CPR if necessary as well as mechanical ventilation. Although he indicated yesterday to my colleague he would not want CPR. Again patient has limited insight and lacks the capacity to make informed decisions independently at this time. * SYMPTOMS: --dyspnea- h/o COPD, tachypnea during current admission- subjectively denies dyspnea today. Risk for 2/2 ES heart failure, breathing comfortably on NC. On scheduled albuterol nebulizers. --chest pain - intermittent CP. Hx ES systolic heart failure, + cocaine use. Patient has morphine 2mg IV PRN, he has not required. No recommendations at this time. -- weakness - Secondary to multiple comorbidities, deconditioning. Patient could benefit from PT/OT if goals remain aggressive. -- malnutrition- albumin 3.1. current weight 64.5kg . prior admissions in the past few years weights 72-75kg. +/- 10 kg weight loss in couple years. Unable to describe his appetite or intake. May benefit from nutritional supplement. * Palliative care will continue to follow during hospital course as condition evolves, to assist patient/decision-maker with understanding of medical conditions, weighing benefits/burdens of treatment options, for clarification of goals of treatment. Additionally will assist with any symptoms of palliative concern . Attestation To help prompt me to consider important information that might be impacting today's encounter and assessment, information from prior notes written by myself or my colleagues may have been "brought forward" into today's note. My signature on this note, however, is an attestation that I personally performed the exam, history, and/or decision-making noted today, and, unless otherwise indicated, the interactions with patient, family, and staff as well as the review of records all occurred today. I also attest that the listed assessment and stated plan reflect my best clinical judgment today based on the combination of historical information, prior notes, and today's exam/ interactions. When time spent is documented, it refers only to time spent today by the signer, or if indicated, combined time spent today by collaborating physician/nurse practitioner. Barbi Barkley Apr 28, 2017 10:37
--- NOTE | 2017-04-28 14:23 | PD.CARD.PN ---
Subjective Subjective Remarks No events overnight Overall patient states he has not complaints Telemetry showing aflutter with controlled ventricular response, 1 episode of wide complex tachycardia for ~8 beats, patient asymptomatic during the episode Objective Medications Current Medications Medications (Trade) Dose Ordered Sig/Alfredito Route Start Time Stop Time Status Last Admin (Chlorhexidine 2% Cloth) 3 pack DAILY@04 TOPICAL 04/26/17 04:00 04/30/17 04:01 Diltiazem HCl 125 mg/Sodium Chloride 125 ml @ 5 mls/hr TITRATE PRN IV 04/25/17 22:45 04/25/17 23:44 (NS Flush) 2 ml UNSCH PRN IV FLUSH 04/25/17 22:45 (NS Flush) 2 ml BID IV FLUSH 04/26/17 09:00 04/28/17 09:10 (Morphine Inj) 2 mg Q2H PRN IV PUSH 04/25/17 22:45 04/28/17 09:15 (Protonix Inj) 40 mg DAILY IV PUSH 04/26/17 09:00 04/28/17 09:10 (Zofran Inj) 4 mg Q6H PRN IV PUSH 04/25/17 22:45 (Duoneb Neb) 1 ampule Q6HR NEB INH 04/26/17 04:00 04/28/17 09:15 (Albuterol Neb) 2.5 mg Q2HR NEB PRN INH 04/25/17 22:45 Miscellaneous Information 1 Q361D XX 04/25/17 22:45 04/25/17 22:45 (Chlorhexidine 2% Cloth) 3 pack Taper DAILY@04 TOP 04/26/17 04:00 04/22/18 03:59 04/28/17 01:03 (Chlorhexidine 2% Cloth) 3 pack UNSCH PRN TOP 04/25/17 22:45 (Emilie-Colace) 1 tab BID PO 04/26/17 09:00 04/28/17 09:10 (Milk Of Magnesia Liq) 30 ml Q12H PRN PO 04/25/17 22:45 (Senokot) 17.2 mg Q12H PRN PO 04/25/17 22:45 (Dulcolax Supp) 10 mg DAILY PRN RECTAL 04/25/17 22:45 (Lactulose Liq) 30 ml DAILY PRN PO 04/25/17 22:45 (Pradaxa) 150 mg BID PO 04/25/17 23:15 04/28/17 09:10 Cefepime HCl 2000 mg/Sodium Chloride 100 ml @ 200 mls/hr Q12H IV 04/26/17 00:01 04/28/17 01:03 (Aspirin Chew) 81 mg DAILY CHEW 04/26/17 09:00 04/28/17 09:09 (Breo Ellipta 100-25 Inh) 1 puff DAILY INH 04/26/17 09:00 04/28/17 09:00 (Lanoxin Inj) 0.125 mg DAILY IV PUSH 04/26/17 19:00 04/28/17 09:10 (Synthroid) 125 mcg DAILY@0600 PO 04/26/17 06:00 04/28/17 05:02 (Coreg) 3.125 mg Q12HR PO 04/27/17 14:00 04/28/17 09:10 Vital Signs / I&O Vital Signs Date Time Temp Pulse Resp B/P (MAP) Pulse Ox O2 Delivery O2 Flow Rate FiO2 04/28/17 13:00 75 31 92/63 (73) 100 04/28/17 12:00 111 04/28/17 12:00 98.0 67 30 89/55 (66) 04/28/17 10:00 67 04/28/17 09:20 18 04/28/17 08:00 111 04/28/17 07:38 100 Nasal Cannula 2.00 04/28/17 06:00 67 04/28/17 04:00 97.5 83 22 104/66 (79) 100 04/28/17 04:00 83 04/28/17 02:00 76 04/28/17 00:00 97.7 85 28 90/57 (68) 100 04/28/17 00:00 85 04/27/17 22:00 82 04/27/17 20:00 131 04/27/17 20:00 97.5 131 19 108/83 (91) 100 04/27/17 19:36 100 Nasal Cannula 2.00 04/27/17 18:00 116 04/27/17 16:00 98.0 118 24 115/64 (81) 99 04/27/17 16:00 116 I/O 10/10/17 10/05/0404/27/17 04/28/17 04/28/17 04/28/17 07:00 15:00 23:00 07:00 15:00 23:00 Intake Total 580 ml 520 ml 820 ml Output Total 300 ml 450 ml 325 ml Balance 280 ml 70 ml 495 ml Intake Oral 480 ml 420 ml 720 ml IV Total 100 ml 100 ml 100 ml Output Urine Total 300 ml 450 ml 325 ml # Bowel Movements 0 0 Physical Exam GENERAL: NAD, alert and awake SKIN: Warm and dry. HEAD: Atraumatic. Normocephalic. EYES: Pupils equal and round. No scleral icterus. No injection or drainage. ENT: No nasal bleeding or discharge. Mucous membranes pink and moist. NECK: Trachea midline. No JVD. CARDIOVASCULAR: Irregularly irregular RESPIRATORY: No accessory muscle use. Decreased breath sounds bilaterally GASTROINTESTINAL: Abdomen soft, non-tender, nondistended. Hepatic and splenic margins not palpable. MUSCULOSKELETAL: Extremities without clubbing, cyanosis, or edema. No obvious deformities. NEUROLOGICAL: Awake and alert. No obvious cranial nerve deficits. Motor grossly within normal limits. Five out of 5 muscle strength in the arms and legs. Normal speech. PSYCHIATRIC: Appropriate mood and affect; insight and judgment normal. Laboratory Laboratory Tests Test 04/25/17 14:20 04/25/17 14:25 04/25/17 14:35 04/25/17 18:55 White Blood Count 8.6 TH/MM3 (4.0-11.0) Red Blood Count 5.38 MIL/MM3 (4.50-5.90) Hemoglobin 18.0 GM/DL (13.0-17.0) Hematocrit 53.6 % (39.0-51.0) Mean Corpuscular Volume 99.6 FL (80.0-100.0) Mean Corpuscular Hemoglobin 33.4 PG (27.0-34.0) Mean Corpuscular Hemoglobin Concent 33.6 % (32.0-36.0) Red Cell Distribution Width 14.7 % (11.6-17.2) Platelet Count 166 TH/MM3 (150-450) Mean Platelet Volume 8.7 FL (7.0-11.0) Neutrophils (%) (Auto) 73.0 % (16.0-70.0) Lymphocytes (%) (Auto) 13.3 % (9.0-44.0) Monocytes (%) (Auto) 13.4 % (0.0-8.0) Eosinophils (%) (Auto) 0.1 % (0.0-4.0) Basophils (%) (Auto) 0.2 % (0.0-2.0) Neutrophils # (Auto) 6.3 TH/MM3 (1.8-7.7) Lymphocytes # (Auto) 1.1 TH/MM3 (1.0-4.8) Monocytes # (Auto) 1.2 TH/MM3 (0-0.9) Eosinophils # (Auto) 0.0 TH/MM3 (0-0.4) Basophils # (Auto) 0.0 TH/MM3 (0-0.2) CBC Comment DIFF FINAL Differential Comment Prothrombin Time 20.1 SEC (9.8-11.6) Prothromb Time International Ratio 1.8 RATIO Activated Partial Thromboplast Time 34.8 SEC (24.3-30.1) Blood Urea Nitrogen 105 MG/DL (7-18) Creatinine 1.81 MG/DL (0.60-1.30) Random Glucose 126 MG/DL (74-106) Total Protein 8.3 GM/DL (6.4-8.2) Albumin 3.4 GM/DL (3.4-5.0) Calcium Level 9.2 MG/DL (8.5-10.1) Alkaline Phosphatase 93 U/L (45-117) Aspartate Amino Transf (AST/SGOT) 1285 U/L (15-37) Alanine Aminotransferase (ALT/SGPT) 1153 U/L (12-78) Total Bilirubin 5.0 MG/DL (0.2-1.0) Sodium Level 141 MEQ/L (136-145) Potassium Level 3.6 MEQ/L (3.5-5.1) Chloride Level 106 MEQ/L (98-107) Carbon Dioxide Level 20.8 MEQ/L (21.0-32.0) Anion Gap 14 MEQ/L (5-15) Estimat Glomerular Filtration Rate 46 ML/MIN (>89) Serum Osmolality 324 MOSM/KG (275-295) Lactic Acid Level 2.3 mmol/L (0.4-2.0) 3.0 mmol/L (0.4-2.0) Total Creatine Kinase 2242 U/L (39-308) Creatine Kinase MB 12.4 NG/ML (0.5-3.6) Creatine Kinase MB % 0.6 % (0.0-4.0) Troponin I 0.72 NG/ML (0.02-0.05) B-Type Natriuretic Peptide GREATER THAN 5000 PG/ML Lipase 974 U/L (73-393) Salicylates Level LESS THAN 1.7 MG/DL Urine Opiates Screen NEG (NEG) Acetaminophen Level LESS THAN 2.0 MCG/ML Urine Barbiturates Screen NEG (NEG) Urine Amphetamines Screen NEG (NEG) Urine Benzodiazepines Screen NEG (NEG) Urine Cocaine Screen POS (NEG) Urine Cannabinoids Screen NEG (NEG) Ethyl Alcohol Level LESS THAN 3 MG/DL (0-5) Urine Color YELLOW (YELLW/STRAW) Urine Turbidity HAZY (CLEAR) Urine pH 5.5 (5.0-8.5) Urine Specific Advance 1.017 (1.002-1.035) Urine Protein 30 mg/dL (NEG-TRACE) Urine Glucose (UA) NEG mg/dL (NEG) Urine Ketones NEG mg/dL (NEG) Urine Occult Blood MOD (NEG) Urine Nitrite NEG (NEG) Urine Bilirubin NEG (NEG) Urine Urobilinogen LESS THAN 2.0 MG/DL (LESS Urine Leukocyte Esterase NEG (NEG) Urine RBC 1 /hpf (0-3) Urine WBC 2 /hpf (0-5) Urine Squamous Epithelial Cells 1 /hpf (0-5) Microscopic Urinalysis Comment CULT NOT INDICATED Blood Gas Puncture Site RT FEMORAL Blood Gas Patient Temperature 98.6 Blood Gas HCO3 22 mmol/L (22-26) Blood Gas Base Excess -1.5 mmol/L (-2-2) Blood Gas Oxygen Saturation 93 % (90-100) Arterial Blood pH 7.47 (7.380-7.420) Arterial Blood Partial Pressure CO2 30 mmHg (38-42) Arterial Blood Partial Pressure O2 79 mmHG (61-120) Arterial Blood Oxygen Content 21.1 Vol % (12.0-20.0) Arterial Blood Carboxyhemoglobin 1.1 % (0-4) Arterial Blood Methemoglobin 0.5 % (0-2) Blood Gas Hemoglobin 16.1 G/DL (12.0-16.0) Oxygen Delivery Device NASAL CANNULA Blood Gas Liter Flow 4 L/M Test 04/25/17 22:00 04/26/17 04:27 04/26/17 04:28 04/26/17 04:55 Nasal Screen MRSA (PCR) MRSA NOT DETECTED (NOT Ammonia LESS THAN 10 MCMOL/L Blood Urea Nitrogen 98 MG/DL (7-18) Creatinine 1.76 MG/DL (0.60-1.30) Random Glucose 118 MG/DL (74-106) Total Protein 8.4 GM/DL (6.4-8.2) Albumin 3.1 GM/DL (3.4-5.0) Calcium Level 8.2 MG/DL (8.5-10.1) Phosphorus Level 2.9 MG/DL (2.5-4.9) Magnesium Level 3.6 MG/DL (1.5-2.5) Alkaline Phosphatase 87 U/L (45-117) Aspartate Amino Transf (AST/SGOT) 937 U/L (15-37) Alanine Aminotransferase (ALT/SGPT) 1011 U/L (12-78) Total Bilirubin 5.1 MG/DL (0.2-1.0) Sodium Level 145 MEQ/L (136-145) Potassium Level 3.9 MEQ/L (3.5-5.1) Chloride Level 112 MEQ/L (98-107) Carbon Dioxide Level 21.6 MEQ/L (21.0-32.0) Anion Gap 11 MEQ/L (5-15) Estimat Glomerular Filtration Rate 47 ML/MIN (>89) Troponin I 0.66 NG/ML (0.02-0.05) Lipase 1398 U/L (73-393) Thyroid Stimulating Hormone 3rd Gen 6.450 uIU/ML (0.358-3.740) Hepatitis A IgM Antibody NEGATIVE (NEGATIVE) Hepatitis B Surface Antigen NEGATIVE (NEGATIVE) Hepatitis B Core IgM Antibody NEGATIVE (NEGATIVE) Hepatitis C Antibody REACTIVE (NEGATIVE) White Blood Count 7.0 TH/MM3 (4.0-11.0) Red Blood Count 5.20 MIL/MM3 (4.50-5.90) Hemoglobin 17.1 GM/DL (13.0-17.0) Hematocrit 52.5 % (39.0-51.0) Mean Corpuscular Volume 100.9 FL (80.0-100.0) Mean Corpuscular Hemoglobin 32.9 PG (27.0-34.0) Mean Corpuscular Hemoglobin Concent 32.6 % (32.0-36.0) Red Cell Distribution Width 14.9 % (11.6-17.2) Platelet Count 149 TH/MM3 (150-450) Mean Platelet Volume 8.6 FL (7.0-11.0) Neutrophils (%) (Auto) 72.8 % (16.0-70.0) Lymphocytes (%) (Auto) 12.4 % (9.0-44.0) Monocytes (%) (Auto) 14.4 % (0.0-8.0) Eosinophils (%) (Auto) 0.3 % (0.0-4.0) Basophils (%) (Auto) 0.1 % (0.0-2.0) Neutrophils # (Auto) 5.1 TH/MM3 (1.8-7.7) Lymphocytes # (Auto) 0.9 TH/MM3 (1.0-4.8) Monocytes # (Auto) 1.0 TH/MM3 (0-0.9) Eosinophils # (Auto) 0.0 TH/MM3 (0-0.4) Basophils # (Auto) 0.0 TH/MM3 (0-0.2) CBC Comment DIFF FINAL Differential Comment Lactic Acid Level 2.2 mmol/L (0.4-2.0) Test 04/27/17 04:22 White Blood Count 6.5 TH/MM3 (4.0-11.0) Red Blood Count 5.09 MIL/MM3 (4.50-5.90) Hemoglobin 17.0 GM/DL (13.0-17.0) Hematocrit 51.6 % (39.0-51.0) Mean Corpuscular Volume 101.3 FL (80.0-100.0) Mean Corpuscular Hemoglobin 33.3 PG (27.0-34.0) Mean Corpuscular Hemoglobin Concent 32.9 % (32.0-36.0) Red Cell Distribution Width 15.1 % (11.6-17.2) Platelet Count 134 TH/MM3 (150-450) Mean Platelet Volume 8.7 FL (7.0-11.0) Neutrophils (%) (Auto) 71.7 % (16.0-70.0) Lymphocytes (%) (Auto) 14.0 % (9.0-44.0) Monocytes (%) (Auto) 13.2 % (0.0-8.0) Eosinophils (%) (Auto) 0.9 % (0.0-4.0) Basophils (%) (Auto) 0.2 % (0.0-2.0) Neutrophils # (Auto) 4.7 TH/MM3 (1.8-7.7) Lymphocytes # (Auto) 0.9 TH/MM3 (1.0-4.8) Monocytes # (Auto) 0.9 TH/MM3 (0-0.9) Eosinophils # (Auto) 0.1 TH/MM3 (0-0.4) Basophils # (Auto) 0.0 TH/MM3 (0-0.2) CBC Comment DIFF FINAL Differential Comment Blood Urea Nitrogen 85 MG/DL (7-18) Creatinine 1.39 MG/DL (0.60-1.30) Random Glucose 83 MG/DL (74-106) Total Protein 7.2 GM/DL (6.4-8.2) Albumin 2.7 GM/DL (3.4-5.0) Calcium Level 8.6 MG/DL (8.5-10.1) Alkaline Phosphatase 73 U/L (45-117) Aspartate Amino Transf (AST/SGOT) 494 U/L (15-37) Alanine Aminotransferase (ALT/SGPT) 694 U/L (12-78) Total Bilirubin 3.6 MG/DL (0.2-1.0) Sodium Level 152 MEQ/L (136-145) Potassium Level 3.8 MEQ/L (3.5-5.1) Chloride Level 117 MEQ/L (98-107) Carbon Dioxide Level 26.4 MEQ/L (21.0-32.0) Anion Gap 9 MEQ/L (5-15) Estimat Glomerular Filtration Rate 62 ML/MIN (>89) Lipase 1331 U/L (73-393) Digoxin Level 1.5 NG/ML (0.8-2.0) Assessment and Plan Problem List: (1) Ischemic cardiomyopathy ICD Codes: I25.5 - Generalized ischemic myocardial dysfunction Status: Chronic (2) Cocaine abuse ICD Codes: F14.10 - Cocaine abuse Status: Acute (3) Right leg DVT ICD Codes: I82.401 - Right leg DVT Status: Acute (4) CAD (coronary artery disease) ICD Codes: I25.10 - Atherosclerosis of coronary artery Status: Chronic (5) Hypertension ICD Codes: I10 - Hypertension Status: Chronic (6) CHF (congestive heart failure) ICD Codes: I50.9 - Congestive heart failure Status: Acute (7) Diabetes ICD Codes: E11.9 - Diabetes mellitus Status: Chronic (8) Atrial flutter with rapid ventricular response ICD Codes: I48.92 - Unspecified atrial flutter (9) Transaminitis ICD Codes: R74.0 - Nonspecific elevation of levels of transaminase and lactic acid dehydrogenase [LDH] (10) CVA (cerebrovascular accident) ICD Codes: I63.9 - Cerebral infarction, unspecified Assessment and Plan 1) Atrial flutter controlled on Coreg/Digoxin Will continue current medications 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 concern for cardiac depression Coreg not ideal, but has alpha-blocking 2) Crack cocaine abuse 3) Tobacco abuse 4) Elevated troponin Most likely type 2 with elevated CKs, and sitting in a chair for 30 hours without moving 5) CHADSVASc = 5, con't Dabigatran 6) Lower extremity DVT Currently on Dabigatran for Afib 7) Wide complex tachycardia Mostly appear to be aflutter with aberrancy, but possible NSVT Con't BB Has cardiomyopathy, not a candidate for Lifevest/ICD at this time as has not had follow up, as well as con't crack cocaine abuse 8) Await palliative care meeting with the family Previously recommended hospice by Dr. Sanabria due to end stage heart disease Evaluated at [facility] for LVAD/transplant, but not a candidate Manpreet Blanca DO Apr 28, 2017 14:23
[2017-04-29] VITALS (12 sets, daily range): BP systolic 89–111; BP diastolic 59–72; PULSE 66–84; RESP 5–34; TEMP 97–97.5; O2SAT 95–100
[2017-04-29] MEDS: CHLORHEXIDINE GLUCONATE 2 % 1 PACK (2 CLOTHS)(taper/protocol) TOPICAL SCH (04:00)
[2017-04-29] MEDS: CHLORHEXIDINE GLUCONATE 2 % 1 PACK (2 CLOTHS) TOP SCH (04:00)
[2017-04-29] MEDS: RESP: ALBUTEROL 2.5 MG/IPRATROPIUM 0.5 MG NEB (SCH) INH ×4 (04:15→21:10)
[2017-04-29] MEDS: LEVOTHYROXINE SODIUM 125 MCG TAB PO SCH (04:30)
[2017-04-29] MEDS: CEFEPIME INJ 2,000 MG in SODIUM CHLORIDE 0.9% INJ 100 ML IV SCH ×3 (04:31→14:49)
[2017-04-29] MEDS: DOCUSATE SODIUM 50 MG/SENNA 8.6 MG TAB PO SCH ×2 (08:20→20:53)
[2017-04-29] MEDS: DABIGATRAN ETEXILATE 150 MG CAP PO SCH ×2 (08:20→20:53)
[2017-04-29] MEDS: ASPIRIN 81 MG CHEW TAB CHEW SCH (08:20)
[2017-04-29] MEDS: CARVEDILOL 3.125 MG TAB PO SCH ×2 (08:20→20:53)
[2017-04-29] MEDS: DIGOXIN 0.5 MG/2 ML VIAL IV PUSH SCH (08:21)
[2017-04-29] MEDS: PANTOPRAZOLE SODIUM 40 MG VIAL IV PUSH SCH (08:21)
[2017-04-29] MEDS: SODIUM CHLORIDE 0.9% FLUSH 10 ML FLUSH IV FLUSH SCH ×2 (08:21→20:53)
[2017-04-29] MEDS: FLUTICASONE 100 MCG/VILANTEROL 25 MCG INHALER INH SCH (08:21)
--- NOTE | 2017-04-29 10:22 | PD.CARD.PN ---
Subjective Subjective Remarks No events overnight Overall patient states he has not complaints Telemetry showing aflutter with controlled ventricular response, 2 episode of wide complex tachycardia for ~8 beats, patient asymptomatic during the episode Objective Medications Current Medications Medications (Trade) Dose Ordered Sig/Alfredito Route Start Time Stop Time Status Last Admin (Chlorhexidine 2% Cloth) 3 pack DAILY@04 TOPICAL 04/26/17 04:00 04/30/17 04:01 Diltiazem HCl 125 mg/Sodium Chloride 125 ml @ 5 mls/hr TITRATE PRN IV 04/25/17 22:45 04/25/17 23:44 (NS Flush) 2 ml UNSCH PRN IV FLUSH 04/25/17 22:45 (NS Flush) 2 ml BID IV FLUSH 04/26/17 09:00 04/29/17 08:21 (Morphine Inj) 2 mg Q2H PRN IV PUSH 04/25/17 22:45 04/28/17 09:15 (Protonix Inj) 40 mg DAILY IV PUSH 04/26/17 09:00 04/29/17 08:21 (Zofran Inj) 4 mg Q6H PRN IV PUSH 04/25/17 22:45 (Duoneb Neb) 1 ampule Q6HR NEB INH 04/26/17 04:00 04/29/17 09:29 (Albuterol Neb) 2.5 mg Q2HR NEB PRN INH 04/25/17 22:45 Miscellaneous Information 1 Q361D XX 04/25/17 22:45 04/25/17 22:45 (Chlorhexidine 2% Cloth) 3 pack Taper DAILY@04 TOP 04/26/17 04:00 04/22/18 03:59 04/29/17 04:00 (Chlorhexidine 2% Cloth) 3 pack UNSCH PRN TOP 04/25/17 22:45 (Emilie-Colace) 1 tab BID PO 04/26/17 09:00 04/29/17 08:20 (Milk Of Magnesia Liq) 30 ml Q12H PRN PO 04/25/17 22:45 (Senokot) 17.2 mg Q12H PRN PO 04/25/17 22:45 (Dulcolax Supp) 10 mg DAILY PRN RECTAL 04/25/17 22:45 (Lactulose Liq) 30 ml DAILY PRN PO 04/25/17 22:45 (Pradaxa) 150 mg BID PO 04/25/17 23:15 04/29/17 08:20 Cefepime HCl 2000 mg/Sodium Chloride 100 ml @ 200 mls/hr Q12H IV 04/26/17 00:01 04/29/17 04:32 (Aspirin Chew) 81 mg DAILY CHEW 04/26/17 09:00 04/29/17 08:20 (Breo Ellipta 100-25 Inh) 1 puff DAILY INH 04/26/17 09:00 04/29/17 08:21 (Lanoxin Inj) 0.125 mg DAILY IV PUSH 04/26/17 19:00 04/29/17 08:21 (Synthroid) 125 mcg DAILY@0600 PO 04/26/17 06:00 04/29/17 04:30 (Coreg) 3.125 mg Q12HR PO 04/27/17 14:00 04/29/17 08:20 Vital Signs / I&O Vital Signs Date Time Temp Pulse Resp B/P (MAP) Pulse Ox O2 Delivery O2 Flow Rate FiO2 04/29/17 08:13 95 Nasal Cannula 2.00 04/29/17 06:00 75 04/29/17 04:00 97.0 78 5 89/61 (70) 100 04/29/17 04:00 78 04/29/17 02:00 84 04/29/17 00:00 97.0 83 7 97/59 (72) 100 04/29/17 00:00 83 04/28/17 22:00 84 04/28/17 20:12 97 Nasal Cannula 2.00 04/28/17 20:00 70 04/28/17 20:00 97.5 70 30 105/66 (79) 96 04/28/17 18:00 111 04/28/17 16:28 94 Nasal Cannula 2.00 04/28/17 16:00 66 9 93/60 (71) 04/28/17 16:00 111 04/28/17 14:00 111 04/28/17 14:00 111 04/28/17 13:00 75 31 92/63 (73) 100 04/28/17 12:00 111 04/28/17 12:00 98.0 67 30 89/55 (66) I/O 10/11/17 1004/28/17 04/29/17 04/29/17 04/29/17 07:00 15:00 23:00 07:00 15:00 23:00 Intake Total 820 ml 600 ml 600 ml Output Total 325 ml 500 ml 375 ml Balance 495 ml 100 ml 225 ml Intake Oral 720 ml 600 ml 500 ml IV Total 100 ml 100 ml Output Urine Total 325 ml 500 ml 375 ml # Bowel Movements 0 0 0 Physical Exam GENERAL: NAD, alert and awake SKIN: Warm and dry. HEAD: Atraumatic. Normocephalic. EYES: Pupils equal and round. No scleral icterus. No injection or drainage. ENT: No nasal bleeding or discharge. Mucous membranes pink and moist. NECK: Trachea midline. No JVD. CARDIOVASCULAR: Irregularly irregular RESPIRATORY: No accessory muscle use. Decreased breath sounds bilaterally GASTROINTESTINAL: Abdomen soft, non-tender, nondistended. Hepatic and splenic margins not palpable. MUSCULOSKELETAL: Extremities without clubbing, cyanosis, or edema. No obvious deformities. NEUROLOGICAL: Awake and alert. No obvious cranial nerve deficits. Motor grossly within normal limits. Five out of 5 muscle strength in the arms and legs. Normal speech. PSYCHIATRIC: Appropriate mood and affect; insight and judgment normal. Laboratory Laboratory Tests Test 04/27/17 04:22 White Blood Count 6.5 TH/MM3 (4.0-11.0) Red Blood Count 5.09 MIL/MM3 (4.50-5.90) Hemoglobin 17.0 GM/DL (13.0-17.0) Hematocrit 51.6 % (39.0-51.0) Mean Corpuscular Volume 101.3 FL (80.0-100.0) Mean Corpuscular Hemoglobin 33.3 PG (27.0-34.0) Mean Corpuscular Hemoglobin Concent 32.9 % (32.0-36.0) Red Cell Distribution Width 15.1 % (11.6-17.2) Platelet Count 134 TH/MM3 (150-450) Mean Platelet Volume 8.7 FL (7.0-11.0) Neutrophils (%) (Auto) 71.7 % (16.0-70.0) Lymphocytes (%) (Auto) 14.0 % (9.0-44.0) Monocytes (%) (Auto) 13.2 % (0.0-8.0) Eosinophils (%) (Auto) 0.9 % (0.0-4.0) Basophils (%) (Auto) 0.2 % (0.0-2.0) Neutrophils # (Auto) 4.7 TH/MM3 (1.8-7.7) Lymphocytes # (Auto) 0.9 TH/MM3 (1.0-4.8) Monocytes # (Auto) 0.9 TH/MM3 (0-0.9) Eosinophils # (Auto) 0.1 TH/MM3 (0-0.4) Basophils # (Auto) 0.0 TH/MM3 (0-0.2) CBC Comment DIFF FINAL Differential Comment Blood Urea Nitrogen 85 MG/DL (7-18) Creatinine 1.39 MG/DL (0.60-1.30) Random Glucose 83 MG/DL (74-106) Total Protein 7.2 GM/DL (6.4-8.2) Albumin 2.7 GM/DL (3.4-5.0) Calcium Level 8.6 MG/DL (8.5-10.1) Alkaline Phosphatase 73 U/L (45-117) Aspartate Amino Transf (AST/SGOT) 494 U/L (15-37) Alanine Aminotransferase (ALT/SGPT) 694 U/L (12-78) Total Bilirubin 3.6 MG/DL (0.2-1.0) Sodium Level 152 MEQ/L (136-145) Potassium Level 3.8 MEQ/L (3.5-5.1) Chloride Level 117 MEQ/L (98-107) Carbon Dioxide Level 26.4 MEQ/L (21.0-32.0) Anion Gap 9 MEQ/L (5-15) Estimat Glomerular Filtration Rate 62 ML/MIN (>89) Lipase 1331 U/L (73-393) Digoxin Level 1.5 NG/ML (0.8-2.0) Assessment and Plan Problem List: (1) Ischemic cardiomyopathy ICD Codes: I25.5 - Generalized ischemic myocardial dysfunction Status: Chronic (2) Cocaine abuse ICD Codes: F14.10 - Cocaine abuse Status: Acute (3) Right leg DVT ICD Codes: I82.401 - Right leg DVT Status: Acute (4) CAD (coronary artery disease) ICD Codes: I25.10 - Atherosclerosis of coronary artery Status: Chronic (5) Hypertension ICD Codes: I10 - Hypertension Status: Chronic (6) CHF (congestive heart failure) ICD Codes: I50.9 - Congestive heart failure Status: Acute (7) Diabetes ICD Codes: E11.9 - Diabetes mellitus Status: Chronic (8) Atrial flutter with rapid ventricular response ICD Codes: I48.92 - Unspecified atrial flutter (9) Transaminitis ICD Codes: R74.0 - Nonspecific elevation of levels of transaminase and lactic acid dehydrogenase [LDH] (10) CVA (cerebrovascular accident) ICD Codes: I63.9 - Cerebral infarction, unspecified Assessment and Plan 1) Atrial flutter controlled on Coreg/Digoxin Will continue current medications 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 and concern for cardiac depression Coreg not ideal, but has alpha-blocking 2) Crack cocaine abuse 3) Tobacco abuse 4) Elevated troponin Most likely type 2 with elevated CKs, and sitting in a chair for 30 hours without moving 5) CHADSVASc = 5, con't Dabigatran 6) Lower extremity DVT Currently on Dabigatran for Afib 7) Wide complex tachycardia Mostly appear to be aflutter with aberrancy, but possible NSVT Con't BB Has cardiomyopathy, not a candidate for Lifevest/ICD at this time as has not had follow up, compliance with medications, as well as con't crack cocaine abuse 8) Await palliative care meeting with the family Previously recommended hospice by Dr. Sanabria due to end stage heart disease Evaluated at [facility] for LV[facility]/transplant, but not a candidate Once decision on management, will further decide on how aggressive patient and family want to be Manpreet Blanca DO Apr 29, 2017 10:22
--- NOTE | 2017-04-29 11:19 | HHI.HCPN ---
Reason for visit a. To assist with evaluation and management of symptoms including:chest pain , dyspnea, weakness, malnutrition b. To assist medical decision maker(s) with: better understanding of current medical conditions; weighing benefits/burdens of medical treatment options; making medical treatment decisions. Subjective/Interval History Patient seen today for follow up regarding goals of care. Patient was stable to transfer out of the ICU yesterday morning, however he experienced 2 episodes of wide complex tachycardia, cardiology was consulted to evaluate the patient, - pt asymptomatic, no further interventions. Pt has remained stable. Eating some. No new labs. Mostly oriented per nursing. Cooperative. No new labs or imaging. Pt seen in room Niece at bedside visiting. He is alert, oriented x2-3 with some limited insight to conditions. Denies CP or dyspnea. Niece asked what is going on with his illness and conditions, he gives permission to speak with her RE- review w her dx, prognosis, no further aggressive tx options, pt approp for hospice/end of life comfort focus tx. Advise we have family meeting planned for around 10am Wednesday, she will notify other family members. She shares that Sister Lashay is actually currently hospitalized for fall and scheduled for neck surgery, will not be be able to participate due to her own conditions. Explore w pt designation of new HCS-- he is not sure who he would name as next , wants to think about it more . HCS form left w nursing if pt later wishes to complete it. Exploration of code status/CPR, pt is not sure what he would want, does not appear to have insight fully understand risk/benefits/limitations. Of note this patient was previously seen by palliative care July 2015-- during his third acute care hospitalization and a one-month time at that time. He was noted then to have significant ischemic cardiomyopathy with EF of 10%, and had a CODE BLUE event during that hospitalization he was eventually discharged to [facility] for further evaluation for LVAD and/or transplant however he was deemed not a candidate. He was then returned to [place] at which point palliative care was consulted. At that time palliative provider notes he seemed to understand he had end-stage cardiac disease however was hopeful that he still had time remaining and was not interested in hospice services at that time. Family/friend interactions Following exam call to sister Cortney Diaz -- updated on condition, assessment, affirm Mtg for Wednesday around 04/1030. . Advance Directives Living Will: Never completed Health Care Surrogate: Copy in medical record Advance Directive Specifics Date completed: July 2014 Health Care Surrogate(s): Sister Lashay Givens Objective Vital Signs Date Time Temp Pulse Resp B/P (MAP) Pulse Ox O2 Delivery O2 Flow Rate FiO2 04/29/17 10:00 74 04/29/17 08:13 95 Nasal Cannula 2.00 04/29/17 08:00 83 04/29/17 08:00 97.0 83 12 102/72 (82) 100 04/29/17 06:00 75 04/29/17 04:00 97.0 78 5 89/61 (70) 100 04/29/17 04:00 78 04/29/17 02:00 84 04/29/17 00:00 97.0 83 7 97/59 (72) 100 04/29/17 00:00 83 04/28/17 22:00 84 04/28/17 20:12 97 Nasal Cannula 2.00 04/28/17 20:00 70 04/28/17 20:00 97.5 70 30 105/66 (79) 96 04/28/17 18:00 111 04/28/17 16:28 94 Nasal Cannula 2.00 04/28/17 16:00 66 9 93/60 (71) 04/28/17 16:00 111 04/28/17 14:00 111 04/28/17 14:00 111 04/28/17 13:00 75 31 92/63 (73) 100 04/28/17 12:00 111 04/28/17 12:00 98.0 67 30 89/55 (66) Intake & Output 04/29/17 04/29/17 06:59 18:59 Intake Total 600 ml Output Total 375 ml Balance 225 ml Intake Oral 500 ml IV Total 100 ml Output Urine Total 375 ml # Bowel Movements 0 Physical Exam CONSTITUTIONAL/GENERAL: This is a frail, chronically ill appearing patient TUBES/LINES/DRAINS: PIV UE, NC O2, quezada catheter CARDIOVASCULAR: Regular, atrial flutter observed on bedside monitor. Peripheral pulses symmetric- pedal faint, feet cool RESPIRATORY/CHEST: Symmetric, unlabored respirations. ON 2 L NC . Clear to auscultation. Breath sounds equal bilaterally. GASTROINTESTINAL: Abdomen soft, nontender , nondistended. No palpable masses. No guarding. Bowel sounds present. GENITOURINARY: Without palpable bladder distension. Quezada catheter in place. MUSCULOSKELETAL: Extremities without clubbing, cyanosis, or edema. No mottling or clubbing. extremities very thin NEUROLOGICAL: Awake and alert. oriented x2-3. Speech soft, very difficult to understand, slow to find words/respond. Limited insight. Moves all 4 extremities-- follows commands. PSYCHIATRIC: No obvious anxiety/depression. . Diagnostic Tests Laboratory Laboratory Tests Test 04/27/17 04:22 White Blood Count 6.5 TH/MM3 (4.0-11.0) Red Blood Count 5.09 MIL/MM3 (4.50-5.90) Hemoglobin 17.0 GM/DL (13.0-17.0) Hematocrit 51.6 % (39.0-51.0) Mean Corpuscular Volume 101.3 FL (80.0-100.0) Mean Corpuscular Hemoglobin 33.3 PG (27.0-34.0) Mean Corpuscular Hemoglobin Concent 32.9 % (32.0-36.0) Red Cell Distribution Width 15.1 % (11.6-17.2) Platelet Count 134 TH/MM3 (150-450) Mean Platelet Volume 8.7 FL (7.0-11.0) Neutrophils (%) (Auto) 71.7 % (16.0-70.0) Lymphocytes (%) (Auto) 14.0 % (9.0-44.0) Monocytes (%) (Auto) 13.2 % (0.0-8.0) Eosinophils (%) (Auto) 0.9 % (0.0-4.0) Basophils (%) (Auto) 0.2 % (0.0-2.0) Neutrophils # (Auto) 4.7 TH/MM3 (1.8-7.7) Lymphocytes # (Auto) 0.9 TH/MM3 (1.0-4.8) Monocytes # (Auto) 0.9 TH/MM3 (0-0.9) Eosinophils # (Auto) 0.1 TH/MM3 (0-0.4) Basophils # (Auto) 0.0 TH/MM3 (0-0.2) CBC Comment DIFF FINAL Differential Comment Blood Urea Nitrogen 85 MG/DL (7-18) Creatinine 1.39 MG/DL (0.60-1.30) Random Glucose 83 MG/DL (74-106) Total Protein 7.2 GM/DL (6.4-8.2) Albumin 2.7 GM/DL (3.4-5.0) Calcium Level 8.6 MG/DL (8.5-10.1) Alkaline Phosphatase 73 U/L (45-117) Aspartate Amino Transf (AST/SGOT) 494 U/L (15-37) Alanine Aminotransferase (ALT/SGPT) 694 U/L (12-78) Total Bilirubin 3.6 MG/DL (0.2-1.0) Sodium Level 152 MEQ/L (136-145) Potassium Level 3.8 MEQ/L (3.5-5.1) Chloride Level 117 MEQ/L (98-107) Carbon Dioxide Level 26.4 MEQ/L (21.0-32.0) Anion Gap 9 MEQ/L (5-15) Estimat Glomerular Filtration Rate 62 ML/MIN (>89) Lipase 1331 U/L (73-393) Digoxin Level 1.5 NG/ML (0.8-2.0) Result Diagram: 04/27/1742104/27/17421 Imaging Last Impressions Lower Extremity Ultrasound 04/26/17 Signed Impressions: Service Date/Time: Wednesday, April 26, 2017 08:27 - CONCLUSION: Venous Doppler positive both legs. Frank Desir MD FACR Liver Ultrasound 04/26/17 Signed Impressions: Service Date/Time: Wednesday, April 26, 2017 08:07 - CONCLUSION: 1. Minimally enlarged mildly hyperechoic liver consistent with hepatic steatosis or medical liver disease. 2. Trace gallbladder sludge. Otherwise, no sonographic evidence for acute cholecystitis. 3. Stable 6.5 cm simple appearing cyst in the inferior pole of the right kidney. However, there is a 1.2 cm hyperechoic lesion adjacent to this cyst which is disparate in size in comparison to 2 mm calcified calculus noted on recent CT exam. Suspect this reflects a portion of the renal sinus fat. However, differential considerations include small cyst wall nodule versus small angiomyolipoma. Further characterization may be performed on an outpatient basis with renal mass CT or MRI examination if there is continued clinical concern. Afshin Freeman MD Chest X-Ray 04/26/17 Signed Impressions: Service Date/Time: Wednesday, April 26, 2017 03:43 - CONCLUSION: Stable chest Martir Gauthier MD Head CT 04/25/17 5525 Signed Impressions: Service Date/Time: Tuesday, April 25, 2017 15:26 - CONCLUSION: Old strokes and chronic white matter changes. Martir Gauthier MD Abdomen/Pelvis CT 04/25/17 0000 Signed Impressions: Service Date/Time: Tuesday, April 25, 2017 15:34 - CONCLUSION: 1. Atherosclerosis. 2. Right renal cyst and right lower pole nonobstructing renal calculus. 3. No inflammatory changes are seen. Archie Oshea MD Assessment and Plan Disease Oriented Problem List: (1) CHF (congestive heart failure) Comment: Chronic systolic, EF 10-15 % (2) Atrial flutter with rapid ventricular response (3) CVA (cerebrovascular accident) (4) S/P CABG x 3 (5) MATTHEW (acute kidney injury) (6) Transaminitis (7) History of cocaine abuse (8) Ischemic cardiomyopathy (9) Seizure disorder (10) Hypertension (11) Hypothyroidism (12) GERD (gastroesophageal reflux disease) (13) Hepatitis C (14) Non-Hodgkin lymphoma Symptom Scale: (1) Dyspnea (2) Chest pain (3) Weakness (4) Malnutrition Pertinent Non-Medical Issues Psychosocial:Per prior palliative care H&P: Is originally from [place]. Moved to [facility] around the age of 12. 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 On disability as of 2016 palliative consult. . Previously was living with a girlfriend who assisted to care for him. Has 1 son , 1 daughter. His sister is healthcare surrogate. Spiritual:[employer] of [employer] Legal:Patient does not currently appear capacitated to make his medical decisions. He may possibly regain capacity. He does have healthcare surrogate designating his sister. Ethical issues impacting care: no ethical issues identified at this time Important Contacts [place] (sister and health care surrogate): [phone] (non- working number) :[phone] Cortney Travis (sister): [phone] Alisha Cruz, daughter: [phone] Karel, son: [phone] (not a working number, no longer his number) . Prognosis This patient has end-stage ischemic cardiomyopathy. He has had multiple hospitalizations secondary to this. He is not a candidate for LVAD or transplant, has been previously evaluated at [facility]. Cardiology has previously recommended hospice. He will continue to experience complications secondary to his disease process, and recurrent hospitalizations. He is appropriate for hospice if goals compatible . Code Status: Full Code Plan * Legal decision maker:Patient does not currently appear capacitated to make his medical decisions. He may possibly regain capacity. He does have healthcare surrogate designating his sister. * Goals: Again today discussion with patient was limited due to limited/poor insight, partially oriented. * Palliative care team is ensuring ongoing efforts are in place to speak with patient's sister Lashay who is also his health surrogate. Called patient's sister Lashay Givens, phone went straight to voicemail and voicemail is full, unable to leave message. Phone number for patient's daughter Alisha Cruz rings and does not have the availability to leave a message. Phone number for patient' s son Karel [phone], is no longer his number and he can not be reached via this number. * 04/28 @ 1106: Located contact information for patient's sister Cortney Travis, discussed and updated on patient's current clinical status. Cortney Travis indicates an understanding of Mr. Walker's end stage heart disease and is amenable to Hospice. Cortney Travis reported patient's other sister Lashay (his designated HCS) recently suffered from a fall, was recently hospitalized, and is unable to physically come to the hospital to meet. Attempted to call updated phone number provided for Lashay, voicemail left and palliative contact information provided. * Meeting set for Wednesday05/03/17 @ 1000 to discuss GOC and possible transition to comfort focused goals/Hospice. * CODE STATUS: FULL CODE. Discussed with patient the risks, benefits and limitations of CPR, when discussing his code status patient became guarded, closed his eyes, and minimally engaged in conversation, he did endorse that he would like to remain a full code, and he would want CPR if necessary as well as mechanical ventilation. Although he indicated yesterday to my colleague he would not want CPR. Again patient has limited insight and lacks the capacity to make informed decisions independently at this time. * SYMPTOMS: --dyspnea- h/o COPD, tachypnea during current admission- subjectively denies dyspnea today. Risk for 2/2 ES heart failure, breathing comfortably on NC. On scheduled albuterol nebulizers. --chest pain - intermittent CP. Hx ES systolic heart failure, + cocaine use. Patient has morphine 2mg IV PRN, he has not required. No recommendations at this time. -- weakness - Secondary to multiple comorbidities, deconditioning. Patient could benefit from PT/OT if goals remain aggressive. -- malnutrition- albumin 3.1. current weight 64.5kg . prior admissions in the past few years weights 72-75kg. +/- 10 kg weight loss in couple years. Unable to describe his appetite or intake. May benefit from nutritional supplement. * Palliative care will continue to follow during hospital course as condition evolves, to assist patient/decision-maker with understanding of medical conditions, weighing benefits/burdens of treatment options, for clarification of goals of treatment. Additionally will assist with any symptoms of palliative concern . Attestation To help prompt me to consider important information that might be impacting today's encounter and assessment, information from prior notes written by myself or my colleagues may have been "brought forward" into today's note. My signature on this note, however, is an attestation that I personally performed the exam, history, and/or decision-making noted today, and, unless otherwise indicated, the interactions with patient, family, and staff as well as the review of records all occurred today. I also attest that the listed assessment and stated plan reflect my best clinical judgment today based on the combination of historical information, prior notes, and today's exam/ interactions. When time spent is documented, it refers only to time spent today by the signer, or if indicated, combined time spent today by collaborating physician/nurse practitioner. Soheila Brewer Apr 29, 2017 11:19
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
[2017-04-29 15:06] LABS: BICARBONATE 21.2 MEQ/L (21.0-32.0); INDIRECT BILIRUBIN 0.9 MG/DL (0.0-0.8); MAGNESIUM 2.6 MG/DL (1.5-2.5); TOTAL BILIRUBIN ADULT 2.2 MG/DL (0.2-1.0)
[2017-04-29 15:13] LABS: POTASSIUM 4.9 MEQ/L (3.5-5.1)
[2017-04-30] VITALS (13 sets, daily range): BP systolic 92–113; BP diastolic 62–72; PULSE 64–95; RESP 17–48; TEMP 96–98; O2SAT 97–100
[2017-04-30] MEDS: CEFEPIME INJ 2,000 MG in SODIUM CHLORIDE 0.9% INJ 100 ML IV SCH ×2 (00:01→12:16)
[2017-04-30] MEDS: LEVOTHYROXINE SODIUM 125 MCG TAB PO SCH (03:21)
[2017-04-30] MEDS: CHLORHEXIDINE GLUCONATE 2 % 1 PACK (2 CLOTHS)(taper/protocol) TOPICAL SCH (03:21)
[2017-04-30] MEDS: CHLORHEXIDINE GLUCONATE 2 % 1 PACK (2 CLOTHS) TOP SCH (03:21)
[2017-04-30] MEDS: CARVEDILOL 3.125 MG TAB PO SCH ×2 (09:00→21:00)
[2017-04-30] MEDS: DOCUSATE SODIUM 50 MG/SENNA 8.6 MG TAB PO SCH ×2 (09:00→21:41)
[2017-04-30] MEDS: ASPIRIN 81 MG CHEW TAB CHEW SCH (09:00)
[2017-04-30] MEDS: DABIGATRAN ETEXILATE 150 MG CAP PO SCH ×2 (09:00→21:41)
[2017-04-30] MEDS: FLUTICASONE 100 MCG/VILANTEROL 25 MCG INHALER INH SCH (09:18)
[2017-04-30] MEDS: SODIUM CHLORIDE 0.9% FLUSH 10 ML FLUSH IV FLUSH SCH ×2 (09:18→21:41)
[2017-04-30] MEDS: PANTOPRAZOLE SODIUM 40 MG VIAL IV PUSH SCH (09:19)
[2017-04-30] MEDS: DIGOXIN 0.5 MG/2 ML VIAL IV PUSH SCH (09:19)
--- NOTE | 2017-04-30 09:25 | PD.CARD.PN ---
Subjective Subjective Remarks No events overnight Overall patient states he has not complaints, but somewhat confused Telemetry showing aflutter with controlled ventricular response converting to normal sinus rhythm, few episodes of wide complex tachycardia for ~8 beats, patient asymptomatic during the episode Objective Medications Current Medications Medications (Trade) Dose Ordered Sig/Alfredito Route Start Time Stop Time Status Last Admin Diltiazem HCl 125 mg/Sodium Chloride 125 ml @ 5 mls/hr TITRATE PRN IV 04/25/17 22:45 04/25/17 23:44 (NS Flush) 2 ml UNSCH PRN IV FLUSH 04/25/17 22:45 (NS Flush) 2 ml BID IV FLUSH 04/26/17 09:00 04/30/17 09:18 (Morphine Inj) 2 mg Q2H PRN IV PUSH 04/25/17 22:45 04/28/17 09:15 (Protonix Inj) 40 mg DAILY IV PUSH 04/26/17 09:00 04/30/17 09:19 (Zofran Inj) 4 mg Q6H PRN IV PUSH 04/25/17 22:45 (Albuterol Neb) 2.5 mg Q2HR NEB PRN INH 04/25/17 22:45 Miscellaneous Information 1 Q361D XX 04/25/17 22:45 04/25/17 22:45 (Chlorhexidine 2% Cloth) 3 pack Taper DAILY@04 TOP 04/26/17 04:00 04/22/18 03:59 04/30/17 03:21 (Chlorhexidine 2% Cloth) 3 pack UNSCH PRN TOP 04/25/17 22:45 (Emilie-Colace) 1 tab BID PO 04/26/17 09:00 04/29/17 08:20 (Milk Of Magnesia Liq) 30 ml Q12H PRN PO 04/25/17 22:45 (Senokot) 17.2 mg Q12H PRN PO 04/25/17 22:45 (Dulcolax Supp) 10 mg DAILY PRN RECTAL 04/25/17 22:45 (Lactulose Liq) 30 ml DAILY PRN PO 04/25/17 22:45 (Pradaxa) 150 mg BID PO 04/25/17 23:15 04/29/17 20:53 Cefepime HCl 2000 mg/Sodium Chloride 100 ml @ 200 mls/hr Q12H IV 04/26/17 00:01 04/30/17 00:01 (Aspirin Chew) 81 mg DAILY CHEW 04/26/17 09:00 04/29/17 08:20 (Breo Ellipta 100-25 Inh) 1 puff DAILY INH 04/26/17 09:00 04/30/17 09:18 (Lanoxin Inj) 0.125 mg DAILY IV PUSH 04/26/17 19:00 04/30/17 09:19 (Synthroid) 125 mcg DAILY@0600 PO 04/26/17 06:00 04/30/17 03:21 (Coreg) 3.125 mg Q12HR PO 04/27/17 14:00 04/29/17 20:53 Vital Signs / I&O Vital Signs Date Time Temp Pulse Resp B/P (MAP) Pulse Ox O2 Delivery O2 Flow Rate FiO2 04/30/17 07:54 100 Nasal Cannula 04/30/17 06:00 71 04/30/17 04:00 97.2 75 35 97/68 (78) 98 04/30/17 04:00 75 04/30/17 02:00 77 04/30/17 00:00 97.0 83 48 113/62 (79) 100 04/30/17 00:00 83 04/29/17 22:00 81 04/29/17 20:00 97.0 73 30 98/70 (79) 96 04/29/17 20:00 73 04/29/17 19:02 95 Nasal Cannula 2.00 04/29/17 16:00 66 04/29/17 16:00 97.2 66 14 111/71 (84) 04/29/17 12:00 71 04/29/17 12:00 97.5 71 34 95/61 (72) 04/29/17 10:00 74 I/O 04/29/17 04/29/17 04/29/17 04/30/17 04/30/17 04/30/17 07:00 15:00 23:00 07:00 15:00 23:00 Intake Total 600 ml 720 ml 600 ml Output Total 375 ml 350 ml 390 ml Balance 225 ml 370 ml 210 ml Intake Oral 500 ml 720 ml 500 ml IV Total 100 ml 100 ml Output Urine Total 375 ml 350 ml 390 ml # Voids 2 # Bowel Movements 0 2 2 Physical Exam GENERAL: NAD, alert and awake, not really oriented SKIN: Warm and dry. HEAD: Atraumatic. Normocephalic. EYES: Pupils equal and round. No scleral icterus. No injection or drainage. ENT: No nasal bleeding or discharge. Mucous membranes pink and moist. NECK: Trachea midline. No JVD. CARDIOVASCULAR: Regular rate and rhythm RESPIRATORY: No accessory muscle use. Decreased breath sounds bilaterally GASTROINTESTINAL: Abdomen soft, non-tender, nondistended. Hepatic and splenic margins not palpable. MUSCULOSKELETAL: Extremities without clubbing, cyanosis, or edema. No obvious deformities. NEUROLOGICAL: Awake and alert. No obvious cranial nerve deficits. Motor grossly within normal limits. Five out of 5 muscle strength in the arms and legs. Normal speech. PSYCHIATRIC: Appropriate mood and affect; insight and judgment normal. Laboratory Laboratory Tests Test 04/29/17 13:44 Blood Urea Nitrogen 60 MG/DL Creatinine 1.25 MG/DL Random Glucose 117 MG/DL Total Protein 6.8 GM/DL Albumin 2.3 GM/DL Calcium Level 8.9 MG/DL Phosphorus Level 2.5 MG/DL Magnesium Level 2.6 MG/DL Alkaline Phosphatase 78 U/L Aspartate Amino Transf (AST/SGOT) 191 U/L Alanine Aminotransferase (ALT/SGPT) 352 U/L Total Bilirubin 2.2 MG/DL Direct Bilirubin 1.3 MG/DL Sodium Level 141 MEQ/L Potassium Level 4.9 MEQ/L Chloride Level 112 MEQ/L Carbon Dioxide Level 21.2 MEQ/L Anion Gap 8 MEQ/L Estimat Glomerular Filtration Rate 70 ML/MIN Indirect Bilirubin 0.9 MG/DL Lipase 1605 U/L Assessment and Plan Problem List: (1) Ischemic cardiomyopathy ICD Codes: I25.5 - Generalized ischemic myocardial dysfunction Status: Chronic (2) Cocaine abuse ICD Codes: F14.10 - Cocaine abuse Status: Acute (3) Right leg DVT ICD Codes: I82.401 - Right leg DVT Status: Acute (4) CAD (coronary artery disease) ICD Codes: I25.10 - Atherosclerosis of coronary artery Status: Chronic (5) Hypertension ICD Codes: I10 - Hypertension Status: Chronic (6) CHF (congestive heart failure) ICD Codes: I50.9 - Congestive heart failure Status: Acute (7) Diabetes ICD Codes: E11.9 - Diabetes mellitus Status: Chronic (8) Atrial flutter with rapid ventricular response ICD Codes: I48.92 - Unspecified atrial flutter Status: Acute (9) Transaminitis ICD Codes: R74.0 - Nonspecific elevation of levels of transaminase and lactic acid dehydrogenase [LDH] Status: Acute (10) CVA (cerebrovascular accident) ICD Codes: I63.9 - Cerebral infarction, unspecified Assessment and Plan 1) Atrial flutter controlled on Coreg/Digoxin Will continue current medications Avoid Cardizem/CCB if possible long term care phlebotomist due to low EF and concern for cardiac depression Coreg not ideal, but has alpha-blocking 2) Crack cocaine abuse 3) Tobacco abuse 4) Elevated troponin Most likely type 2 with elevated CKs, and sitting in a chair for 30 hours without moving 5) CHADSVASc = 5, con't Dabigatran 6) Lower extremity DVT Currently on Dabigatran for Afib 7) Wide complex tachycardia Mostly appear to be aflutter with aberrancy, but possible NSVT Con't BB Has cardiomyopathy, not a candidate for Lifevest/ICD at this time as has not had follow up, not compliant with medications, as well as con't crack cocaine abuse 8) Await palliative care meeting with the family Previously recommended hospice by Dr. Sanabria due to end stage heart disease Evaluated at [facility] for LVAD/transplant, but not a candidate Once decision on management, will further decide on how aggressive patient and family want to be Problem Qualifiers (1) CHF (congestive heart failure): Qualified Codes: I50.22 - Chronic systolic (congestive) heart failure Manpreet Blanca DO Apr 30, 2017 09:25
[2017-04-30] MEDS: MORPHINE SULFATE 4 MG/ML INJ IV PUSH PRN ×2 (12:43→15:19)
--- NOTE | 2017-04-30 13:07 | HHI.HCPN ---
Reason for visit a. To assist with evaluation and management of symptoms including:chest pain , dyspnea, weakness, malnutrition b. To assist medical decision maker(s) with: better understanding of current medical conditions; weighing benefits/burdens of medical treatment options; making medical treatment decisions. Subjective/Interval History Patient seen today for follow up regarding goals of care. Patient was stable to transfer out of the ICU yesterday morning, however he experienced 2 episodes of wide complex tachycardia, cardiology was consulted to evaluate the patient, - pt asymptomatic, no further interventions. Pt has remains in ICU. stable. Poor appetite today. No new labs. Cooperative. + BM, some GI complaints per nursing, stool HEMOCCULT POSITIVE- may repeat CBC today. Pt seen in room with nurse at bedside. He is alert, oriented x2-3 with some insight to conditions. + CP and shortness of breath, nursing getting prn morphine and reapplying NC O2. Explore with him designation of HCS. He does not wish to designate a sibling.Review statutes RE decision making if he is incapacitated. He does not wish to pick one child-- he says that he trusts all of his family to make the right decisions for him if they needed to. Explore with him his heart conditions, he indicates understanding that his conditions are not treatable and that he will from his heart condition at some point. Explore cardiac resuscitation status-- and what CPR entails, limitations in advanced cardiac disease . He indicates he would not want CPR and would want to be allowed to naturally. This conversation witnessed by RN. He appears to have reasonable understanding of resuscitation status. I will have another provider follow up with him RE code status before changing to DNR given his fluctuating mental status/insight. Advise I would enter DNR orders based on his wishes. Will continue to follow up RE possible designation of HCS. Of note this patient was previously seen by palliative care July 2015-- during his third acute care hospitalization and a one-month time at that time. He was noted then to have significant ischemic cardiomyopathy with EF of 10%, and had a CODE BLUE event during that hospitalization he was eventually discharged to [facility] for further evaluation for LVAD and/or transplant however he was deemed not a candidate. He was then returned to [facility] at which point palliative care was consulted. At that time palliative provider notes he seemed to understand he had end-stage cardiac disease however was hopeful that he still had time remaining and was not interested in hospice services at that time. Family/friend interactions Call to sister Cortney Diaz provided update she indicates she will not be able to begin to see patient before Wednesday. Review with her the patient did not wish to complete HCS. She thought she was designated as secondary though I review she is not listed a secondary paperwork. She indicates patient has always said he would want her and she is confident he will complete paperwork designating such when she is here. 1230========Update, spoke again w pt at bedside, his daughter Alisha arrived-- he wishes to designated her as HCS, w sister Cortney Diaz as secondary. He says they will work together. update Alisha on condition, limited options, overall prognosis-- she indicates she and the pt discussed DNR status earlier and that she is supportive of NO CPR/DNR status. Plan for meeting 1030 am wednesday w dtr, sister to further review hospice, limited options going forward. d/w RN , medical attending. . Advance Directives Living Will: Never completed Health Care Surrogate: Copy in medical record Advance Directive Specifics Date completed: July 2014 Health Care Surrogate(s): Sister Lashay Givens Significant change in goals: 04/30/17 pt requests DNR status; also completed NEW HCS naming dtr Alisha, and sister Cortney Diaz as secondary. Objective Vital Signs Date Time Temp Pulse Resp B/P (MAP) Pulse Ox O2 Delivery O2 Flow Rate FiO2 04/30/17 10:00 95 04/30/17 08:00 72 04/30/17 08:00 98.0 72 29 92/65 (74) 100 04/30/17 07:54 100 Nasal Cannula 04/30/17 06:00 71 04/30/17 04:00 97.2 75 35 97/68 (78) 98 04/30/17 04:00 75 04/30/17 02:00 77 04/30/17 00:00 97.0 83 48 113/62 (79) 100 04/30/17 00:00 83 04/29/17 22:00 81 04/29/17 20:00 97.0 73 30 98/70 (79) 96 04/29/17 20:00 73 04/29/17 19:02 95 Nasal Cannula 2.00 04/29/17 16:00 66 04/29/17 16:00 97.2 66 14 111/71 (84) Intake & Output 04/30/17 04/30/17 07:00 19:00 Intake Total 600 ml Output Total 390 ml Balance 210 ml Intake Oral 500 ml IV Total 100 ml Output Urine Total 390 ml # Bowel Movements 2 Physical Exam CONSTITUTIONAL/GENERAL: This is a frail, chronically ill appearing patient TUBES/LINES/DRAINS: PIV RUE, NC O2, quezada catheter CARDIOVASCULAR: Regular, Observe SR 70s via bedside monitor. Peripheral pulses symmetric- pedal faint, feet cool RESPIRATORY/CHEST: Symmetric, unlabored respirations. ON 2 L NC (reapplied). Clear to auscultation. Breath sounds equal bilaterally. GASTROINTESTINAL: Abdomen soft, flat ,nontender , nondistended. No palpable masses. No guarding. Bowel sounds normoactive GENITOURINARY: Without palpable bladder distension. Quezada catheter in place. MUSCULOSKELETAL: Extremities without clubbing, cyanosis, or edema. No mottling or clubbing. extremities very thin NEUROLOGICAL: Awake and alert. oriented x2-3. Speech soft, very difficult to understand, slow to find words/respond. some insight. Moves all 4 extremities- - follows commands. PSYCHIATRIC: No obvious anxiety/depression. . Diagnostic Tests Laboratory Laboratory Tests Test 04/29/17 13:44 Blood Urea Nitrogen 60 MG/DL (7-18) Creatinine 1.25 MG/DL (0.60-1.30) Random Glucose 117 MG/DL (74-106) Total Protein 6.8 GM/DL (6.4-8.2) Albumin 2.3 GM/DL (3.4-5.0) Calcium Level 8.9 MG/DL (8.5-10.1) Phosphorus Level 2.5 MG/DL (2.5-4.9) Magnesium Level 2.6 MG/DL (1.5-2.5) Alkaline Phosphatase 78 U/L (45-117) Aspartate Amino Transf (AST/SGOT) 191 U/L (15-37) Alanine Aminotransferase (ALT/SGPT) 352 U/L (12-78) Total Bilirubin 2.2 MG/DL (0.2-1.0) Direct Bilirubin 1.3 MG/DL (0.0-0.2) Sodium Level 141 MEQ/L (136-145) Potassium Level 4.9 MEQ/L (3.5-5.1) Chloride Level 112 MEQ/L (98-107) Carbon Dioxide Level 21.2 MEQ/L (21.0-32.0) Anion Gap 8 MEQ/L (5-15) Estimat Glomerular Filtration Rate 70 ML/MIN (>89) Indirect Bilirubin 0.9 MG/DL (0.0-0.8) Lipase 1605 U/L (73-393) Result Diagram: 04/27/17 0422 04/29/17 1344 Microbiology Microbiology Date/Time Source Procedure Growth Status 04/29/17 14:15 Stool Stool Stool Occult Blood (JASMINA) - Final HEMOCCULT POSITIVE Complete Imaging Last Impressions Lower Extremity Ultrasound 04/26/17 Signed Impressions: Service Date/Time: Wednesday, April 26, 2017 08:27 - CONCLUSION: Venous Doppler positive both legs. Frank Desir MD FACR Liver Ultrasound 04/26/17 0000 Signed Impressions: Service Date/Time: Wednesday, April 26, 2017 08:07 - CONCLUSION: 1. Minimally enlarged mildly hyperechoic liver consistent with hepatic steatosis or medical liver disease. 2. Trace gallbladder sludge. Otherwise, no sonographic evidence for acute cholecystitis. 3. Stable 6.5 cm simple appearing cyst in the inferior pole of the right kidney. However, there is a 1.2 cm hyperechoic lesion adjacent to this cyst which is disparate in size in comparison to 2 mm calcified calculus noted on recent CT exam. Suspect this reflects a portion of the renal sinus fat. However, differential considerations include small cyst wall nodule versus small angiomyolipoma. Further characterization may be performed on an outpatient basis with renal mass CT or MRI examination if there is continued clinical concern. Afshin Freeman MD Chest X-Ray 04/26/17 0000 Signed Impressions: Service Date/Time: Wednesday, April 26, 2017 03:43 - CONCLUSION: Stable chest Martir Gauthier MD Head CT 04/25/17 1415 Signed Impressions: Service Date/Time: Tuesday, April 25, 2017 15:26 - CONCLUSION: Old strokes and chronic white matter changes. Martir Gauthier MD Abdomen/Pelvis CT 04/25/17 Signed Impressions: Service Date/Time: Tuesday, April 25, 2017 15:34 - CONCLUSION: 1. Atherosclerosis. 2. Right renal cyst and right lower pole nonobstructing renal calculus. 3. No inflammatory changes are seen. Archie Oshea MD Assessment and Plan Disease Oriented Problem List: (1) CHF (congestive heart failure) Comment: Chronic systolic, EF 10-15 % (2) Atrial flutter with rapid ventricular response (3) CVA (cerebrovascular accident) (4) S/P CABG x 3 (5) MATTHEW (acute kidney injury) (6) Transaminitis (7) History of cocaine abuse (8) Ischemic cardiomyopathy (9) Seizure disorder (10) Hypertension (11) Hypothyroidism (12) GERD (gastroesophageal reflux disease) (13) Hepatitis C (14) Non-Hodgkin lymphoma Symptom Scale: (1) Dyspnea (2) Chest pain (3) Weakness (4) Malnutrition Pertinent Non-Medical Issues Psychosocial:Per prior palliative care H&P: Is originally from [place]. Moved to [facility] around the age of 12. 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 On disability as of 2016 palliative consult. . Previously was living with a girlfriend who assisted to care for him. Has 1 son , 1 daughter. His sister is healthcare surrogate. Spiritual:Member of [employer] Legal:Patient does not currently appear capacitated to make his medical decisions. He may possibly regain capacity. He does have healthcare surrogate designating his sister. Ethical issues impacting care: no ethical issues identified at this time Important Contacts Lashay Givens (sister and health care surrogate): [phone] hospitalized 04/28 unable to serve (non-working number) :[phone] Alisha Rivers daughter, [facility] Cortney Diaz [phone] - sister, secondary [facility] Delia , daughter: [phone] Karel, son: [phone] (not a working number, no longer his number) . Prognosis This patient has end-stage ischemic cardiomyopathy. He has had multiple hospitalizations secondary to this. He is not a candidate for LVAD or transplant, has been previously evaluated at [facility]. Cardiology has previously recommended hospice. He will continue to experience complications secondary to his disease process, and recurrent hospitalizations. He is appropriate for hospice if goals compatible . Code Status: No Code Plan * Legal decision maker: Pt capacity appears to be improving, he has some limited insight today. He does have healthcare surrogate designating his sister -- however she is acutely hospitalized and unable to serve (pt refused to designate another HCS). * Goals: discussed conditions, tx options/limitations today with pt- he seems to have some reasonable insight, though at times is reluctant to talk. Elected DNR status. Refused to pick a HCS. I will have another provider follow up with him RE code status before changing to DNR given his fluctuating mental status/insight. * Full CODE per prior request though today wants DNR ; I will have another provider follow up with him RE code status before changing to DNR given his fluctuating mental status/insight. 1230========Update, spoke again w pt at bedside, his daughter Alisha arrived-- he wishes to designated her as HCS, w sister Cortney Diaz as secondary. He says they will work together. update Alisha on condition, limited options-- she indicates she and the pt discussed DNR status earlier and that she is supportive of NO CPR/DNR status. Plan for meeting 1030 am wednesday w dtr, sister to further review hospice, limited options going forward. d/w RN , medical attending. Family Meeting set for Wednesday05/03/17 @ 1000 to discuss GOC and possible transition to comfort focused goals/Hospice. * DNR * Palliative care team is ensuring ongoing efforts are in place to speak with patient's sister Lashay who is also his health surrogate. Called patient's sister Lashay Givens, phone went straight to voicemail and voicemail is full, unable to leave message. Phone number for patient's daughter Alisha Nancy rings and does not have the availability to leave a message. Phone number for patient' s son Karel [phone], is no longer his number and he can not be reached via this number. * 04/28 @ 1106: Located contact information for patient's sister Cortney Travis, discussed and updated on patient's current clinical status. Cortney Travis indicates an understanding of Mr. Walker's end stage heart disease and is amenable to Hospice. Cortney Diaz reported patient's other sister Lashay (his designated HCS) recently suffered from a fall, was recently hospitalized, and is unable to physically come to the hospital to meet. Attempted to call updated phone number provided for dalia Metz and palliative contact information provided. * SYMPTOMS: --dyspnea- h/o COPD, tachypnea during current admission-+ dyspnea today. O2 off. Risk for 2/2 ES heart failure, On scheduled albuterol nebulizers. --chest pain - intermittent CP. Hx ES systolic heart failure, + cocaine use. Patient has morphine 2mg IV PRN, he has not required. + CP during our discussion , nursing to administer prn morphine will cont to evaluate -- weakness - Secondary to multiple comorbidities, deconditioning. Patient could benefit from PT/OT if goals remain aggressive. -- malnutrition- albumin 3.1. current weight 64.5kg . prior admissions in the past few years weights 72-75kg. +/- 10 kg weight loss in couple years. Unable to describe his appetite or intake. May benefit from nutritional supplement. appetite fluctuating past few days, eating 25-50-75% of meals * Palliative care will continue to follow during hospital course as condition evolves, to assist patient/decision-maker with understanding of medical conditions, weighing benefits/burdens of treatment options, for clarification of goals of treatment. Additionally will assist with any symptoms of palliative concern . Time Spent Total Floor Time (mins): 50 (chart review, several conversations w pt and family, d/w primary RN, med attending) Attestation To help prompt me to consider important information that might be impacting today's encounter and assessment, information from prior notes written by myself or my colleagues may have been "brought forward" into today's note. My signature on this note, however, is an attestation that I personally performed the exam, history, and/or decision-making noted today, and, unless otherwise indicated, the interactions with patient, family, and staff as well as the review of records all occurred today. I also attest that the listed assessment and stated plan reflect my best clinical judgment today based on the combination of historical information, prior notes, and today's exam/ interactions. When time spent is documented, it refers only to time spent today by the signer, or if indicated, combined time spent today by collaborating physician/nurse practitioner. Soheila Brewer Apr 30, 2017 13:07
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
[2017-05-01] VITALS (13 sets, daily range): BP systolic 96–107; BP diastolic 62–76; PULSE 50–74; RESP 10–32; TEMP 96–97.8; O2SAT 90–100
[2017-05-01] MEDS: CEFEPIME INJ 2,000 MG in SODIUM CHLORIDE 0.9% INJ 100 ML IV SCH (00:30)
[2017-05-01] MEDS: CHLORHEXIDINE GLUCONATE 2 % 1 PACK (2 CLOTHS) TOP SCH (04:00)
[2017-05-01] MEDS: LEVOTHYROXINE SODIUM 125 MCG TAB PO SCH (05:31)
[2017-05-01] MEDS: DOCUSATE SODIUM 50 MG/SENNA 8.6 MG TAB PO SCH ×2 (09:00→20:52)
[2017-05-01] MEDS: SODIUM CHLORIDE 0.9% FLUSH 10 ML FLUSH IV FLUSH SCH ×2 (09:00→20:52)
[2017-05-01] MEDS: FLUTICASONE 100 MCG/VILANTEROL 25 MCG INHALER INH SCH (09:00)
[2017-05-01] MEDS: DABIGATRAN ETEXILATE 150 MG CAP PO SCH ×2 (09:00→20:52)
[2017-05-01] MEDS: CARVEDILOL 3.125 MG TAB PO SCH ×2 (09:00→20:52)
[2017-05-01] MEDS: PANTOPRAZOLE SODIUM 40 MG VIAL IV PUSH SCH (09:15)
[2017-05-01] MEDS: ASPIRIN 81 MG CHEW TAB CHEW SCH (09:16)
[2017-05-01] MEDS: DIGOXIN 0.5 MG/2 ML VIAL IV PUSH SCH (09:16)
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
--- NOTE | 2017-05-01 12:05 | PD.CARD.PN ---
Subjective Subjective Remarks No events overnight Overall patient states he has not complaints Telemetry showing aflutter with controlled ventricular response converting to normal sinus rhythm, few episodes of wide complex tachycardia for ~8 beats, patient asymptomatic during the episode Objective Medications Current Medications Medications (Trade) Dose Ordered Sig/Alfredito Route Start Time Stop Time Status Last Admin Diltiazem HCl 125 mg/Sodium Chloride 125 ml @ 5 mls/hr TITRATE PRN IV 04/25/17 22:45 04/25/17 23:44 (NS Flush) 2 ml UNSCH PRN IV FLUSH 04/25/17 22:45 (NS Flush) 2 ml BID IV FLUSH 04/26/17 09:00 05/01/17 09:00 (Morphine Inj) 2 mg Q2H PRN IV PUSH 04/25/17 22:45 04/30/17 15:19 (Protonix Inj) 40 mg DAILY IV PUSH 04/26/17 09:00 05/01/17 09:15 (Zofran Inj) 4 mg Q6H PRN IV PUSH 04/25/17 22:45 (Albuterol Neb) 2.5 mg Q2HR NEB PRN INH 04/25/17 22:45 Miscellaneous Information 1 Q361D XX 04/25/17 22:45 04/25/17 22:45 (Chlorhexidine 2% Cloth) Taper DAILY@04 TOP 04/26/17 04:00 04/22/18 03:59 05/01/17 04:00 (Chlorhexidine 2% Cloth) 3 pack UNSCH PRN TOP 04/25/17 22:45 (Emilie-Colace) 1 tab BID PO 04/26/17 09:00 05/01/17 09:00 (Milk Of Magnesia Liq) 30 ml Q12H PRN PO 04/25/17 22:45 (Senokot) 17.2 mg Q12H PRN PO 04/25/17 22:45 (Dulcolax Supp) 10 mg DAILY PRN RECTAL 04/25/17 22:45 (Lactulose Liq) 30 ml DAILY PRN PO 04/25/17 22:45 (Pradaxa) 150 mg BID PO 04/25/17 23:15 05/01/17 09:00 Cefepime HCl 2000 mg/Sodium Chloride 100 ml @ 200 mls/hr Q12H IV 04/26/17 00:01 05/01/17 00:30 (Aspirin Chew) 81 mg DAILY CHEW 04/26/17 09:00 05/01/17 09:16 (Breo Ellipta 100-25 Inh) 1 puff DAILY INH 04/26/17 09:00 04/30/17 09:18 (Lanoxin Inj) 0.125 mg DAILY IV PUSH 04/26/17 19:00 05/01/17 09:16 (Synthroid) 125 mcg DAILY@0600 PO 04/26/17 06:00 05/01/17 05:31 (Coreg) 3.125 mg Q12HR PO 04/27/17 14:00 05/01/17 09:00 Vital Signs / I&O Vital Signs Date Time Temp Pulse Resp B/P (MAP) Pulse Ox O2 Delivery O2 Flow Rate FiO2 05/01/17 10:00 50 05/01/17 08:21 98 Nasal Cannula 2.00 05/01/17 08:00 97.6 63 12 96/62 (73) 95 05/01/17 08:00 63 05/01/17 06:00 68 05/01/17 04:00 72 05/01/17 04:00 97.6 72 12 107/73 (84) 95 05/01/17 02:00 71 05/01/17 00:00 68 05/01/17 00:00 96.0 68 10 104/76 (85) 95 04/30/17 22:00 66 04/30/17 22:00 66 04/30/17 20:00 64 04/30/17 20:00 96.0 64 18 98/71 (80) 04/30/17 19:05 99 Nasal Cannula 2.00 04/30/17 18:00 66 04/30/17 16:00 97.3 68 30 101/66 (78) 04/30/17 16:00 68 I/O 04/30/17 04/30/17 04/30/17 05/01/17 05/01/17 05/01/17 07:00 15:00 23:00 07:00 15:00 23:00 Intake Total 600 ml 100 ml 640 ml 200 ml Output Total 390 ml 325 ml 375 ml Balance 210 ml 100 ml 315 ml -175 ml Intake Oral 500 ml 640 ml 200 ml IV Total 100 ml 100 ml Output Urine Total 390 ml 325 ml 375 ml Stool Total 0 ml # Voids 1 # Bowel Movements 2 3 0 Physical Exam GENERAL: NAD, alert and awake, not really oriented SKIN: Warm and dry. HEAD: Atraumatic. Normocephalic. EYES: Pupils equal and round. No scleral icterus. No injection or drainage. ENT: No nasal bleeding or discharge. Mucous membranes pink and moist. NECK: Trachea midline. No JVD. CARDIOVASCULAR: Regular rate and rhythm RESPIRATORY: No accessory muscle use. Decreased breath sounds bilaterally GASTROINTESTINAL: Abdomen soft, non-tender, nondistended. Hepatic and splenic margins not palpable. MUSCULOSKELETAL: Extremities without clubbing, cyanosis, or edema. No obvious deformities. NEUROLOGICAL: Awake and alert. No obvious cranial nerve deficits. Motor grossly within normal limits. Five out of 5 muscle strength in the arms and legs. Normal speech. PSYCHIATRIC: Appropriate mood and affect; insight and judgment normal. Laboratory Laboratory Tests Test 04/29/17 13:44 Blood Urea Nitrogen 60 MG/DL (7-18) Creatinine 1.25 MG/DL (0.60-1.30) Random Glucose 117 MG/DL (74-106) Total Protein 6.8 GM/DL (6.4-8.2) Albumin 2.3 GM/DL (3.4-5.0) Calcium Level 8.9 MG/DL (8.5-10.1) Phosphorus Level 2.5 MG/DL (2.5-4.9) Magnesium Level 2.6 MG/DL (1.5-2.5) Alkaline Phosphatase 78 U/L (45-117) Aspartate Amino Transf (AST/SGOT) 191 U/L (15-37) Alanine Aminotransferase (ALT/SGPT) 352 U/L (12-78) Total Bilirubin 2.2 MG/DL (0.2-1.0) Direct Bilirubin 1.3 MG/DL (0.0-0.2) Sodium Level 141 MEQ/L (136-145) Potassium Level 4.9 MEQ/L (3.5-5.1) Chloride Level 112 MEQ/L (98-107) Carbon Dioxide Level 21.2 MEQ/L (21.0-32.0) Anion Gap 8 MEQ/L (5-15) Estimat Glomerular Filtration Rate 70 ML/MIN (>89) Indirect Bilirubin 0.9 MG/DL (0.0-0.8) Lipase 1605 U/L (73-393) Assessment and Plan Problem List: (1) Ischemic cardiomyopathy ICD Codes: I25.5 - Generalized ischemic myocardial dysfunction Status: Chronic (2) Cocaine abuse ICD Codes: F14.10 - Cocaine abuse Status: Acute (3) Right leg DVT ICD Codes: I82.401 - Right leg DVT Status: Acute (4) CAD (coronary artery disease) ICD Codes: I25.10 - Atherosclerosis of coronary artery Status: Chronic (5) Hypertension ICD Codes: I10 - Hypertension Status: Chronic (6) CHF (congestive heart failure) ICD Codes: I50.9 - Congestive heart failure Status: Acute (7) Diabetes ICD Codes: E11.9 - Diabetes mellitus Status: Chronic (8) Atrial flutter with rapid ventricular response ICD Codes: I48.92 - Unspecified atrial flutter Status: Acute (9) Transaminitis ICD Codes: R74.0 - Nonspecific elevation of levels of transaminase and lactic acid dehydrogenase [LDH] Status: Acute (10) CVA (cerebrovascular accident) ICD Codes: I63.9 - Cerebral infarction, unspecified Assessment and Plan 1) Atrial flutter controlled on Coreg/Digoxin Will continue current medications Avoid Cardizem/CCB if possible usp due to low EF and concern for cardiac depression Coreg not ideal, but has alpha-blocking 2) Crack cocaine abuse 3) Tobacco abuse 4) Elevated troponin Most likely type 2 with elevated CKs, and sitting in a chair for 30 hours without moving 5) CHADSVASc = 5, con't Dabigatran 6) Lower extremity DVT Currently on Dabigatran for Afib 7) Wide complex tachycardia Mostly appear to be aflutter with aberrancy, but possible NSVT Con't BB Has cardiomyopathy, not a candidate for Lifevest/ICD at this time as has not had follow up, not compliant with medications, as well as con't crack cocaine abuse 8) Await palliative care meeting with the family Previously recommended hospice by Dr. Sanabria due to end stage heart disease Evaluated at [facility] for LVAD/transplant, but not a candidate Once decision on management, will further decide on how aggressive patient and family want to be Now DNR with a plan for possible home hospice next week, family to meet with palliative care for further determination 9) Will see PRN, call with questions Problem Qualifiers (1) CHF (congestive heart failure): Qualified Codes: I50.22 - Chronic systolic (congestive) heart failure Manpreet Blanca DO May 01, 2017 12:05
[2017-05-02] VITALS (13 sets, daily range): BP systolic 98–129; BP diastolic 58–71; PULSE 62–80; RESP 16–29; TEMP 97.3–98; O2SAT 84–98
[2017-05-02] MEDS: CEFEPIME INJ 2,000 MG in SODIUM CHLORIDE 0.9% INJ 100 ML IV SCH ×3 (00:01→12:01)
[2017-05-02] MEDS: CHLORHEXIDINE GLUCONATE 2 % 1 PACK (2 CLOTHS) TOP SCH (04:00)
[2017-05-02 06:52] LABS: BICARBONATE 22.6 MEQ/L (21.0-32.0); POTASSIUM 5.6 MEQ/L (3.5-5.1)
[2017-05-02] MEDS: LEVOTHYROXINE SODIUM 125 MCG TAB PO SCH (06:55)
[2017-05-02] MEDS: SODIUM CHLORIDE 0.9% FLUSH 10 ML FLUSH IV FLUSH SCH ×2 (09:00→20:55)
[2017-05-02] MEDS: DOCUSATE SODIUM 50 MG/SENNA 8.6 MG TAB PO SCH ×2 (09:00→20:55)
[2017-05-02] MEDS: FLUTICASONE 100 MCG/VILANTEROL 25 MCG INHALER INH SCH (09:00)
[2017-05-02] MEDS: DIGOXIN 0.5 MG/2 ML VIAL IV PUSH SCH (09:00)
[2017-05-02] MEDS: PANTOPRAZOLE SODIUM 40 MG VIAL IV PUSH SCH (09:00)
[2017-05-02] MEDS: CARVEDILOL 3.125 MG TAB PO SCH ×2 (09:00→20:55)
[2017-05-02] MEDS: ASPIRIN 81 MG CHEW TAB CHEW SCH (09:00)
[2017-05-02] MEDS: DABIGATRAN ETEXILATE 150 MG CAP PO SCH ×2 (09:00→20:55)
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
[2017-05-03] VITALS (12 sets, daily range): BP systolic 107–125; BP diastolic 60–79; PULSE 65–79; RESP 18–35; TEMP 97.1–98.6; O2SAT 95–100
[2017-05-03] MEDS: CEFEPIME INJ 2,000 MG in SODIUM CHLORIDE 0.9% INJ 100 ML IV SCH ×3 (00:01→23:59)
[2017-05-03] MEDS: CHLORHEXIDINE GLUCONATE 2 % 1 PACK (2 CLOTHS) TOP SCH (04:00)
[2017-05-03 05:47] LABS: BASOPHIL % 0.4 % (0.0-2.0); EOSINOPHIL % 0.2 % (0.0-4.0); HEMATOCRIT 47.3 % (39.0-51.0); HEMO FLAGS DIFF FINAL; LYMPH % 20.2 % (9.0-44.0); LYMPHOCYTE # 1.4 TH/MM3 (1.0-4.8); MEAN CELL VOLUME 99.1 FL (80.0-100.0); MEAN CORPUSCULAR HEMOGLOBIN 32.7 PG (27.0-34.0); MEAN CORPUSCULAR HGB CONC 33.1 % (32.0-36.0); MONO % 9.1 % (0.0-8.0); NEUT % 70.1 % (16.0-70.0); PLATELET COUNT 114 TH/MM3 (150-450); RED BLOOD COUNT 4.78 MIL/MM3 (4.50-5.90); RED CELL DISTRIBUTION WIDTH 15.2 % (11.6-17.2); WHITE BLOOD COUNT 7.1 TH/MM3 (4.0-11.0)
[2017-05-03 05:48] LABS: INTERNATIONAL NORMALIZED RATIO 1.5 RATIO; PROTHROMBIN TIME - PATIENT 16.3 SEC (9.8-11.6)
[2017-05-03] MEDS: LEVOTHYROXINE SODIUM 125 MCG TAB PO SCH (05:54)
[2017-05-03 06:00] LABS: ALT (GPT) 195 U/L (12-78); ANION GAP 10 MEQ/L (5-15); AST (GOT) 85 U/L (15-37); BICARBONATE 21.8 MEQ/L (21.0-32.0); BLOOD UREA NITROGEN 44 MG/DL (7-18); CHLORIDE 109 MEQ/L (98-107); GLOMERULAR FILTRATION RATE 94 ML/MIN (>89); POTASSIUM 4.7 MEQ/L (3.5-5.1); SODIUM (NA) 141 MEQ/L (136-145)
[2017-05-03 06:04] LABS: ALKALINE PHOSPHATASE 87 U/L (45-117); AMYLASE 189 U/L (25-115); FREE T4 1.33 NG/DL (0.76-1.46); HDL CHOLESTEROL 14.4 MG/DL (40.0-60.0); LDL CHOLESTEROL 70 MG/DL (0-99); TOTAL BILIRUBIN ADULT 2.7 MG/DL (0.2-1.0)
[2017-05-03] MEDS: DABIGATRAN ETEXILATE 150 MG CAP PO SCH ×2 (08:06→21:28)
[2017-05-03] MEDS: CARVEDILOL 3.125 MG TAB PO SCH ×2 (08:06→21:28)
[2017-05-03] MEDS: SODIUM CHLORIDE 0.9% FLUSH 10 ML FLUSH IV FLUSH SCH ×2 (08:06→23:59)
[2017-05-03] MEDS: PANTOPRAZOLE SODIUM 40 MG VIAL IV PUSH SCH (08:06)
[2017-05-03] MEDS: ASPIRIN 81 MG CHEW TAB CHEW SCH (08:06)
[2017-05-03] MEDS: DOCUSATE SODIUM 50 MG/SENNA 8.6 MG TAB PO SCH ×2 (08:07→21:28)
[2017-05-03] MEDS: FLUTICASONE 100 MCG/VILANTEROL 25 MCG INHALER INH SCH (08:07)
[2017-05-03] MEDS: DIGOXIN 0.5 MG/2 ML VIAL IV PUSH SCH (08:08)
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
--- NOTE | 2017-05-03 11:45 | HHI.HCPN ---
Reason for visit a. To assist with evaluation and management of symptoms including:chest pain , dyspnea, weakness. b. To assist medical decision maker(s) with: better understanding of current medical conditions; weighing benefits/burdens of medical treatment options; making medical treatment decisions. Subjective/Interval History Patient seen and examined in ICU. He is awake and alert. He denies pain. Poor appetite. Vital signs stable. Total bilirubin 2.7. Of note this patient was previously seen by palliative care July 2015-- during his third acute care hospitalization and a one-month time at that time. He was noted then to have significant ischemic cardiomyopathy with EF of 10%, and had a CODE BLUE event during that hospitalization he was eventually discharged to [facility] for further evaluation for LVAD and/or transplant however he was deemed not a candidate. He was then returned to [place] at which point palliative care was consulted. At that time palliative provider notes he seemed to understand he had end-stage cardiac disease however was hopeful that he still had time remaining and was not interested in hospice services at that time. . Family/friend interactions Met with patient, he agrees to me meeting with family in consult room. Met with sister, Cortney Diaz ([facility]) and girlfriend, Rohini in consult room. Attempted to call daughter, Alisha, no answer - unable to leave a message. Family hopes to bring patient home with hospice services. Reviewed hospice services and poor prognosis. Will consult hospice. . Advance Directives Living Will: Never completed Health Care Surrogate: Copy in medical record Advance Directive Specifics Date completed: 04/30/17 Health Care Surrogate(s): Designated health care surrogate, Alisha Walker (daughter) and alternate [facility] Cortney Walker (sister). . Significant change in goals: NO CODE. Plan for transition to comfort measures with hospice support. Desires [facility]. Hospice consult pending. . Objective Vital Signs Date Time Temp Pulse Resp B/P (MAP) Pulse Ox O2 Delivery O2 Flow Rate FiO2 05/03/17 10:00 66 05/03/17 08:00 67 05/03/17 08:00 97.7 67 22 115/72 (86) 100 05/03/17 06:00 65 05/03/17 04:00 97.1 73 35 125/74 (91) 95 05/03/17 04:00 73 05/03/17 02:00 79 05/03/17 00:00 98.2 79 20 110/78 (89) 100 05/03/17 00:00 79 05/02/17 22:00 79 05/02/17 20:00 77 05/02/17 20:00 97.5 77 29 129/71 (90) 98 05/02/17 18:00 62 05/02/17 16:00 97.8 80 18 98/70 (79) 98 05/02/17 16:00 62 05/02/17 14:00 62 05/02/17 12:00 62 05/02/17 12:00 98.0 80 18 108/62 (77) 98 Intake & Output 05/03/17 05/03/17 07:00 19:00 Intake Total 500 ml Output Total 2 ml Balance 498 ml Intake Oral 500 ml Output Urine Total 2 ml # Bowel Movements 2 Physical Exam CONSTITUTIONAL/GENERAL: This is a frail, chronically ill appearing patient TUBES/LINES/DRAINS: PIV RUE, NC O2, Condom catheter CARDIOVASCULAR: Irregular, rate 60's. Feet cool RESPIRATORY/CHEST: Symmetric, unlabored respirations. ON 2 L NC (reapplied). Clear to auscultation. Breath sounds equal bilaterally. GASTROINTESTINAL: Abdomen soft, flat ,nontender , nondistended. No palpable masses. No guarding. Bowel sounds normoactive GENITOURINARY: Without palpable bladder distension. Condom catheter in place. MUSCULOSKELETAL: Extremities without clubbing, cyanosis, or edema. extremities very thin NEUROLOGICAL: Awake and alert. Speech soft, very difficult to understand, slow to find words/respond. Moves all 4 extremities-- follows commands. PSYCHIATRIC: No obvious anxiety/depression. . Diagnostic Tests Laboratory Laboratory Tests Test 05/02/17 05:08 05/03/17 05:26 Blood Urea Nitrogen 54 MG/DL (7-18) 44 MG/DL (7-18) Creatinine 1.04 MG/DL (0.60-1.30) 0.97 MG/DL (0.60-1.30) Random Glucose 79 MG/DL (74-106) 94 MG/DL (74-106) Calcium Level 8.7 MG/DL (8.5-10.1) 9.1 MG/DL (8.5-10.1) Sodium Level 140 MEQ/L (136-145) 141 MEQ/L (136-145) Potassium Level 5.6 MEQ/L (3.5-5.1) 4.7 MEQ/L (3.5-5.1) Chloride Level 109 MEQ/L (98-107) 109 MEQ/L (98-107) Carbon Dioxide Level 22.6 MEQ/L (21.0-32.0) 21.8 MEQ/L (21.0-32.0) Anion Gap 8 MEQ/L (5-15) 10 MEQ/L (5-15) Estimat Glomerular Filtration Rate 86 ML/MIN (>89) 94 ML/MIN (>89) White Blood Count 7.1 TH/MM3 (4.0-11.0) Red Blood Count 4.78 MIL/MM3 (4.50-5.90) Hemoglobin 15.6 GM/DL (13.0-17.0) Hematocrit 47.3 % (39.0-51.0) Mean Corpuscular Volume 99.1 FL (80.0-100.0) Mean Corpuscular Hemoglobin 32.7 PG (27.0-34.0) Mean Corpuscular Hemoglobin Concent 33.1 % (32.0-36.0) Red Cell Distribution Width 15.2 % (11.6-17.2) Platelet Count 114 TH/MM3 (150-450) Mean Platelet Volume 10.1 FL (7.0-11.0) Neutrophils (%) (Auto) 70.1 % (16.0-70.0) Lymphocytes (%) (Auto) 20.2 % (9.0-44.0) Monocytes (%) (Auto) 9.1 % (0.0-8.0) Eosinophils (%) (Auto) 0.2 % (0.0-4.0) Basophils (%) (Auto) 0.4 % (0.0-2.0) Neutrophils # (Auto) 5.0 TH/MM3 (1.8-7.7) Lymphocytes # (Auto) 1.4 TH/MM3 (1.0-4.8) Monocytes # (Auto) 0.6 TH/MM3 (0-0.9) Eosinophils # (Auto) 0.0 TH/MM3 (0-0.4) Basophils # (Auto) 0.0 TH/MM3 (0-0.2) CBC Comment DIFF FINAL Differential Comment Prothrombin Time 16.3 SEC (9.8-11.6) Prothromb Time International Ratio 1.5 RATIO Total Protein 8.0 GM/DL (6.4-8.2) Albumin 2.6 GM/DL (3.4-5.0) Phosphorus Level 1.9 MG/DL (2.5-4.9) Magnesium Level 2.0 MG/DL (1.5-2.5) Alkaline Phosphatase 87 U/L (45-117) Aspartate Amino Transf (AST/SGOT) 85 U/L (15-37) Alanine Aminotransferase (ALT/SGPT) 195 U/L (12-78) Total Bilirubin 2.7 MG/DL (0.2-1.0) Ammonia 33 MCMOL/L (11-32) Triglycerides Level 100 MG/DL (42-150) Cholesterol Level 104 MG/DL (120-200) LDL Cholesterol 70 MG/DL (0-99) HDL Cholesterol 14.4 MG/DL (40.0-60.0) Cholesterol/HDL Ratio 7.22 RATIO Amylase Level 189 U/L (25-115) Lipase 1165 U/L (73-393) Free Thyroxine 1.33 NG/DL (0.76-1.46) Thyroid Stimulating Hormone 3rd Gen 5.570 uIU/ML (0.358-3.740) Result Diagram: 05/03/1726 05/03/17525 Microbiology Microbiology Date/Time Source Procedure Growth Status 04/25/17 14:25 Blood Peripheral Aerobic Blood Culture - Final NO GROWTH IN 5 DAYS Complete 04/25/17 14:25 Blood Peripheral Anaerobic Blood Culture - Final NO GROWTH IN 5 DAYS Complete 04/29/17 14:15 Stool Stool Stool Occult Blood (JASMINA) - Final HEMOCCULT POSITIVE Complete Imaging Last Impressions Lower Extremity Ultrasound 04/26/17 0000 Signed Impressions: Service Date/Time: Wednesday, April 26, 2017 08:27 - CONCLUSION: Venous Doppler positive both legs. Frank Desir MD FACR Liver Ultrasound 04/26/17 0000 Signed Impressions: Service Date/Time: Wednesday, April 26, 2017 08:07 - CONCLUSION: 1. Minimally enlarged mildly hyperechoic liver consistent with hepatic steatosis or medical liver disease. 2. Trace gallbladder sludge. Otherwise, no sonographic evidence for acute cholecystitis. 3. Stable 6.5 cm simple appearing cyst in the inferior pole of the right kidney. However, there is a 1.2 cm hyperechoic lesion adjacent to this cyst which is disparate in size in comparison to 2 mm calcified calculus noted on recent CT exam. Suspect this reflects a portion of the renal sinus fat. However, differential considerations include small cyst wall nodule versus small angiomyolipoma. Further characterization may be performed on an outpatient basis with renal mass CT or MRI examination if there is continued clinical concern. Afshin Freeman MD Chest X-Ray 04/26/17 0000 Signed Impressions: Service Date/Time: Wednesday, April 26, 2017 03:43 - CONCLUSION: Stable chest Martir Gauthier MD Head CT 04/25/17 1415 Signed Impressions: Service Date/Time: Tuesday, April 25, 2017 15:26 - CONCLUSION: Old strokes and chronic white matter changes. Martir Gauthier MD Abdomen/Pelvis CT 04/25/17 0000 Signed Impressions: Service Date/Time: Tuesday, April 25, 2017 15:34 - CONCLUSION: 1. Atherosclerosis. 2. Right renal cyst and right lower pole nonobstructing renal calculus. 3. No inflammatory changes are seen. Archie Oshea MD Assessment and Plan Disease Oriented Problem List: (1) CHF (congestive heart failure) Comment: Chronic systolic, EF 10-15 % (2) Atrial flutter with rapid ventricular response (3) CVA (cerebrovascular accident) (4) S/P CABG x 3 (5) MATTHEW (acute kidney injury) (6) Transaminitis (7) History of cocaine abuse (8) Ischemic cardiomyopathy (9) Seizure disorder (10) Hypertension (11) Hypothyroidism (12) GERD (gastroesophageal reflux disease) (13) Hepatitis C (14) Non-Hodgkin lymphoma Symptom Scale: (1) Dyspnea 0-10 Scale: 0 Comment: denies SOB (2) Chest pain 0-10 Scale: 0 Comment: denies during my visit (3) Weakness 0-10 Scale: Unable to quantify Comment: bedbound, dependent for care, feeds self. Pertinent Non-Medical Issues Psychosocial: Per prior palliative care H&P: Is originally from [place]. Moved to [facility] around the age of 12. 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 On disability as of 2015 palliative consult. . Previously was living with a girlfriend who assisted to care for him. Has 1 son , 1 daughter. Spiritual:[employer] Legal: Patient designated his daughter, Alisha Walker as primary HCS and sister, Cortney Diaz as alternate HCS on 04/30/17. Ethical issues impacting care: no ethical issues identified at this time Important Contacts * Alisha Walker [phone] daughter, primary HCS * Cortney Diza [phone] - sister, secondary HCS * Lashay Givens (sister): [phone] hospitalized 04/28 unable to serve * * (non-working number) :[phone] * Delia , daughter: [phone] * Karel, son: [phone] (not a working number, no longer his number) * Rohini, girlfriend: [phone] . Prognosis This patient has end-stage ischemic cardiomyopathy. He has had multiple hospitalizations secondary to this. He is not a candidate for LVAD or transplant, has been previously evaluated at [facility]. Cardiology has previously recommended hospice. He will continue to experience complications secondary to his disease process, and recurrent hospitalizations. He is appropriate for hospice if goals compatible . Code Status: No Code Plan * Legal decision maker: Pt capacity appears to be improving. Patient designated his daughterAlisha as primary HCS and sister, Cortney Diaz as alternate HCS on 04/30/17. * Goals: 05/03/17 Met with sister, Cortney Diaz (HCS) and girlfriend, Rohini in consult room. Family has elected to proceed with transition to comfort measures with hospice support. They hope to take him home with [facility]. Attempted to call Alisha lamar no answer, unable to leave a message. She supported comfort measures on 04/30/17. * NO CODE (DNR/DNI) * SYMPTOMS: -- dyspnea- h/o COPD, tachypnea during current admission-+ dyspnea today. O2 off. Risk for 2/2 ES heart failure, On scheduled albuterol nebulizers. -- chest pain - intermittent CP. Hx ES systolic heart failure, + cocaine use. Patient has morphine 2mg IV PRN, he has not required. + CP during our discussion, nursing to administer prn morphine will cont to evaluate. Denies pain during my visit today. -- weakness - Secondary to multiple comorbidities, deconditioning. Patient could benefit from PT/OT if goals remain aggressive. -- malnutrition- albumin 2.6. Appetite fluctuating past few days, eating 25- 50-75% of meals. * Palliative care will continue to follow during hospital course as condition evolves, to assist patient/decision-maker with understanding of medical conditions, weighing benefits/burdens of treatment options, for clarification of goals of treatment. Additionally will assist with any symptoms of palliative concern . Attestation To help prompt me to consider important information that might be impacting today's encounter and assessment, information from prior notes written by myself or my colleagues may have been "brought forward" into today's note. My signature on this note, however, is an attestation that I personally performed the exam, history, and/or decision-making noted today, and, unless otherwise indicated, the interactions with patient, family, and staff as well as the review of records all occurred today. I also attest that the listed assessment and stated plan reflect my best clinical judgment today based on the combination of historical information, prior notes, and today's exam/ interactions. When time spent is documented, it refers only to time spent today by the signer, or if indicated, combined time spent today by collaborating physician/nurse practitioner. María Elena Avalos May 03, 2017 11:44
[2017-05-03 16:58] LABS: HEMOGLOBIN A1b 1.6 %; HEMOGLOBIN Ao 83.9 %; HEMOGLOBIN LA1C 2.1 %; HEMOGLOBIN P3 6.1 %
[2017-05-04] VITALS (8 sets, daily range): BP systolic 104–121; BP diastolic 64–74; PULSE 64–79; RESP 14–24; TEMP 97.2–98.4; O2SAT 95–98
[2017-05-04] MEDS: CHLORHEXIDINE GLUCONATE 2 % 1 PACK (2 CLOTHS) TOP SCH (04:00)
[2017-05-04 05:57] LABS: BASOPHIL % 0.7 % (0.0-2.0); EOSINOPHIL % 0.2 % (0.0-4.0); HEMATOCRIT 45.8 % (39.0-51.0); LYMPH % 21.3 % (9.0-44.0); LYMPHOCYTE # 1.3 TH/MM3 (1.0-4.8); MEAN CELL VOLUME 99.9 FL (80.0-100.0); MEAN CORPUSCULAR HEMOGLOBIN 33.3 PG (27.0-34.0); MEAN CORPUSCULAR HGB CONC 33.4 % (32.0-36.0); MONO % 14.7 % (0.0-8.0); NEUT % 63.1 % (16.0-70.0); PLATELET COUNT 94 TH/MM3 (150-450); RED BLOOD COUNT 4.58 MIL/MM3 (4.50-5.90); RED CELL DISTRIBUTION WIDTH 14.9 % (11.6-17.2); WHITE BLOOD COUNT 6.3 TH/MM3 (4.0-11.0)
[2017-05-04 06:14] LABS: HEMO FLAGS AUTO DIFF
[2017-05-04 06:24] LABS: ALKALINE PHOSPHATASE 76 U/L (45-117); ALT (GPT) 148 U/L (12-78); ANION GAP 10 MEQ/L (5-15); AST (GOT) 73 U/L (15-37); BICARBONATE 20.2 MEQ/L (21.0-32.0); BLOOD UREA NITROGEN 31 MG/DL (7-18); CHLORIDE 110 MEQ/L (98-107); GLOMERULAR FILTRATION RATE 112 ML/MIN (>89); MAGNESIUM 1.8 MG/DL (1.5-2.5); POTASSIUM 4.4 MEQ/L (3.5-5.1); SODIUM (NA) 140 MEQ/L (136-145); TOTAL BILIRUBIN ADULT 2.6 MG/DL (0.2-1.0)
[2017-05-04] MEDS: LEVOTHYROXINE SODIUM 125 MCG TAB PO SCH (06:34)
[2017-05-04 07:25] LABS: SCAN/DIFF AUTO DIFF CONFIRMED
[2017-05-04] MEDS: PANTOPRAZOLE SODIUM 40 MG VIAL IV PUSH SCH (07:30)
[2017-05-04] MEDS: ASPIRIN 81 MG CHEW TAB CHEW SCH (07:31)
[2017-05-04] MEDS: FLUTICASONE 100 MCG/VILANTEROL 25 MCG INHALER INH SCH (07:33)
[2017-05-04] MEDS: DABIGATRAN ETEXILATE 150 MG CAP PO SCH (07:33)
[2017-05-04] MEDS: CARVEDILOL 3.125 MG TAB PO SCH (07:33)
[2017-05-04] MEDS: DIGOXIN 0.5 MG/2 ML VIAL IV PUSH SCH (07:33)
[2017-05-04] MEDS: DOCUSATE SODIUM 50 MG/SENNA 8.6 MG TAB PO SCH (07:34)
[2017-05-04] MEDS: SODIUM CHLORIDE 0.9% FLUSH 10 ML FLUSH IV FLUSH SCH (07:34)
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
[2017-05-04] MEDS ORDERED: CARV3.125 PO (10:11)
[2017-05-04] MEDS ORDERED: DIGO50SO PO (10:11)
[2017-05-04] MEDS ORDERED: LEVO125T4 PO (10:11)
[2017-05-04] MEDS ORDERED: FLUT1INH INH (10:11)
[2017-05-04] MEDS ORDERED: ALBU0.08 INH (10:11)
[2017-05-04] MEDS ORDERED: PRAD150C PO (10:11)
[2017-05-04] MEDS ORDERED: ASPI81CH CHEW (10:11)
[2017-05-04] MEDS ORDERED: FURO40TA PO (10:11)
[2017-05-04] MEDS ORDERED: PROTPAK PO (10:11)
[2017-05-04] MEDS ORDERED: POTA10TA15 PO (10:11)
[2017-05-04] MEDS ORDERED: RANI150C PO (10:11)
[2017-05-04] MEDS ORDERED: NEBULIZER1 MI1 (10:13)
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
[2017-05-04] MEDS: CEFEPIME INJ 2,000 MG in SODIUM CHLORIDE 0.9% INJ 100 ML IV SCH (12:08)
== END 2017-05-04 14:00 | disposition hospice, inpatient (51) | DRG 302 ==
LOC: NEPC 14:01 → NEDA 18:28 → HIMW 21:55
PROVIDERS: ADMIT Hospitalist; ATTEND Hospitalist
DX: I25.5 Ischemic cardiomyopathy (principal); K85.90 Acute pancreatitis without necrosis or infection, unspecified; N17.9 Acute kidney failure, unspecified; I47.2 Ventricular tachycardia; E46 Unspecified protein-calorie malnutrition; I11.0 Hypertensive heart disease with heart failure; I95.9 Hypotension, unspecified; C85.90 Non-Hodgkin lymphoma, unspecified, unspecified site; I50.22 Chronic systolic (congestive) heart failure; I48.92 Unspecified atrial flutter; I48.91 Unspecified atrial fibrillation; I82.503 Chronic embolism and thrombosis of unspecified deep veins of lower extremity, bilateral; G93.89 Other specified disorders of brain; K76.0 Fatty (change of) liver, not elsewhere classified; J44.9 Chronic obstructive pulmonary disease, unspecified; I08.1 Rheumatic disorders of both mitral and tricuspid valves; I69.331 Monoplegia of upper limb following cerebral infarction affecting right dominant side; B19.20 Unspecified viral hepatitis C without hepatic coma; E03.9 Hypothyroidism, unspecified; I25.10 Atherosclerotic heart disease of native coronary artery without angina pectoris; F14.10 Cocaine abuse, uncomplicated; G40.909 Epilepsy, unspecified, not intractable, without status epilepticus; R74.0 Nonspecific elevation of levels of transaminase and lactic acid dehydrogenase [LDH]; E78.5 Hyperlipidemia, unspecified; E11.9 Type 2 diabetes mellitus without complications; S31.819A Unspecified open wound of right buttock, initial encounter; K21.9 Gastro-esophageal reflux disease without esophagitis; F17.210 Nicotine dependence, cigarettes, uncomplicated; Z51.5 Encounter for palliative care; Z66 Do not resuscitate; Z79.01 Long term (current) use of anticoagulants; Z79.82 Long term (current) use of aspirin; Z74.01 Bed confinement status; Z95.1 Presence of aortocoronary bypass graft; Z92.21 Personal history of antineoplastic chemotherapy; X50.1XXA Overexertion from prolonged static or awkward postures, initial encounter; Z95.5 Presence of coronary angioplasty implant and graft
CPT/HCPCS: 36600; 51702; 70450; 71010; 74176; 76705; 76937; 80048; 80053; 80061; 80074; 80076; 80162; 80307; 81001; 82140; 82150; 82272; 82550; 82552; 82805; 83036; 83605; 83690; 83735; 83880; 83930; 84100; 84439; 84443; 84484; 85025; 85610; 85730; 87040; 87641; 93005; 93970; 94002; 94640; 94664; 96361; 96365; 96367; 96375; 96376; C9113; J0692; J1160; J2270; J2543; J7030; J7040